=== PATIENT | female | born 1950 | race Caucasian/White ===

== ENCOUNTER 2022-05-30 16:41 | Emergency (ER) | payer MEDICARE, OTHER, SELFPAY ==
[2022-05-30 17:08] VITALS: BP 136/102; PULSE 99; RESP 20; TEMP 36.6; O2SAT 96
--- NOTE | 2022-05-30 17:43 | ED.EYEPROB ---
HPI - Eye Problem General Chief complaint: Eye Problems Stated complaint: infected L eye Time Seen by Provider: 05/30/22 16:46 Source: patient and family Mode of arrival: ambulatory Limitations: no limitations History of Present Illness MD chief complaint: eye pain and eye redness Onset (ago): hour(s) Onset description: sudden Duration: constant Location: left eye Eye Symptoms: burning and redness Place: street/outdoors Severity: mild Review of Systems Review of Systems: All systems reviewed & are unremarkable except as noted in HPI and below [facility] Past Medical History Medical History HTN (hypertension) Exam Const: General: healthy appearing and no acute distress Limitations: no limitations HENMT: Head: normal to inspection Ears: external ears normal Face/Nose/Sinus: Normal external nose present Face and sinus: normal facial exam Eyes: Conjunctivae: conjunctival abnormality EOM: EOMs intact bilaterally Direct Ophthalmoscopy: no photophobia Other: conjunctival injection with no foreign object visualized Neck: Neck: normal visual inspection Chest: Chest palpation & inspection: normal inspection of the chest Resp: Effort & Inspection: normal respiratory effort Auscultation: clear to auscultation bilaterally Cardio: Rate: regular rate Rhythm: regular rhythm GI: Auscultation: normal bowel sounds Urinary Catheter: Urinary Catheter: patent and draining Back/Spine/Pelvis: Back: no CVA tenderness Skin: General skin exam: normal color Rashes: no rashes Neuro: General: patient oriented x3, moves all extremities, no meningeal signs and no focal motor deficits Extrem: General: normal to inspection and no clubbing, cyanosis or edema Psych: Mental Status: mental status grossly normal Affect: normal affect Course Course Emergency Course: left I irrigated and examined there was no foreign object of the conjunctiva is irritated with clear discharge fluorescein stain was used and there was no corneal abrasion. Vital Signs Vital signs: Vital Signs Temperature 36.6 C 05/30/22 17:08 Pulse Rate 99 05/30/22 17:08 Respiratory Rate 20 05/30/22 17:08 Blood Pressure 136/102 H 05/30/22 17:08 Pulse Oximetry 96 05/30/22 17:08 Oxygen Delivery Room Air 05/30/22 17:08 Temperature 36.6 C 05/30/22 17:08 Pulse Rate 99 05/30/22 17:08 Respiratory Rate 20 05/30/22 17:08 Blood Pressure 136/102 H 05/30/22 17:08 Pulse Oximetry 96 05/30/22 17:08 Oxygen Delivery Room Air 05/30/22 17:08 Procedures FB Removal Eye Foreign Body #1: Foreign Body Removal Date: 05/30/22 Time Out performed: Yes Location: eye (L) Topical anesthetic used: tetracaine Evidence of corneal penetration: No Technique: irrigation and eye wash bottle Procedure performed under: direct visualization with magnification Post-procedure medication: ophthalmic antibiotic Patient tolerated procedure: well Complications: other ( No foreign body visualized no corneal abrasions) Critical Care Time Critical Care Time Critical Care Time: No Discharge Plan Discharge Clinical Impression: Bacterial conjunctivitis Patient Disposition: Home, Self-Care Condition: Stable Instructions: Antibiotic Form, Conjunctivitis (ED) Additional Instructions: take medicine as prescribed and follow-up with primary care physician if symptoms persist or worsen. Prescriptions: New ciprofloxacin HCl 0.3 % drops See Rx Instructions .ROUTE .COMPLEX 7 Days Qty: 5 0RF Rx Instructions: put 1-2 drps in affected eye(s) every 2hr up to 8 times/day x2days; then 4 times/day x5days Follow-up/Referrals: Cowyatt,Regis Jennings MD [Primary Care Provider] - Time of Disposition: 17:48
[2022-05-30 18:14] VITALS: BP 143/100; PULSE 96; RESP 20; TEMP 36.6; O2SAT 97
== END 2022-05-30 18:16 | disposition home or self-care (01) ==
LOC: CHSED 17:58
PROVIDERS: Emergency Provider Emergency Medicine; PCP Family Medicine
DX: H10.89 Other conjunctivitis (principal)
CPT/HCPCS: 99283; A9270

== ENCOUNTER 2024-10-26 10:35 | Outpatient (CLI) | payer MEDICARE, OTHER, SELFPAY ==
--- NOTE | ~2024-10-26 | XR_ITS ---
XR chest 2V Ordering provider: Angel Escamilla MD History: 74 years Female with . Subacute Cough and SOB X 2 months, HTN and COPD . Comparison: None. FINDINGS: MEDIASTINUM: The cardiac silhouette is not enlarged. LUNGS: No infiltrates, effusions or pneumothorax. OTHER: No free air under the diaphragm. Degenerative changes of the spine. IMPRESSION: No acute cardiopulmonary pathology. Reviewed, dictated and finalized at location A. ERENCE PRODUCER
[2024-10-26 11:42] LABS: Albumin Level 3.8 g/dL (3.4-5.0); Anion Gap 14 mmol/L (4-12); Blood Urea Nitrogen 21 mg/dL (7-18); Calcium 10.8 mg/dL (8.5-10.1); Carbon Dioxide 23 mmol/L (21-32); Chloride 100 mmol/L (98-108); Estimated Glomerular Filt Rate 34; Glucose 122 mg/dL (70-99); Osmolality Calculated 288 mOsm/kg (285-295); Phosphorus 3.3 mg/dL (2.6-4.7); Potassium 4.1 mmol/L (3.5-5.1); Sodium 137 mmol/L (136-145)
--- OUTSIDE RECORDS SUMMARY | 2024-10-26 12:06 | XMS_ITS | Data Portability ---
Author Organization [facility], [address] ([place]) Address [address] [place] [address] Care Team Providers Care Mining Helper Name Role Phone TOMEKA SAMUELS Primary Care Provider BRE OG Canvas Shrinker NELLY ANNE Canvas Shrinker [phone] Assessment Encounter Date Assessment Date Assessment LastModified by Organization Details LastModified Time 02/12/2024 02/12/2024 Ms. 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 Patient will discontinue all ibuprofen. Continue to monitor renal function panel at regular intervals. -Hypertension Blood pressure in the office today is under good control Continue patient on current medications -CKD/MBD Calcium and phosphorus levels are within normal range A nemia of chronic disease Hemoglobin is stable with no indication for TAMI. - KDIGO recommendations to prevent CKD progression -Advised to undertake moderate-intensity physical activity for a cumulative duration of at least 150 minutes per week, or to a level compatible with their cardiovascular and physical tolerance -Patients should consume a balanced, healthy diet that is high in vegetables, , plant-based proteins, unsaturated fats, and lower in processed meats, refined carbohydrates, and sweetened beverages. -Sodium (<2 g/day) and protein intake (0.8 g/kg/day) in accordance with recommendations for the general population. - Suggest NOT to prescribe bisphosphonate treatment in people with GFR <30 ml/min/1.73 m2 (GFR categories G4-G5) without a strong clinical rationale. -Individualize Hba1c target goal of 6.5 to 8 % based on underlying comorbidities -Cessation of tobacco -Avoid Nephrotoxic agents -such as NSAIDS -renal dosage of all medications to the appropriate GFR The patient had the opportunity to ask and have questions answered. The patient voiced an understanding of the diagnosis and of the care plan and intent to comply with it. Not available 02/12/2024 15:34:39 06/10/2024 06/10/2024 Ms. 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, bronchial asthma, HTN, HLD is here for follow-up appointment -ELIZA with Chronic kidney disease stage III with a baseline serum creatinine ranging between 0.9-1.3 Fluid and electrolyte balance are adequate at this time s.cr at 1.7 ,she has been checking BP at home and ranging between 110-120's Will lower the dosage of her losartan/hydrochlo rothiazide to 50/12.5 mg daily Recheck a BMP in 2 weeks and follow-up in the office -Hypertension Blood pressure in the office today is under good control Continue patient on current medications -CKD/MBD Calcium and phosphorus levels are within normal range A nemia of chronic disease Hemoglobin is stable with no indication for TAMI. - KDIGO recommendations to prevent CKD progression -Advised to undertake moderate-intensity physical activity for a cumulative duration of at least 150 minutes per week, or to a level compatible with their cardiovascular and physical tolerance -Patients should consume a balanced, healthy diet that is high in vegetables, , plant-based proteins, unsaturated fats, and lower in processed meats, refined carbohydrates, and sweetened beverages. -Sodium (<2 g/day) and protein intake (0.8 g/kg/day) in accordance with recommendations for the general population. - Suggest NOT to prescribe bisphosphonate treatment in people with GFR <30 ml/min/1.73 m2 (GFR categories G4-G5) without a strong clinical rationale. -Individualize Hba1c target goal of 6.5 to 8 % based on underlying comorbidities -Cessation of tobacco -Avoid Nephrotoxic agents -such as NSAIDS -renal dosage of all medications to the appropriate GFR The patient had the opportunity to ask and have questions answered. The patient voiced an understanding of the diagnosis and of the care plan and intent to comply with it. elie Not available 06/10/2024 14:26:38 07/08/2024 07/08/2024 Ms. 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 This is in the presence of a urinary tract infection at the time of labs. Patient will continue to hydrate well and to avoid NSAIDs. Patient is now off all antibiotic therapy. Patient's most recent microalbumin/creat inine ratio was noted to be minimal at 95.8. Continue to monitor renal function panel at regular intervals. -Hypertension Blood pressure in the office today is under good control Continue patient on current medications -CKD/MBD Calcium and phosphorus levels are within normal range A nemia of chronic disease Hemoglobin is stable with no indication for TAMI. - KDIGO recommendations to prevent CKD progression -Advised to undertake moderate-intensity physical activity for a cumulative duration of at least 150 minutes per week, or to a level compatible with their cardiovascular and physical tolerance -Patients should consume a balanced, healthy diet that is high in vegetables, , plant-based proteins, unsaturated fats, and lower in processed meats, refined carbohydrates, and sweetened beverages. -Sodium (<2 g/day) and protein intake (0.8 g/kg/day) in accordance with recommendations for the general population. - Suggest NOT to prescribe bisphosphonate treatment in people with GFR <30 ml/min/1.73 m2 (GFR categories G4-G5) without a strong clinical rationale. -Individualize Hba1c target goal of 6.5 to 8 % based on underlying comorbidities -Cessation of tobacco -Avoid Nephrotoxic agents -such as NSAIDS -renal dosage of all medications to the appropriate GFR The patient had the opportunity to ask and have questions answered. The patient voiced an understanding of the diagnosis and of the care plan and intent to comply with it. Not available 07/08/2024 17:15:59 Plan of Treatment Reminders Order Date Submit Date Provider Last Modified By Organization Details Last Modified Time Details Appointments Jose ramsey Patient 15.EST 2024 01:00P M Dr. Nelly Anne Not available Not available Not available Lab None recorde d. Referral None recorde d. Procedures None recorde d. Surgeries None recorde d. Imaging None recorde d. Medication Orders None recorde d. Patient TargetsNo targets recorded. Patient InstructionsNo instructions recorded. Reason for Referral None Reported. Results Created Date Observation Date Name Description Value Unit Range Abnormal Flag Note LastModifiedBy Organization Detail LastModifiedTime Result Notes None recorded. Problems Name Problem SNOMED Code Status Onset Date Resolution Date Notes Provider Name and Address Organization Details Recorded Time Chronic kidney disease stage 3 204011417 Active 2023 [facility] 4 10:01:01 Type 2 diabetes mellitus 84292409 [facility] 2023 [facility] 4 10:01:10 Benign essential hypertension 6711800 [facility] 2023 [facility] 4 10:01:19 Proteinuria 73860560 Active 2023 [facility] 4 10:01:31 Edema 905202461 Active 2023 [facility] 4 10:01:41 Hypokalemia 99420177 [facility] 2023 [facility] 4 10:01:57 Problem Notes None recorded. Medical Equipment None Reported. Allergies No known drug allergies Medications Name Sig Start Date Stop Date Status Note LastModified by Organization Details LastModified Time atorvastati n 10 mg tablet TAKE 1 TABLET BY MOUTH DAILY active Not Available Not Available No t Available glipizide 10 mg tablet TAKE 1 TABLET BY MOUTH TWICE DAILY active Not Available Not Available No t Available verapamil ER (SR) 180 mg tablet,exte nded release TAKE 1 TABLET BY MOUTH DAILY active Not Available Not Available No t Available potassium chloride ER 10 mEq tablet,exte nded release TAKE 1 TABLET BY MOUTH DAILY active Not Available Not Available No t Available pantoprazol e 20 mg tablet,lefty yed release TAKE 1 TABLET BY MOUTH TWICE DAILY active Not Available Not Available No t Available losartan 100 mg-hydrochl orothiazide 25 mg tablet TAKE 1 TABLET BY MOUTH DAILY active Not Available Not Available No t Available pantoprazol e 40 mg tablet,lefty yed release TAKE 1 TABLET BY MOUTH TWICE DAILY active Not Available Not Available No t Available levothyroxi ne 125 mcg tablet TAKE 1 TABLET BY MOUTH DAILY active Not Available Not Available No t Available bisacodyl 5 mg tablet,lefty yed release TAKE 2 TABLETS BY MOUTH INSTRUCTE D 07/08 completed Not Available Not Available Not Available fluticasone propionate 220 mcg/actuati on HFA aerosol inhaler INHALE 2 PUFFS BY MOUTH TWICE DAILY active Not Available Not Available No t Available furosemide 20 mg tablet active Not Available Not Available Not Available metoprolol succinate ER 25 mg tablet,exte nded release 24 hr TAKE 1 TABLET BY MOUTH DAILY active Not Available Not Available No t Available polyethylen e glycol 3350 17 gram/dose oral powder MIX 238 GRAMS IN 64 OUNCES OF GATORADE AND DRINK DIRECTED 07/08 completed Not Available Not Available Not Available fluticasone propionate 50 mcg/actuati on nasal spray,suspe nsion SHAKE WELL AND USE 2 SPRAYS IN EACH NOSTRIL TWICE DAILY active Not Available Not Available No t Available glipizide 5 mg tablet TAKE 1 TABLET BY MOUTH TWICE DAILY active Not Available Not Available No t Available nitrofurant oin monohydrate /macrocryst als 100 mg capsule TAKE 1 CAPSULE BY MOUTH TWICE DAILY FOR 5 DAYS 07/08 completed Not Available Not Available Not Available FreeStyle Ida 14 Day Sensor kit CHANGE EVERY 14 DAYS 06/10 completed Not Available Not Available Not Available Kerendia 10 mg tablet TAKE 1 TABLET BY MOUTH DAILY 2024 active Not Available Not Available Not Avai lable FreeStyle Ida 3 Sensor device CHANGE SENSOR EVERY 14 DAYS 06/10 completed Not Available Not Available Not Available FreeStyle Ida 3 Mozelle USE DIRECTED 06/10 completed Not Available Not Available Not Available Vitals Date Recorded Body height Heart rate Systolic blood pressure Diastolic blood pressure Provider Name and Address Organization Details Last Updated DateTime 02/12/2024 165.1 cm 80 /min 112 mm[Hg] 70 mm[Hg] [facility] 02/12/2024 14:22:53 Date Recorded Body height Body mass index (BMI) Body weight Heart rate Oxygen saturation Oxygen saturation in Arterial blood by Pulse oximetry Systolic blood pressure Diastolic blood pressure Provider Name and Address Organization Details Last Updated DateTime 165.1 cm 50.9 kg/m2 254148. 27 g 98 /min 94 % 94 % 140 mm[Hg] 86 mm[Hg] [facility] 13:55:51 Date Recorded Body height Heart rate Systolic blood pressure Diastolic blood pressure Provider Name and Address Organization Details Last Updated DateTime 07/08/2024 165.1 cm 102 /min 114 mm[Hg] 62 mm[Hg] [facility] 07/08/2024 15:27:50 Social History None recorded. Functional Status None recorded. Mental Status None recorded. Family History Nothing Reported. Medical History No medical history recorded. Gynecological HistoryNo gynecological history recorded. Obstetrics History GPAL:G 0 P 0 0 0 0 Past Encounters Encounter ID Performer Location Encounter Start Date Encounter Closed Date Diagnosis/Indication Diagnosis SNOMED-CT Code Diagnosis ICD10 Code Diagnosis Note [id number] Bre Og PA-C [facility] ([place]) [address] [place] [address] 02/12/2024 13:46:49 02/12/2024 14:45:04 Chronic kidney disease stage 3 895932585 N18.30 Benign ess ential hypertension 1071668 I10 Edema 436478410 R60.9 Hypokalemia 48116614 E87 .6 Proteinuria 18184914 R80 .9 Type 2 elise betes mellitus 88943596 E11.21 [id number] Nelly Anne MD [facility] ([place]) [address] [place] [address] 06/10/2024 13:49:15 06/10/2024 14:36:26 Chronic kidney disease stage 3 727287289 N18.30 Benign ess ential hypertension 7183455 I10 Edema 478277444 R60.9 Hypokalemia 97443262 E87 .6 Proteinuria 88317274 R80 .9 Type 2 elise betes mellitus 61934355 E11.21 [id number] Bre Og PA-C [facility] ([place]) [address] [place] [address] 07/08/2024 15:04:10 07/08/2024 16:05:49 Chronic kidney disease stage 3 888697670 N18.30 CBC, renal function panel, urine microalbum in/creatin ine ratio prior to next appointmen tfollow up in 2-4 wks Benign ess ential hypertension 9076006 I10 Edema 995924760 R60.9 Hypokalemia 99628416 E87 .6 Proteinuria 10900165 R80 .9 Type 2 elise betes mellitus 50614164 E11.21 Health Concerns Section Related Observation LastModified by Organization Detai ls LastModified Time None Recorded Concern Status LastModified by Organization Details LastModified Time None Recorded Advance Directives Directive None Recorded Payers Encounter Date Sequence Insurance Name Policy Number Policy Gómez Covered Member ID Gómez Member ID Guarantor Name 02/12/2024 1 [place] Kiah L Treptow [id number] Kiah Treptow 06/10/2024 1 [place] Kiah L Treptow [id number] Kiah Treptow 07/08/2024 1 [place] Kiah L Treptow [id number] Kiah Treptow Notes Date Note Type Note Provider Name and Address Organization Details Recorded Time 02/12/2024 text/html Ms. 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 Patient denies any fever, chills, or sweats. She denies any chest pain or shortness of breath. She continues to hydrate well and to avoid NSAIDs. Patient has been taking 1 ibuprofen daily due to worsening knee pain. Bre Og PA-C [address] [place] [address], [phone], [facility] 02/12/2024 15:35:07 06/10/2024 text/html Ms. 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 Nelly Anne MD [address] [place] [address], [phone], [facility] 06/10/2024 14:27:27 07/08/2024 text/html Ms. 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 Patient does state that she is going to be moving all of her healthcare down closer to her son who lives down in [place]. Bre Og PA-C [address] [place] [address], [phone], [facility] 07/08/2024 17:16:27 OBGyn Episode No OBEpisode recorded.
--- OUTSIDE RECORDS SUMMARY | 2024-10-26 12:06 | XMS_ITS | Clinical Summary ---
Author Organization [facility] Address [address] [place] [address] Care Team Providers Care Clinic Administrator Name Role Phone Andreia Nilda YOUNG Primary Care Provider [phone] Allergies Active Allergy Reactions Criticality Noted Date Comments Albuterol Shakiness 02/02/2016 Dapagliflozin Rash,Swelling Low 05/15/2023 Medications verapamil SR 180 MG tablet Take 1 tablet (180 mg total) by mouth daily. 04/29/2020 Active potassium chloride CR 10 MEQ tablet Take 1 tablet (10 mEq total) by mouth every other day. 05/24/2020 Active metoprolol succinate ER 25 MG 24 hr tablet Take 1 tablet (25 mg total) by mouth daily. 05/21/2020 Active losartan-hydroC HLOROthiazide 100-25 MG tablet Take 1 tablet by mouth daily. 05/18/2020 Active levothyroxine 125 MCG tablet Take 1 tablet (125 mcg total) by mouth daily. 04/26/2020 Active glipiZIDE 5 MG tablet Take 3 tablets (15 mg total) by mouth 2 (two) times daily. 04/20/2020 Active atorvastatin (LIPITOR) 10 MG tablet Take 1 tablet (10 mg total) by mouth daily. 04/07/2023 Active KERENDIA 10 MG Tab daily. 07/08/2022 Active FLOVENT HFA 220 MCG/ACT inhaler Inhale 2 puffs into the lungs 2 (two) times daily. 03/17/2014 Active Fluticasone Furoate 50 MCG/ACT AEROSOL POWDER, BREATH ACTIVATED 09/27/2019 Active Continuous Blood Gluc Sensor (FREESTYLE JUJU 14 DAY SENSOR) Misc CHANGE EVERY 14 DAYS 09/04/2023 Active fluticasone propionate (FLONASE) 50 MCG/ACT nasal spray 1 spray by Each Nostril route 2 (two) times daily. 08/27/2023 Active Family History Medical History Relation Comments Breast Cancer Paternal Aunt Breast Cancer Paternal Grandmother Relation Status Comments Paternal Aunt Paternal Grandmother Social History Tobacco Use Types Packs/Day Years Used Date Smoking Tobacco: Former Smokeless Tobacco: Never Comments:QUIT 35 YRS AGO Alcohol Use Standard Drinks/Week Comments Never 0 (1 standard drink = 0.6 oz pur e alcohol) AUDIT-C Answer Date Recorded Q1: How often do you have a drink containing alc ohol? Never 06/06/2020 Average Number of Drinks Not on file 020 Frequency of Binge Drinking Not on file 05/25 Comments No Sex and Gender Information Value Date Recorded Sex Assigned at Not on file Legal Sex Female 7:17 PM CDT Gender Identity Not on file Sexual Orientation Not on file Last Filed Vital Signs Vital Sign Reading Time Taken Comments Blood Pressure 123/77 10/10/2023 8:16 AM VARITYPIST Pulse 79 10/10/2023 8:16 AM VARITYPIST Temperature 35.7 C (96.2 F) 10/10/2023 8:16 AM VARITYPIST Respiratory Rate 16 10/10/2023 8:16 AM VARITYPIST Oxygen Saturation 94% 10/10/2023 8:16 AM VARITYPIST Inhaled Oxygen Concentration - - Weight 136.1 kg (300 lb) 10/03/2023 10:21 AM VARITYPIST Height 157.5 cm (5' 2 ) 10/03/2023 10:21 AM VARITYPIST Body Mass Index 54.87 10/03/2023 10:21 AM VARITYPIST Plan of Treatment Health Maintenance Due Date Last Done Comments Hepatitis C 1969 DTaP, Tdap and Td Vaccines (1 - Tdap) 1970 RSV Immunization or 60+ Years (1 - Risk 60-74 years 1-dose series) 2011 Annual Medicare Wellness Visit 2016 Dexa Scan (General) 2016 Pneumococcal Vaccine: 65+ Years (1 of 1 - PCV) 2016 Zoster Vaccines (2 of 3) 07/04/2016 05/09/2016 COVID-19 Vaccine (1 - season) 2024 Influenza Adult (#1) 2024 05/10/2017 Mammogram Screening 01/14/2026 01/15/2024, 11/19/2022, 06/07/2020, Additional history exists Colorectal Cancer Screening Colonoscopy (10 Years) 05/20/2033 05/20/2023, 05/20/2023, 06/13/2020, Additional history exists EGD-Jackson's Surveillance Discontinued 10/10/2023, Meningococcal B Vaccine Aged Out No l onger eligible based on patient's age to complete this topic Meningococcal Vaccine Aged Out No saskia ja eligible based on patient's age to complete this topic RSV Immunizations Under 20 Months Aged Out No longer eligible based on patient's age to complete this topic Procedures Procedure Name Priority Date/Time Associated Diagnosis Comments MG SCREENING W JASPREET ADEEL DIGI Routine 01/15/2024 1:17 PM CDT Visit for screening mammogram ENDOSCOPY (SCAN ORDER) 10/10/2023 6:38 AM VARITYPIST COLONOSCOPY 05/20/2023 6:46 AM CDT from Last 3 Months or Most Recently Relevant to Health Maintenance Results * MG SCREENING W JASPREET ADEEL DIGI (01/15/2024 1:17 PM CDT) Anatomical Region Laterality Modality Breast Bilateral Mammography 01/15/2024 2:54 PM CDT Impressions 01/15/2024 2:55 PM CDT IMPRESSION: No suspicious change since the previous exams. Recommendation: 1: Routine Screening Bilateral in 1 Year Assessment: ACR BI-RADS 2 - BENIGN FINDING(S) Ordered By: NILDA BOSWELL Interpreted By: Percy Loza MD, 01/15/2024 2:54 PM Narrative 01/15/2024 2:55 PM CDT Examination: Digital screening mammogram with CAD. Clinical history: Asymptomatic patient presents for routine screening. Comparison: 11/19/2022, 05/30/2020, 05/17/2019, 03/25/2017. Technique: Bilateral digital mammograms. The exam was interpreted with the use of a computer-aided detection (CAD) system. Additional 3-D tomosynthesis images were acquired. Tissue density: The breast tissue contains scattered fibroglandular densities. Findings: The breast tissue contains scattered fibroglandular densities. Benign-appearing calcification noted. No suspicious mass, microcalcification or area of architectural distortion can be identified. From a mammographic standpoint, routine followup in one year would seem adequate. Nilda YOUNG MAMMO Final Resu lt * ENDOSCOPY (SCAN ORDER) (10/10/2023 6:38 AM VARITYPIST) Simone Solomon MD SCANNING Final Result * Colonoscopy (05/20/2023 6:46 AM CDT) Simone Solomon MD GI PROCEDURE ORDERABLES Final Result from Last 3 Months or Most Recently Relevant to Health Maintenance Insurance MEDICARE [facility] Care Teams Clinic Administrator Relationship Specialty Start Date End Date Nilda Boswell APNP [address] [place] [address] [place] [address] PCP - General Nurse Practitioner Family 05/14/23
--- OUTSIDE RECORDS SUMMARY | 2024-10-26 12:06 | XMS_ITS | Clinical Summary ---
Author Organization [facility] Address [address] [place] [address] Phone Care Team Providers Care Steamer Blocker Name Role Phone Yousuf Calixto MD Primary Care Provider [phone] Allergies No known active allergies Medications verapamil (CALAN SR; ISOPTIN SR) 180 MG Tablet Controlled Release Take 180 mg by mouth daily. 0 8 Active atorvastatin (LIPITOR) 10 MG Tablet Take 10 mg by mouth nightly. 0 9 Active fluticasone (FLONASE) 50 MCG/ACT Suspension 2 Sprays by Nasal route 2 times daily. 0 9 Active FLOVENT HFA 220 MCG/ACT Aerosol take 1 Puff by inhalation daily. 9 Active hydroCHLOROthia zide 25 MG Tablet Take 25 mg by mouth daily. 9 Active levothyroxine (SYNTHROID) 125 MCG Tablet Take 125 mcg by mouth daily. 9 Active losartan (COZAAR) 100 MG Tablet Take 100 mg by mouth daily. 9 Active zolpidem (AMBIEN CR) 6.25 MG Tablet Controlled Release Take 6.25 mg by mouth nightly. 9 Active celecoxib (CELEBREX) 200 MG CapsuleIndicati ons:Arthritis Take 200 mg by mouth 2 times daily. Indications: Arthritis Active Pseudoephedrine -guaiFENesin (GUAIFENESIN-PS EUDOEPHEDRINE PO) Take 1 Tab by mouth daily. Active glipiZIDE (GLUCOTROL) 5 MG Tablet Take 1 Tab by mouth 2 times daily. 90 Tab 9 Active furosemide (LASIX) 20 MG Tablet As needed only for lower ext swelling 90 Tab 9 Active predniSONE (DELTASONE) 10 MG Tablet 4 TABS A DAY x3 DAYS, THEN 3 TABS A DAY x3 DAYS, THEN 2 TABS A DAY x3 DAYS, THEN 1 TAB A DAY x3 DAYS, THEN HALF TAB A DAY x3 DAYS 33 Tab 9 Active levalbuterol (XOPENEX HFA) 45 MCG/ACT Aerosol take 2 Puffs by inhalation every 4 hours as needed for Wheezing or Cough. 1 Inhaler 9 Active Active Problems Problem Noted Date Diagnosed Date Influenza B 11/16/2018 COPD with acute exacerbation 11/16/2018 Hypertension 11/16/2018 Diabetes mellitus due to underlying condition Family History Medical History Relation Name Comments Cancer Brother 1 Hypertension Brother 1 Cancer Brother 2 Hypertension Brother 2 Hypertension Brother 3 Hypertension Father Hypertension Mother Breast Cancer Paternal Aunt Breast Cancer Paternal Grandmother Relation Name Status Comments Brother 1 Alive Brother 2 Brother 3 Brother 4 Daughter Alive Father Mother Paternal Aunt Paternal Grandmother Sister Alive Son 1 Alive Son 2 Alive Social History Tobacco Use Types Packs/Day Years Used Date Smoking Tobacco: Former Smokeless Tobacco: Never Tobacco Cessation:Counseling Given: No Alcohol Use Standard Drinks/Week Comments Never 0 (1 standard drink = 0.6 oz pur e alcohol) AUDIT-C Answer Date Recorded Frequency of Alcohol Consumption Never 11/16/2018 Average Number of Drinks Not on file 019 Frequency of Binge Drinking Not on file 10/24 PHQ-2 Answer Date Recorded PHQ-2 Score 0 04/29/2019 Comments Unknown Sex and Gender Information Value Date Recorded Sex Assigned at Not on file Legal Sex Female 3:27 AM FOOD PREP WORKER Gender Identity Not on file Sexual Orientation Not on file Last Filed Vital Signs Vital Sign Reading Time Taken Comments Blood Pressure 169/111 11/17/2018 4:11 PM CDT Pulse 102 11/17/2018 4:11 PM CDT Temperature 36.7 C (98.1 F) 11/17/2018 12:58 PM CDT Respiratory Rate 20 11/17/2018 12:5 8 PM CDT Oxygen Saturation 93% 11/17/2018 6:1 4 PM CDT with excertion walk to nurse station Inhaled Oxygen Concentration - - Weight 146.2 kg (322 lb 4 oz) 11/16/2018 3:43 PM CDT Height 157.5 cm (5' 2 ) 11/16/2018 3:43 PM CDT Body Mass Index 58.94 11/16/2018 3:43 PM CDT Plan of Treatment Health Maintenance Due Date Last Done Comments DEXA Bone Density 1950 Diabetes: Eye Exam 1950 Diabetes: Foot Exam 1950 Hepatitis C Virus (HCV) Screening 1950 Colonoscopy 1996 Colorectal Cancer Screening 1996 Cologuard 2001 Immunochemical Fecal Occult Blood 2001 Diabetes: Hemoglobin A1c 01/29/2010 009, 05/08/2009, 01/27/2009, Additional history exists Respiratory Syncytial Virus (RSV) Immunization (Adult) (1 - Risk 60-74 years 1-dose series) 2011 Pneumococcal Immunization (50+ years) (2 of 2 - PCV) 12/30/2015 12/29/2014 Zoster Immunization (2 of 3) 07/04/2016 05/09/2016 Diabetes: Nephropathy Screening 11/17/2019 11/16/2018, 07/31/2009, 01/27/2009 Influenza Immunization (#1) 04/25/202404/25, 05/02/2016, 05/29/2015, Additional history exists SARS-COV-2 Immunization () 04/25/2024 05/29/2021, 11/03/2020, 10/13/2020 DTaP/Tdap/Td Immunization Discontinued 10/26/2014, 06/2005 TdaP Immunization Completed 10/26/2014 Pneumococcal Immunization Combined Discontinued 12/29/2014 Mammogram Discontinued 03/25/2017 Hepatitis B Immunization Aged Out No longer eligible based on patient's age to complete this topic Meningococcal Immunization (ACWY) Aged Out No longer eligible based on patient's age to complete this topic Rotavirus Immunization Aged Out No lo nger eligible based on patient's age to complete this topic Procedures Procedure Name Priority Date/Time Associated Diagnosis Comments CMP (COMPREHENSIVE METABOLIC PANEL) Routine 11/16/2018 4:42 PM CDT JAME SCREENING BILATERAL DIGITAL W CAD Routine 03/25/2017 9:51 AM CDT Visit for screening mammogram HEMOGLOBIN A1C W/ ESTIMATED GLUCOSE Routine 07/31/2009 9:00 AM FOOD PREP WORKER from Last 3 Months or Most Recently Relevant to Health Maintenance Results * (ABNORMAL) Comprehensive Metabolic Panel (CMP) (11/16/2018 4:42 PM CDT) SODIUM 136 133 - 145 mmol/L 11/16/2018 5:56 PM T [facility] POTASSIUM 3.4(L) 3.5 - 5.1 mmol/L 11/16/2018 5:56 PM [facility] CHLORIDE 99 96 - 108 mmol/L 11/16/2018 5:56 PM [facility] CO2, VENOUS 24 21 - 32 mmol/L 11/16/2018 5:56 PM [facility] ANION GAP 16.4 10.0 - 20.0 mmol/L 11/16/2018 5:56 PM [facility] GLUCOSE 288(H) 80 - 115 mg/dL 11/16/2018 5:56 PM [facility] BUN 29(H) 6 - 19 mg/dL 11/16/2018 5:56 PM [facility] CREATININE, BLOOD 1.10 0.40 - 1.10 mg/dL 11/16/2018 5:56 PM [facility] BUN/CREATININE RATIO 26(H) 12 - 20 ratio 11/16/2018 5:56 PM [facility] TOTAL PROTEIN 7.6 6.0 - 8.2 g/dL 11/16/2018 5:56 PM [facility] ALBUMIN 3.7 3.4 - 4.8 g/dL 11/16/2018 5:56 PM [facility] CALCIUM 10.0 8.8 - 10.0 mg/dL 11/16/2018 5:56 PM [facility] T BILI 0.6 0.0 - 1.0 mg/dL 11/16/2018 5:56 PM T [facility] SGOT (AST) 17 0 - 37 U/L 11/16/2018 5:56 PM [facility] SGPT (ALT) 27 12 - 45 U/L 11/16/2018 5:56 PM [facility] ALKALINE PHOSPHATASE 89 39 - 117 U/L 11/16/2018 5:56 PM [facility] GFR, EST. NONAFRICAN 48 11/16/2018 5:56 PM [facility] Comment: Reference interval for MDRD GFR: GFR >=60: Satisfactory kidney function GFR <60: Chronic kidney disease GFR <15: Kidney failure Estimated GFR may be less reliable in patients >70yr, women, patients with serious comorbid conditions, or patients with extremes of body size, muscle mass, or nutritional status. Revised 11/18/07 (National Kidney Disease Education Program) GFR, EST. 57(L) >=60 019 5:56 PM [facility] Comment: Reference interval for MDRD GFR: GFR >=60: Satisfactory kidney function GFR <60: Chronic kidney disease GFR <15: Kidney failure Estimated GFR may be less reliable in patients >70yr, women, patients with serious comorbid conditions, or patients with extremes of body size, muscle mass, or nutritional status. Revised 11/18/07 (National Kidney Disease Education Program) Blood specimen (specimen) Venipuncture / Unknown 11/16/2018 4:42 PM CDT 11/16/2018 4:51 PM CDT [facility] - 11/16/2018 5:56 PM CDT Venipuncture should occur prior to sulfasalazine and/or sulfapyridine administration due to the potential for falsely depressed results for ALT and AST. Glucose can be falsely depressed after administration of sulfasalazine, and falsely elevated with administration of sulfapyridine. us Yue Campos MD CHEMISTRY ORDERABLES Final Result [facility] [address] [place] [address] * JAME SCREENING BILATERAL DIGITAL W CAD (03/25/2017 9:51 AM CDT) Anatomical Region Laterality Modality breast Bilateral Mammography 03/25/2017 9:54 AM CDT Impressions 03/25/2017 9:54 AM CDT ASSESSMENT: BI-RADS 2; BENIGN RECOMMENDATIONS: Yearly screening mammogram in 1 year. CAD used DICTATION LOCATION: [facility] Signed By: Danielito Emanuel M.D. Narrative 03/25/2017 9:54 AM CDT PATIENT HISTORY: Patient is postmenopausal. Family history of breast cancer at age 50 in paternal aunt, breast cancer at age 90 in paternal grandmother. Patient's BMI is 54.9. Last mammogram was performed 4 years and 3 months ago. REASON FOR EXAM: screening, asymptomatic. FINDINGS: JAME SCREENING BILATERAL DIGITAL W CAD Bilateral CC and MLO view(s) were taken. Technologist: Alanis Brambila, RT(R) Prior study comparison: January 06, 2013, bilateral NMA SCR MAMMO DDI performed at [facility]. The breast tissue is average. No significant changes when compared with prior studies. Finding: Calcifications Laterality: bilateral Description: There are typically benign punctate, rim, round calcifications. Distribution is diffuse/scattered. us Yousuf Calixto MD IMG MAMMO ORDERABLES Final Resul t * (ABNORMAL) HBA1C, EST GLUCOSE (07/31/2009 9:00 AM FOOD PREP WORKER) HGB-A1C 6.5(H) 4.0 - 6.0 % [facility] Est Average Glucose 139.9 MG/DL [facility] 07/31/2009 9:00 AM FOOD PREP WORKER 07/31/2009 7:45 PM FOOD PREP WORKER us Alpesh Tay DO CHEMISTRY ORDERABLES Final Res ult [facility] [address] [place] [address] from Last 3 Months or Most Recently Relevant to Health Maintenance Insurance [employer] [facility] BENEFITS MEDICARE Advance Directives * Full Code (Latest Code Status on File) Date Activated Date Inactivated Comments 11/16/2018 4:35 PM 11/17/2018 8:40 PM CPR-Full Josef atment: FULL ARREST: Attempt Resuscitation/CPR wit intubation and mechanical ventilation. PRE-ARREST: Use entire range of life support measures to stabilize the patient. Care Teams Steamer Blocker Relationship Specialty Start Date End Date Yousuf Calixto MD [address] [place] [address] PCP - General Family Medicine 05/18/15
[2024-10-27 13:24] LABS: Parathyroid Intact 51 pg/mL (16-77)
[2024-10-28 01:19] LABS: Vitamin D 25 Hydroxy 47 ng/mL (30-100)
== END 2024-10-26 10:36 | disposition home or self-care (01) ==
PROVIDERS: PCP Family Medicine; Visit Provider Internal Medicine Nephrology
DX: N18.32 Chronic kidney disease, stage 3b (principal); E11.22 Type 2 diabetes mellitus with diabetic chronic kidney disease; I12.9 Hypertensive chronic kidney disease with stage 1 through stage 4 chronic kidney disease, or unspecified chronic kidney disease; N25.81 Secondary hyperparathyroidism of renal origin; E55.9 Vitamin D deficiency, unspecified; R19.7 Diarrhea, unspecified; R05.2 Subacute cough
CPT/HCPCS: 36415; 71046; 80069; 82306; 83970

== ENCOUNTER 2024-10-30 14:20 | Outpatient (CLI) | payer MEDICARE, OTHER, SELFPAY ==
--- OUTSIDE RECORDS SUMMARY | 2024-10-30 14:25 | XMS_ITS | Clinical Summary ---
Author Organization [facility] Address [address] [place] [address] Phone Care Team Providers Care Estate Tax Examiner Name Role Phone Yousuf Calixto MD Primary Care Provider [phone] Allergies No known active allergies Medications verapamil [...] on file Legal Sex Female 3:27 AM SCRAP CUTTER Gender Identity Not on file Sexual Orientation [...] W/ ESTIMATED GLUCOSE Routine 07/31/2009 9:00 AM SCRAP CUTTER from Last 3 Months or Most Recently Relevant to Health Maintenance Results * (ABNORMAL) Comprehensive Metabolic Panel (CMP) (11/16/2018 4:42 PM CDT) SODIUM 136 133 - 145 mmol/L 11/16/2018 5:56 PM T [facility] POTASSIUM 3.4(L) 3.5 - 5.1 mmol/L 11/16/2018 5:56 PM [facility] CHLORIDE 99 96 - 108 mmol/L 11/16/2018 5:56 PM [facility] CO2, VENOUS 24 21 - 32 mmol/L 11/16/2018 5:56 PM [facility] ANION GAP 16.4 10.0 - 20.0 mmol/L 11/16/2018 5:56 PM [facility] GLUCOSE 288(H) 80 - 115 mg/dL 11/16/2018 5:56 PM [facility] BUN 29(H) 6 - 19 mg/dL 11/16/2018 5:56 PM [facility] CREATININE, BLOOD 1.10 0.40 - 1.10 mg/dL 11/16/2018 5:56 PM [facility] BUN/CREATININE RATIO 26(H) 12 - 20 ratio 11/16/2018 5:56 PM [facility] TOTAL PROTEIN 7.6 6.0 - 8.2 g/dL 11/16/2018 5:56 PM [facility] ALBUMIN 3.7 3.4 - 4.8 g/dL 11/16/2018 5:56 PM [facility] CALCIUM 10.0 8.8 - 10.0 mg/dL 11/16/2018 5:56 PM [facility] T BILI 0.6 0.0 - 1.0 mg/dL 11/16/2018 5:56 PM T [facility] SGOT (AST) 17 0 - 37 U/L 11/16/2018 5:56 PM [facility] SGPT (ALT) 27 12 - 45 U/L 11/16/2018 5:56 PM [facility] ALKALINE PHOSPHATASE 89 39 - 117 U/L 11/16/2018 5:56 PM [facility] GFR, EST. NONAFRICAN 48 11/16/2018 5:56 PM [facility] Comment: Reference interval for MDRD GFR: GFR >=60: Satisfactory kidney function GFR <60: Chronic kidney disease GFR <15: Kidney failure Estimated GFR may be less reliable in patients >70yr, women, patients with serious comorbid conditions, or patients with extremes of body size, muscle mass, or nutritional status. Revised 11/18/07 (National Kidney Disease Education Program) GFR, EST. 57(L) >=60 019 5:56 PM [facility] Comment: Reference interval for MDRD GFR: GFR [...] 4:42 PM CDT 11/16/2018 4:[address] [facility] - 11/16/2018 5:56 PM CDT Venipuncture should occur prior to sulfasalazine and/or sulfapyridine administration due to the potential for falsely depressed results for ALT and AST. Glucose can be falsely depressed after administration of sulfasalazine, and falsely elevated with administration of sulfapyridine. us Yue Campos MD CHEMISTRY ORDERABLES Final Result [facility] [address] [place] [address] * JAME SCREENING BILATERAL DIGITAL W CAD (03/25/2017 9:51 AM CDT) Anatomical Region Laterality Modality breast Bilateral Mammography 03/25/2017 9:54 AM CDT Impressions 03/25/2017 9:54 AM CDT ASSESSMENT: BI-RADS 2; BENIGN RECOMMENDATIONS: Yearly screening mammogram in 1 year. CAD used DICTATION LOCATION: [facility] Signed By: Danielito Emanuel M.D. Narrative 03/25/2017 [...] (ABNORMAL) HBA1C, EST GLUCOSE (07/31/2009 9:00 AM SCRAP CUTTER) HGB-A1C 6.5(H) 4.0 - 6.0 % [facility] Est Average Glucose 139.9 MG/DL [facility] 07/31/2009 9:00 AM SCRAP CUTTER 07/31/2009 7:45 PM SCRAP CUTTER us Alpesh Tay DO CHEMISTRY ORDERABLES Final Res ult [facility] [address] [place] [address] from Last 3 Months or Most Recently Relevant to Health Maintenance Insurance [employer] [facility] BENEFITS MEDICARE Advance Directives * Full Code (Latest Code Status on File) Date Activated Date Inactivated Comments 11/16/2018 4:35 PM 11/17/2018 8:40 PM CPR-Full Josef atment: FULL ARREST: Attempt Resuscitation/CPR wit intubation and mechanical ventilation. PRE-ARREST: Use entire range of life support measures to stabilize the patient. Care Teams Estate Tax Examiner Relationship Specialty Start Date End Date Yousuf Calixto MD [address] [place] [address] PCP - General Family Medicine 05/18/15
--- OUTSIDE RECORDS SUMMARY | 2024-10-30 14:25 | XMS_ITS | Data Portability ---
Author Organization [facility], [address] ([place]) Address [address]th [place] [address] Care Team Providers Care [place] Leverman Name Role Phone TOMEKA SAMUELS Primary Care Provider [phone] BRE OG Hole Filler NELLY ANNE Hole Filler Assessment Encounter Date Assessment Date Assessment LastModified [...] Recorded Time Chronic kidney disease stage 3 683552308 Active 2023 [facility] 4 10:01:01 Type 2 diabetes mellitus 08584203 [facility] 2023 [facility] 4 10:01:10 Benign essential hypertension 7320063 [facility] 2023 [facility] 4 10:01:19 Proteinuria 27887934 Active 2023 [facility] 4 10:01:31 Edema 192797233 Active 2023 [facility] 4 10:01:41 Hypokalemia 24271505 [facility] 2023 [facility] 4 10:01:57 Problem Notes None recorded. Medical [...] Not Available Not Available FreeStyle Ida 3 [place] USE DIRECTED 06/10 completed Not Available Not Available Not Available Vitals Date Recorded Body height Heart rate Systolic blood pressure Diastolic blood pressure Provider Name and Address Organization Details Last Updated DateTime 02/12/2024 165.1 cm 80 /min 112 mm[Hg] 70 mm[Hg] [facility] 02/12/2024 14:22:53 Date Recorded Body height Body mass index (BMI) Body weight Heart rate Oxygen saturation Oxygen saturation in Arterial blood by Pulse oximetry Systolic blood pressure Diastolic blood pressure Provider Name and Address Organization Details Last Updated DateTime 165.1 cm 50.9 kg/m2 941849. 27 g 98 /min 94 % 94 % 140 mm[Hg] 86 mm[Hg] [facility] 13:55:51 Date Recorded Body height Heart rate Systolic blood pressure Diastolic blood pressure Provider Name and Address Organization Details Last Updated DateTime 07/08/2024 165.1 cm 102 /min 114 mm[Hg] 62 mm[Hg] [facility] 07/08/2024 15:27:50 Social History None recorded. Functional Status None recorded. Mental Status None recorded. Family History Nothing Reported. Medical History No medical history recorded. Gynecological HistoryNo gynecological history recorded. Obstetrics History GPAL:G 0 P 0 0 0 0 Past Encounters Encounter ID Performer Location Encounter Start Date Encounter Closed Date Diagnosis/Indication Diagnosis SNOMED-CT Code Diagnosis ICD10 Code Diagnosis Note [id number] Bre Og PA-C [facility] ([place]) [address] [place] [address] 02/12/2024 13:46:49 02/12/2024 14:45:04 Chronic kidney disease stage 3 544596211 N18.30 Benign ess ential hypertension 7086571 I10 Edema 083230614 R60.9 Hypokalemia 41291897 E87 .6 Proteinuria 99068491 R80 .9 Type 2 elise betes mellitus 19934929 E11.21 [id number] Nelly Anne MD [facility] ([place]) [address] [place] [address] 06/10/2024 13:49:15 06/10/2024 14:36:26 Chronic kidney disease stage 3 221166683 N18.30 Benign ess ential hypertension 2399526 I10 Edema 866434792 R60.9 Hypokalemia 25183228 E87 .6 Proteinuria 25747520 R80 .9 Type 2 elise betes mellitus 30790712 E11.21 [id number] Bre Og PA-C [facility] ([place]) [address] [place] [address] 07/08/2024 15:04:10 07/08/2024 16:05:49 Chronic kidney disease stage 3 705475464 N18.30 CBC, renal function panel, urine microalbum in/creatin ine ratio prior to next appointmen tfollow up in 2-4 wks Benign ess ential hypertension 1905078 I10 Edema 251946900 R60.9 Hypokalemia 40788699 E87 .6 Proteinuria 71585025 R80 .9 Type 2 elise betes mellitus 46723838 E11.21 Health Concerns Section Related Observation LastModified by Organization Detai ls LastModified Time None Recorded Concern Status LastModified by Organization Details LastModified Time None Recorded Advance Directives Directive None Recorded Payers Encounter Date Sequence Insurance Name Policy Number Policy Gómez Covered Member ID Gómez Member ID Guarantor Name 02/12/2024 1 [place] Kiah L Treptow [id number] 9 Kiah Treptow 06/10/2024 1 [place] Kiah L Treptow [id number] 9 Kiah Treptow 07/08/2024 1 [place] Kiah L Treptow [id number] 9 Kiah Treptow Notes Date Note Type [...] knee pain. Bre Og PA-C [address] [place] [address], [phone], [facility] 02/12/2024 15:35:07 06/10/2024 text/html Ms. Del Cid [...] 10 systolic. Nelly Anne MD [address] [place] [address], [phone], [facility] 06/10/2024 14:27:27 07/08/2024 text/html Ms. Del Cid [...] to her son who lives down in [place]. Bre Og PA-C [address] [place] [address], [phone], [facility] 07/08/2024 17:16:27 OBGyn Episode No OBEpisode recorded.
--- OUTSIDE RECORDS SUMMARY | 2024-10-30 14:25 | XMS_ITS | Clinical Summary ---
Author Organization [facility] Address [address] [place] [address] Care Team Providers Care Petrophysicist Name Role Phone Andreia Nilda YOUNG Primary Care Provider [phone] Allergies Active Allergy Reactions Criticality Noted Date [...] Comments Blood Pressure 123/77 10/10/2023 8:16 AM SALES ACCOUNT COORDINATOR Pulse 79 10/10/2023 8:16 AM SALES ACCOUNT COORDINATOR Temperature 35.7 C (96.2 F) 10/10/2023 8:16 AM SALES ACCOUNT COORDINATOR Respiratory Rate 16 10/10/2023 8:16 AM SALES ACCOUNT COORDINATOR Oxygen Saturation 94% 10/10/2023 8:16 AM SALES ACCOUNT COORDINATOR Inhaled Oxygen Concentration - - Weight 136.1 kg (300 lb) 10/03/2023 10:21 AM SALES ACCOUNT COORDINATOR Height 157.5 cm (5' 2 ) 10/03/2023 10:21 AM SALES ACCOUNT COORDINATOR Body Mass Index 54.87 10/03/2023 10:21 AM SALES ACCOUNT COORDINATOR Plan of Treatment Health Maintenance Due Date [...] mammogram ENDOSCOPY (SCAN ORDER) 10/10/2023 6:38 AM SALES ACCOUNT COORDINATOR COLONOSCOPY 05/20/2023 6:46 AM CDT from Last [...] * ENDOSCOPY (SCAN ORDER) (10/10/2023 6:38 AM SALES ACCOUNT COORDINATOR) Simone Solomon MD SCANNING Final Result * Colonoscopy (05/20/2023 6:46 AM CDT) Simone Solomon MD GI PROCEDURE ORDERABLES Final Result from Last 3 Months or Most Recently Relevant to Health Maintenance Insurance MEDICARE [facility] Care Teams Petrophysicist Relationship Specialty Start Date End Date Nilda Boswell APNP [address] [place] [address] [place] [address] PCP - General Nurse Practitioner Family 05/14/23
[2024-10-31 13:02] LABS: Toxigenic C. Diff NEGATIVE (NEGATIVE)
[2024-10-31 13:02] LABS: Toxigenic C. Diff NEGATIVE (NEGATIVE)
== END 2024-10-30 14:21 | disposition home or self-care (01) ==
LOC: CHSLAB 14:23
PROVIDERS: PCP Family Medicine; Visit Provider Family Medicine
DX: R19.7 Diarrhea, unspecified (principal)
CPT/HCPCS: 84376; 87045; 87177; 87209; 87427; 87449; 87493

== ENCOUNTER 2024-11-11 08:52 | Outpatient (CLI) | payer MEDICARE, SELFPAY ==
--- NOTE | ~2024-11-11 | XR_ITS ---
Clinical Indication: Bronchitis PA and lateral views of the chest: Comparison: 10/26/2024 Findings: The lungs are clear, without evidence of focal consolidation or pleural effusion. Cardiome diastinal silhouette is within normal limits. Bones and soft tissues are unremarkable. Impression: Normal chest. Reviewed, dictated and finalized at location . Impression: Normal chest.
--- OUTSIDE RECORDS SUMMARY | 2024-11-11 09:09 | XMS_ITS | Clinical Summary ---
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0 - 20.0 mmol/L 11/16/2018 5:56 PM [facility] GLUCOSE 288(H) 80 - 115 mg/dL 11/16/2018 5:56 PM [facility] BUN 29(H) 6 - 19 mg/dL 11/16/2018 5:56 PM [facility] CREATININE, BLOOD 1.10 0.40 - 1.10 mg/dL 11/16/2018 5:56 PM [facility] BUN/CREATININE RATIO 26(H) 12 - 20 ratio 11/16/2018 5:56 PM [facility] TOTAL PROTEIN 7.6 6.0 - 8.2 g/dL 11/16/2018 5:56 PM [facility] ALBUMIN 3.7 3.4 - 4.8 g/dL 11/16/2018 5:56 PM [facility] CALCIUM 10.0 8.8 - 10.0 mg/dL 11/16/2018 5:56 PM [facility] T BILI 0.6 0.0 - 1.0 mg/dL 11/16/2018 5:56 PM T [facility] SGOT (AST) 17 0 - 37 U/L 11/16/2018 5:56 PM [facility] SGPT (ALT) 27 12 - 45 U/L 11/16/2018 5:56 PM [facility] ALKALINE PHOSPHATASE 89 39 - 117 U/L 11/16/2018 5:56 PM [facility] GFR, EST. NONAFRICAN 48 11/16/2018 5:56 PM [facility] Comment: Reference interval for MDRD GFR: GFR >=60: Satisfactory kidney function GFR <60: Chronic kidney disease GFR <15: Kidney failure Estimated GFR may be less reliable in patients >70yr, women, patients with serious comorbid conditions, or patients with extremes of body size, muscle mass, or nutritional status. Revised 11/18/07 (National Kidney Disease Education Program) GFR, EST. 57(L) >=60 019 5:56 PM [facility] Comment: Reference interval for MDRD GFR: GFR [...] 4:42 PM CDT 11/16/2018 4:51 PM CDT [facility] - 11/16/2018 5:56 PM CDT Venipuncture should occur prior to sulfasalazine and/or sulfapyridine administration due to the potential for falsely depressed results for ALT and AST. Glucose can be falsely depressed after administration of sulfasalazine, and falsely elevated with administration of sulfapyridine. us Yue Campos MD CHEMISTRY ORDERABLES Final Result [facility] [address] [place] [address] * JAME SCREENING BILATERAL DIGITAL W CAD (03/25/2017 9:51 AM CDT) Anatomical Region Laterality Modality breast Bilateral Mammography 03/25/2017 9:54 AM CDT Impressions 03/25/2017 9:54 AM CDT ASSESSMENT: BI-RADS 2; BENIGN RECOMMENDATIONS: Yearly screening mammogram in 1 year. CAD used DICTATION LOCATION: [facility] Signed By: Danielito Emanuel M.D. Narrative 03/25/2017 [...] bilateral NMA SCR MAMMO DDI performed at [facility]. The breast tissue is average. No significant changes when compared with prior studies. Finding: Calcifications Laterality: bilateral Description: There are typically benign punctate, rim, round calcifications. Distribution is diffuse/scattered. us Yousuf Calixto MD IMG MAMMO ORDERABLES Final Resul t * (ABNORMAL) HBA1C, EST GLUCOSE (07/31/2009 9:00 AM EXCAVATING MACHINE OPERATOR) HGB-A1C 6.5(H) 4.0 - 6.0 % [facility] Est Average Glucose 139.9 MG/DL [facility] 07/31/2009 9:00 AM EXCAVATING MACHINE OPERATOR 07/31/2009 7:45 PM EXCAVATING MACHINE OPERATOR us Alpesh Tay DO CHEMISTRY ORDERABLES Final Res ult [facility] [address] [place] [address] from Last 3 Months or Most Recently Relevant to Health Maintenance Insurance [employer] [facility] BENEFITS MEDICARE Advance Directives * Full Code (Latest Code Status on File) Date Activated Date Inactivated Comments 11/16/2018 4:35 PM 11/17/2018 8:40 PM CPR-Full Josef atment: FULL ARREST: Attempt Resuscitation/CPR wit intubation and mechanical ventilation. PRE-ARREST: Use entire range of life support measures to stabilize the patient. Care Teams Esl Professor Relationship Specialty Start Date End Date Yousuf Calixto MD [address] [place] [address] PCP - General Family Medicine 05/18/15
--- OUTSIDE RECORDS SUMMARY | 2024-11-11 09:09 | XMS_ITS | Data Portability ---
Author Organization [facility], [address] ([place]) Address [address] [place] [address] Care Team Providers Care Gas Derrick Operator Name Role Phone TOMEKA SAMUELS Primary Care Provider BRE OG Front Desk Host NELLY ANNE Front Desk Host Assessment Encounter Date Assessment Date Assessment LastModified [...] and phosphorus levels are within normal range Anemia of chronic disease Hemoglobin is stable with [...] and phosphorus levels are within normal range Anemia of chronic disease Hemoglobin is stable with [...] and phosphorus levels are within normal range Anemia of chronic disease Hemoglobin is stable with [...] Organization Details Last Modified Time Details Appointments None record ed. Lab None record ed. Referral None record ed. Procedures None record ed. Surgeries None record ed. Imaging None record ed. Medication Orders None record ed. Patient TargetsNo targets recorded. Patient InstructionsNo instructions recorded. Reason for Referral None Reported. Results Created Date Observation Date Name Description Value Unit Range Abnormal Flag Note LastModifiedBy Organization Detail LastModifiedTime Result Notes None recorded. Problems Name Problem SNOMED Code Status Onset Date Resolution Date Notes Provider Name and Address Organization Details Recorded Time Chronic kidney disease stage 3 601174324 Active 2023 [facility] 4 10:01:01 Type 2 diabetes mellitus 66579072 Active 2023 [facility] 4 10:01:10 Benign essential hypertension 0610819 Active 2023 [facility] 4 10:01:19 Proteinuria 40988844 Active 2023 [facility] 4 10:01:31 Edema 855450565 Active 2023 [facility] 4 10:01:41 Hypokalemia 45196757 Active 2023 [facility] 4 10:01:57 Problem Notes None recorded. Medical Equipment None Reported. Allergies Allergen ID Allergen Name Allergen Category Reaction Reaction Severity Criticality Documentation Date Start Date Code Code System Note Provider Name and Address Organization Details Recorded Time 3421702 albuterol medicatio n Not available Not available Not available 11/01/20242015 435 RxNorm unrec ogniz ed react ion (text : Jaren green, code: 20408 3000) (from exter nal sourc e) Not Available Not Available Not Available 4948992 dapaglifl ozin propanedi ol medicatio n rash swelling Not available Not available low 11/01/20242022 50941 66 RxNorm Not Available Not Available Not Available Medications Name Sig Start Date Stop Date [...] No t Available furosemide 20 mg tablet TAKE 1 TABLET BY MOUTH DAILY NEEDED active Not Available Not Available No t Available metoprolol succinate ER 25 mg tablet,exte [...] Not Available Not Available No t Available Mounjaro 5 mg/0.5 mL subcutaneou s pen injector ADMINISTE R 5 MG UNDER THE SKIN 1 TIME WEEKLY active Not Available Not Available No t Available Mounjaro 2.5 mg/0.5 mL subcutaneou s pen injector ADMINISTE R 2.5 MG UNDER THE SKIN 1 TIME WEEKLY FOR 4 WEEKS active Not Available Not Available No t Available FreeStyle Ida 3 Sensor device CHANGE SENSOR EVERY 14 DAYS active Not Available Not Available No t Available FreeStyle Ida 3 [place] USE DIRECTED 06/10 completed Not Available Not Available Not Available Vitals Date Recorded Body height Heart rate Systolic blood pressure Diastolic blood pressure Provider Name and Address Organization Details Last Updated DateTime 02/12/2024 165.1 cm 80 /min 112 mm[Hg] 70 mm[Hg] [facility] 02/12/2024 14:22:53 Date Recorded Body height Body mass index (BMI) Body weight Heart rate Oxygen saturation Oxygen saturation in Arterial blood by Pulse oximetry Systolic blood pressure Diastolic blood pressure Provider Name and Address Organization Details Last Updated DateTime 165.1 cm 50.9 kg/m2 686652. 27 g 98 /min 94 % 94 % 140 mm[Hg] 86 mm[Hg] [facility] 13:55:51 Date Recorded Body height Heart rate Systolic blood pressure Diastolic blood pressure Provider Name and Address Organization Details Last Updated DateTime 07/08/2024 165.1 cm 102 /min 114 mm[Hg] 62 mm[Hg] [facility] 07/08/2024 15:27:50 Social History None recorded. Functional Status None recorded. Mental Status None recorded. Family History Nothing Reported. Medical History No medical history recorded. Gynecological HistoryNo gynecological history recorded. Obstetrics History GPAL:G 0 P 0 0 0 0 Past Encounters Encounter ID Performer Location Encounter Start Date Encounter Closed Date Diagnosis/Indication Diagnosis SNOMED-CT Code Diagnosis ICD10 Code Diagnosis Note [id number] Bre Og PA-C [facility] ([place]) [address] [place] [address] [place] [address] 02/12/2024 13:46:49 02/12/2024 14:45:04 Chronic kidney disease stage 3 030330757 N18.30 Benign ess ential hypertension 1491200 I10 Edema 432695407 R60.9 Hypokalemia 69190605 E87 .6 Proteinuria 66896750 R80 .9 Type 2 elise betes mellitus 72627723 E11.21 [id number] Nelly Anne MD [facility] ([place]) [address] [place] [address] [place] [address] 06/10/2024 13:49:15 06/10/2024 14:36:26 Chronic kidney disease stage 3 072649963 N18.30 Benign ess ential hypertension 8332734 I10 Edema 374862158 R60.9 Hypokalemia 27558665 E87 .6 Proteinuria 40570467 R80 .9 Type 2 elise betes mellitus 05564187 E11.21 [id number] Bre Og PA-C [facility] ([place]) [address] [place] [address] [place] [address] 07/08/2024 15:04:10 07/08/2024 16:05:49 Chronic kidney disease stage 3 820578772 N18.30 CBC, renal function panel, urine microalbum in/creatin ine ratio prior to next appointmen tfollow up in 2-4 wks Benign ess ential hypertension 9324959 I10 Edema 632462825 R60.9 Hypokalemia 49134798 E87 .6 Proteinuria 57279833 R80 .9 Type 2 elise betes mellitus 56719622 E11.21 Health Concerns Section Related Observation LastModified by Organization Detai ls LastModified Time None Recorded Concern Status LastModified by Organization Details LastModified Time None Recorded Advance Directives Directive None Recorded Payers Encounter Date Sequence Insurance Name Policy Number Policy Gómez Covered Member ID Gómez Member ID Guarantor Name 02/12/2024 1 [place] Kiah Del Cid [id number] 9 Kiah Bahenaptirina 06/10/2024 1 [place] Kiah Del Cid [id number] Kiah Del Cid 07/08/2024 1 [place] Kiah Del Cid [id number] Kiah Del Cid Notes Date Note Type Note Provider Name [...] worsening knee pain. Bre Og PA-C [address], [address], [facility] 02/12/2024 15:35:07 06/10/2024 text/html Ms. Del Cid [...] 10 systolic. Nelly Anne MD [address] [place] [address], [phone], [facility] 06/10/2024 14:27:27 07/08/2024 text/html Ms. Del Cid [...] to her son who lives down in [place]. Bre Og PA-C [address] [place] [address], [phone], [facility] 07/08/2024 17:16:27 OBGyn Episode No OBEpisode recorded.
--- OUTSIDE RECORDS SUMMARY | 2024-11-11 09:09 | XMS_ITS | Clinical Summary ---
Author Organization [facility] Address [address] [place] [address] Care Team Providers Care Benzene Washer Name Role Phone Angel Escamilla MD Primary Care Provider [phone] Allergies Active Allergy Reactions Criticality Noted Date Comments Albuterol Shakiness 02/02/2016 Dapagliflozin Rash,Swelling Low 05/15/2023 Medications verapamil SR 180 MG tablet Take 1 tablet (180 mg total) by mouth daily. 0 Active potassium chloride CR 10 MEQ tablet Take 1 tablet (10 mEq total) by mouth every other day. 0 Active metoprolol succinate ER 25 MG 24 hr tablet Take 1 tablet (25 mg total) by mouth daily. 0 Active losartan-hydroC HLOROthiazide 100-25 MG tablet Take 1 tablet by mouth daily. 0 Active levothyroxine 125 MCG tablet Take 1 tablet (125 mcg total) by mouth daily. 0 Active glipiZIDE 5 MG tablet Take 3 tablets (15 mg total) by mouth 2 (two) times daily. 0 Active atorvastatin (LIPITOR) 10 MG tablet Take 1 tablet (10 mg total) by mouth daily. 3 Active KERENDIA 10 MG Tab daily. 2 Active FLOVENT HFA 220 MCG/ACT inhaler Inhale 2 puffs into the lungs 2 (two) times daily. 4 Active Fluticasone Furoate 50 MCG/ACT AEROSOL POWDER, BREATH ACTIVATED 0 Active Continuous Blood Gluc Sensor (FREESTYLE JUJU 14 DAY SENSOR) Misc CHANGE EVERY 14 DAYS 4 Active fluticasone propionate (FLONASE) 50 MCG/ACT nasal spray 1 spray by Each Nostril route 2 (two) times daily. 4 Active furosemide (LASIX) 20 MG tablet Take 1 tablet (20 mg total) by mouth daily as needed. Active MOUNJARO 2.5 MG/0.5ML injection ADMINISTER 2.5 MG UNDER THE SKIN 1 TIME WEEKLY FOR 4 WEEKS Active predniSONE (DELTASONE) 20 MG tablet Take 2 tablets (40 mg total) by mouth daily for 4 days. 8 tablet 11/10/19 25 Encounters Date Type Department Care Team Description 11/05/2024 5:24 PM CDT - 11/05/2024 8:01 PM CDT Emergency [facility] [address] [place] [address] Nazia Damon MD Cough Discharge Disposition: Home or Self Care (Routine Discharge) 11/05/2024 Travel from Last 3 Months Family History Medical History Relation Comments Breast [...] Information Value Date Recorded Sex Assigned at Female 11/05/2024 5:42 PM CDT Legal Sex Female 7:17 PM CDT Gender Identity Not on file Sexual Orientation Not on file Last Filed Vital Signs Vital Sign Reading Time Taken Comments Blood Pressure 125/73 11/05/2024 7:50 PM CDT Pulse 109 11/05/2024 5:36 PM CDT Temperature 35.9 C (96.6 F) 11/05/2024 5:36 PM CDT Respiratory Rate 18 11/05/2024 5:36 PM CDT Oxygen Saturation 98% 11/05/2024 7:50 PM CDT Inhaled Oxygen Concentration - - Weight 131.1 kg (289 lb) 11/05/2024 5:36 PM CDT Height 157.5 cm (5' 2 ) 11/05/2024 5:36 PM CDT Body Mass Index 52.86 11/05/2024 5:36 PM CDT Plan of Treatment Health Maintenance [...] Procedure Name Priority Date/Time Associated Diagnosis Comments CTA CHEST PE PROTOCOL STAT 11/05/2024 7:21 PM CDT ECG 12-LEAD Routine 11/05/2024 6:32 PM CDT PRO-BRAIN NATRIURETIC PEPTIDE STAT 11/05/2024 6:15 PM CDT LACTIC ACID W REFLEX (SEPSIS) STAT 11/05/2024 6:15 PM CDT TROPONIN, QUANT STAT 11/05/2024 6:15 PM CDT COMPREHENSIVE METABOLIC PANEL STAT 11/05/2024 6:15 PM CDT CBC W/DIFF AUTOMATED STAT 11/05/2024 6:15 PM CDT CULTURE, BACTERIA, BLOOD Routine 11/05/2024 6:14 PM CDT CULTURE, BACTERIA, BLOOD Routine 11/05/2024 6:03 PM CDT CORONAVIRUS (COVID-19) ANTIGEN STAT 11/05/2024 6:00 PM CDT INFLUENZA A & B STAT 11/05/2024 6:00 PM CDT MG SCREENING W JASPREET ADEEL DIGI Routine 01/15/2024 1:17 PM CDT Visit for screening mammogram ENDOSCOPY (SCAN ORDER) 6:38 AM SPORTS BOOKMAKER COLONOSCOPY 05/20/2023 6:46 AM CDT from Last 3 Months or Most Recently Relevant to Health Maintenance Results * CTA CHEST PE PROTOCOL (11/05/2024 7:21 PM CDT) Anatomical Region Laterality Modality Chest Computed Tomogra phy 11/05/2024 7:33 PM CDT Impressions 11/05/2024 7:46 PM CDT IMPRESSION: 1. No evidence of pulmonary thromboembolic disease. 2. No acute findings. Referred By: Interpreted By: Felix Villa DO, 11/05/2024 7:33 PM Narrative 11/05/2024 7:46 PM CDT [place] [id number] [place] [address] EXAMINATION: CTA chest pulmonary embolism HISTORY: Hemoptysis. Tachycardia. Shortness of breath. Concern for pulmonary embolus. COMPARISON: Chest x-ray 04/04/2022. TECHNIQUE: Axial CT images of the chest after the uneventful intravenous administration of 94 mL of Isovue-370 given through the left antecubital fossa. Sagittal and coronal reformatted image sets with thick section reformatted post processed 3-D/MIP images according to the pulmonary embolus protocol. A dose lowering technique was used for this procedure, which may include, but is not limited to, dose reduction technique, automated exposure control, the use of degenerative reconstruction, and ALARA/image gently techniques. FINDINGS: Vascular: The pulmonary arteries are well opacified. The main pulmonary artery is normal caliber. No evidence of pulmonary thromboembolic disease. No evidence of right heart strain. There is atherosclerotic calcification of the aorta. There are coronary artery calcifications. Chest: The heart is normally sized. No pericardial effusion. No evidence of mediastinal or hilar lymphadenopathy. There are benign calcified lymph nodes. No evidence of pneumomediastinum. There is no axillary lymphadenopathy. No acute appearing extrathoracic soft tissue abnormalities. There is dependent atelectasis within the lungs bilaterally. No evidence of pneumonia, pleural effusion, or pneumothorax. No bronchial dilatation or mucous plugging. No visible acute findings. Upper abdomen: The partially included portions of the upper abdomen are negative for acute appearing abnormality. There are benign calcified splenic granulomas. Osseous: There are multilevel degenerative changes throughout the spine. No acute osseous abnormalities are identified. Procedure Note Felix Villa, - 11/05/2024 [place] [id number] [place] [address] EXAMINATION: CTA chest pulmonary embolism HISTORY: Hemoptysis. Tachycardia. Shortness of breath. Concern for pulmonaryembolus. COMPARISON: Chest x-ray 04/04/2022. TECHNIQUE: Axial CT images of the chest after the uneventful intravenousadministration of 94 mL of Isovue-370 given through the left antecubitalfossa. Sagittal and coronal reformatted image sets with thick sectionreformatted post processed 3-D/MIP images according to the pulmonaryembolus protocol. A dose lowering technique was used for this procedure, which may include,but is not limited to, dose reduction technique, automated exposurecontrol, the use of degenerative reconstruction, and ALARA/image gentlytechniques. FINDINGS: Vascular: The pulmonary arteries are well opacified. The main pulmonaryartery is normal caliber. No evidence of pulmonary thromboembolicdisease. No evidence of right heart strain. There is atheroscleroticcalcification of the aorta. There are coronary artery calcifications. Chest: The heart is normally sized. No pericardial effusion. No evidenceof mediastinal or hilar lymphadenopathy. There are benign calcified lymphnodes. No evidence of pneumomediastinum. There is no axillarylymphadenopathy. No acute appearing extrathoracic soft tissueabnormalities. There is dependent atelectasis within the lungs bilaterally. No evidenceof pneumonia, pleural effusion, or pneumothorax. No bronchial dilatationor mucous plugging. No visible acute findings. Upper abdomen: The partially included portions of the upper abdomen arenegative for acute appearing abnormality. There are benign calcifiedsplenic granulomas. Osseous: There are multilevel degenerative changes throughout the spine.No acute osseous abnormalities are identified. IMPRESSION: 1. No evidence of pulmonary thromboembolic disease. 2. No acute findings. Referred By: Interpreted By: Felix Villa DO, 11/05/2024 7:33 PM us Nazia Damon MD CT Final Resul t * ECG 12 lead (11/05/2024 6:32 PM CDT) 11/05/2024 6:32 PM CDT Narrative [facility] - 11/05/2024 7:48 PM CDT [address] [place] [address] Test Date: 2024-11-05 Pat Name: KIAH DEL CID Department: 3 Room: EXAM 505 Gender: Female Hospice Clinical Marketer: : 1950 Requested By: NAZIA DAMON Order Number: [id number] Reading MD: Chalino Walker Measurements Intervals Jansen Rate: 98 P: -18 RI: 134 QRS: 37 QRSD: 74 T: 58 QT: 323 QTc: 413 Interpretive Statements SINUS RHYTHM LOW QRS VOLTAGE IN PRECORDIAL LEADS delayed r-wave progression Procedure Note Chalino Walker MD - 11/05/[address] [place] [id number] Test Date: 2024-11-05 Pat Name: KIAH DEL CID Department: 3 Room: EXAM 505 Gender: Female Hospice Clinical Marketer: : 1950 Requested By: NAZIA DAMON Order Number: [id number] Reading MD: Chalino Walker Measurements Intervals Jansen Rate: 98 P: -18 RI: 134 QRS: 37 QRSD: 74 T: 58 QT: 323 QTc: 413 Interpretive Statements SINUS RHYTHM LOW QRS VOLTAGE IN PRECORDIAL LEADS delayed r-wave progression Nazia Damon MD ECG ORDERABLES Final Resul t Performing Organization Address [facility] de Phone Number [facility] * LACTIC ACID W REFLEX (SEPSIS) (11/05/2024 6:15 PM CDT) LACTIC ACID VENOUS 1.4 0.4 - 2.0 MMOL/L 11/05/2024 6:47 PM CDT [facility] 11/05/2024 6:15 PM CDT Nazia Damon MD LABORATORY Final Resul t Performing Organization Address [facility] de Phone Number [facility] [address] [place] [id number], * PRO-BRAIN NATRIURETIC PEPTIDE (11/05/2024 6:15 PM CDT) PRO-B TYPE NATRIURETIC PEPTIDE 105 <125 PG/ML 11/05/2024 6:48 PM CDT [facility] Comment: CUT POINTS ESTABLISHED BY INTERNATIONAL COLLABORATIVE ON NT PROBNP (ICON) STUDY (2006). AGE INDEPENDENT: <300 PG/ML HAS A 99% NEGATIVE PREDICTIVE VALUE FOR EXCLUDING ACUTE CHF <50 YEARS: >450 PG/ML IS CONSISTENT WITH ACUTE CHF 50-75 YEARS: >900 PG/ML IS CONSISTENT WITH ACUTE CHF >75 YEARS: >1800 PG/ML IS CONSISTENT WITH ACUTE CHF IN PATIENTS WITH RENAL INSUFFICIENCY (GFR <60), >1200 PG/ML YIELDS A DIAGNOSTIC SENSITIVITY AND SPECIFICITY OF 89% AND 72% FOR ACUTE CHF. 11/05/2024 6:15 PM CDT us Nazia Damon MD LABORATORY Final Resul t [facility] [address] [place] [address], * (ABNORMAL) COMPREHENSIVE METABOLIC PANEL (11/05/2024 6:15 PM CDT) SODIUM S/P/B 135(L) 136 - 145 MMOL/L 11/05/2024 6:48 PM CDT [facility] POTASSIUM S/P/B 3.6 3.5 - 5.1 MMOL/L 11/05/2024 6:48 PM CDT [facility] CHLORIDE S/P/B 100 98 - 107 MMOL/L 11/05/2024 6:48 PM CDT [facility] CO2 24.6 21.0 - 32.0 MMOL/L 11/05/2024 6:48 PM CDT [facility] GLUCOSE 120(H) 70 - 99 MG/DL 11/05/2024 6:48 PM CDT [facility] Comment: FASTING GLUCOSE 100 TO 125 MG/DL IS CONSISTENT WITH IMPAIRED FASTING GLUCOSE. FASTING GLUCOSE >125 MG/DL IS CONSISTENT WITH DIABETES. RANDOM GLUCOSE >200 MG/DL WITH HYPERGLYCEMIC SYMPTOMS IS CONSISTENT WITH DIABETES. PER ADA GUIDELINES BUN 24 6 - 24 MG/DL 11/05/2024 6:48 PM CDT [facility] CREATININE S/P/B 1.60(H) 0.55 - 1.02 MG/DL 11/05/2024 6:48 PM CDT [facility] CALCIUM S/P/B 10.4 8.4 - 10.5 MG/DL 11/05/2024 6:48 PM CDT [facility] BILIRUBIN TOTAL S/P/B 0.8 0.2 - 1.0 MG/DL 11/05/2024 6:48 PM CDT [facility] Comment: THIS ASSAY IS NOT RECOMMENDED FOR PATIENTS UNDERGOING TREATMENT WITH ELTROMBOPAG DUE TO THE POTENTIAL FOR FALSELY ELEVATED RESULTS. ALKALINE PHOSPHATASE S/P/B 93 55 - 142 U/L 11/05/2024 6:48 PM CDT [facility] AST 17 15 - 37 U/L 11/05/2024 6:48 PM CDT [facility] ALT 22 14 - 59 U/L 11/05/2024 6:48 PM CDT [facility] TOTAL PROTEIN S/P/B 7.4 6.4 - 8.2 G/DL 11/05/2024 6:48 PM CDT [facility] ALBUMIN S/P/B 3.5 3.4 - 5.0 G/DL 11/05/2024 6:48 PM CDT [facility] ANION GAP 10.4 5.0 - 15.0 MMOL/L 11/05/2024 6:48 PM CDT [facility] OSMOLALITY (CALC) 285 MOSM/KG 025 6:48 PM CDT [facility] Comment:REFERENCE RANGE NOT ESTABLISHED GFR ESTIMATE 34(L) >89 ML/MIN/1. 73 M2 11/05/2024 6:48 PM CDT [facility] GFR NOTES GFR REFERENCE S: 11/05/2024 6:48 PM CDT [facility] Comment: THE ESTIMATED GFR IS CALCULATED USING THE 2020 CKD-EPI EQUATION. THE FOLLOWING CATEGORIES FOR GRADING RENAL FUNCTION ARE RECOMMENDED BY THE INTERNATIONAL SOCIETY OF NEPHROLOGY (KDIGO 2012 CLINICAL PRACTICE GUIDELINE). G1,NORMAL OR HIGH: >89 ml/min/1.73 m2 G2,MILDLY DECREASED: 60-89 ml/min/1.73 m2 G3A,MILDLY TO MODERATELY DECREASED: 45-59 ml/min/1.73 m2 G3B,MODERATELY TO SEVERELY DECREASED: 30-44 ml/min/1.73 m2 G4,SEVERELY DECREASED: 15-29 ml/min/1.73 m2 G5,KIDNEY FAILURE: <15 ml/min/1.73 m2 11/05/2024 6:15 PM CDT us Nazia Damon MD LABORATORY Final Resul t [facility] [address] [place] [address], * CBC W/DIFF AUTOMATED (11/05/2024 6:15 PM CDT) WBC 6.30 4.00 - 10.80 x10'3/uL 11/05/2024 6:25 PM CDT [facility] RBC 4.59 4.10 - 5.40 x10'6/uL 11/05/2024 6:25 PM CDT [facility] HGB 13.5 12.0 - 16.0 G/DL 11/05/2024 6:25 PM CDT [facility] HCT 38.5 36.0 - 47.0 % 11/05/2024 6:25 PM CDT [facility] MCV 83.9 78.0 - 100.0 FL 11/05/2024 6:25 PM CDT [facility] MCH 29.4 27.0 - 31.0 PG 11/05/2024 6:25 PM CDT [facility] MCHC 35.1 33.0 - 36.0 G/DL 11/05/2024 6:25 PM CDT [facility] RDW 13.9 11.5 - 14.5 % 11/05/2024 6:25 PM CDT [facility] PLT 192 150 - 350 x10'3/uL 11/05/2024 6:25 PM CDT [facility] MPV 10.0 7.4 - 10.4 FL 11/05/2024 6:25 PM CDT [facility] CBC COMMENT NORMAL REFERENCE RANGE NOT ESTABLISHED FOR THE PROPORTIONAL LEUKOCYTE DIFFERENTIAL. 11/05/2024 6:25 PM CDT [facility] NEUTROPHILS % 53.3 % 11/05/2024 6:25 PM CDT [facility] LYMPHOCYTES % 26.3 % 11/05/2024 6:25 PM CDT [facility] MONOCYTES % 17.5 % 11/05/2024 6:25 PM CDT [facility] EOSINOPHILS % 1.7 % 11/05/2024 6:25 PM CDT [facility] BASOPHILS % 1.0 % 11/05/2024 6:25 PM CDT [facility] IMMATURE GRANS % 0.2 % 11/06/19 6:25 PM CDT [facility] NRBC % 0.0 % 11/05/2024 6:25 PM CDT [facility] ABS. NEUTROPHILS 3.36 1.60 - 8.30 x10'3/uL 11/05/2024 6:25 PM CDT [facility] ABS. LYMPHOCYTES 1.66 0.80 - 4.70 x10'3/uL 11/05/2024 6:25 PM CDT [facility] ABS. MONOCYTES 1.10 0.00 - 1.50 x10'3/uL 11/05/2024 6:25 PM CDT [facility] ABS. EOSINOPHILS 0.11 0.00 - 0.40 x10'3/uL 11/05/2024 6:25 PM CDT [facility] ABS. BASOPHILS 0.06 0.00 - 0.20 x10'3/uL 11/05/2024 6:25 PM CDT [facility] ABS. IMMATURE GRANULOCYTES 0.01 0.00 - 0.03 x10'3/uL 11/05/2024 6:25 PM CDT [facility] ABS. NUCLEATED RBC'S 0.00 0.00 - 0.01 x10'3/uL 11/05/2024 6:25 PM CDT [facility] 11/05/2024 6:15 PM CDT us Nazia Damon MD LABORATORY Final Resul t [facility] [address] [place] [address], * TROPONIN, QUANT (11/05/2024 6:15 PM CDT) Pathologist [facility] TROPONIN I HIGH SENSITIVITY 12 0 - 51 ng/L 11/05/2024 6:48 PM CDT [facility] 11/05/2024 6:15 PM CDT Nazia Damon MD LABORATORY Final Resul t Performing Organization Address City/[facility]/ZIP Co de Phone Number [facility] [address] [place] [address], * CORONAVIRUS (COVID-19) ANTIGEN (11/05/2024 6:00 PM CDT) [facility] CORONAVIRUS ANTIGEN IA NEGATIVE NEGATIVE 11/05/2024 6:36 PM CDT [facility] Comment: NEGATIVE RESULTS DO NOT RULE OUT SARS-COV-2 INFECTION AND SHOULD NOT BE USED THE SOLE BASIS FOR TREATMENT OR PATIENT MANAGEMENT DECISIONS, INCLUDING INFECTION CONTROL DECISIONS. NEGATIVE RESULTS SHOULD BE CONSIDERED IN THE CONTEXT OF A PATIENT'S RECENT EXPOSURES, HISTORY AND THE PRESENCE OF CLINICAL SIGNS AND SYMPTOMS CONSISTENT WITH COVID 19. THIS TEST HAS BEEN AUTHORIZED BY THE FDA UNDER AN EMERGENCY USE AUTHORIZATION (EUA) FOR USE BY AUTHORIZED LABORATORIES. SPECIMEN TYPE NASAL 11/05/2024 6:05 PM CDT [facility] NASAL NASAL STRUCTURE / Unknown 11/05/2024 6:00 PM CDT Nazia Damon MD MICROBIOLOGY - GENERAL ORDE [facility] Final Result [facility] [address] [place] [address], * INFLUENZA A & B (11/05/2024 6:00 PM CDT) [facility] SPECIMEN TYPE (INFLUENZA) NASOPHARYNGEAL SWAB 11/05/2024 6:05 PM CDT [facility] INFLUENZA A NEGATIVE NEGATIVE 11/05/2024 6:36 PM CDT [facility] INFLUENZA B NEGATIVE NEGATIVE 11/05/2024 6:36 PM CDT [facility] Comment: A NEGATIVE RESULT DOES NOT EXCLUDE INFLUENZA VIRUS INFECTION. IF INFLUENZA IS CIRCULATING IN YOUR COMMUNITY, A DIAGNOSIS OF INFLUENZA SHOULD BE CONSIDERED BASED ON A PATIENT'S CLINICAL PRESENTATION AND EMPIRIC ANTIVIRAL TREATMENT SHOULD BE CONSIDERED IF INDICATED. NASOPHARYNGEAL SWAB / Unknown 11/05/2024 6:00 PM CDT Nazia Damon MD MICROBIOLOGY - GENERAL [place] Final Result [facility] [address] [place] [address], * MG SCREENING W JASPREET ADEEL DIGI [...] followup in one year would seem adequate. us Nilda Boswell APNP MAMMO Final Resu lt * ENDOSCOPY (SCAN ORDER) (10/10/2023 6:38 AM SPORTS BOOKMAKER) Simone Solomon MD SCANNING Final Result * Colonoscopy (05/20/2023 6:46 AM CDT) Simone Solomon MD GI PROCEDURE ORDERABLES Final Result from Last 3 Months or Most Recently Relevant to Health Maintenance Insurance MEDICARE [facility] Care Teams Benzene Washer Relationship Specialty Start Date End Date Angel Escamilla MD [address] [place] [address] PCP - General FAMILY PRACTICE 11/05/24
== END 2024-11-11 08:53 | disposition home or self-care (01) ==
LOC: CHSIMG 08:53
PROVIDERS: PCP Family Medicine; Visit Provider Family Medicine
DX: J40 Bronchitis, not specified as acute or chronic (principal)
CPT/HCPCS: 71046

== ENCOUNTER 2024-11-26 11:20 | Outpatient (CLI) | payer MEDICARE, SELFPAY ==
[2024-11-26 11:41] LABS: Basophils Absolute Auto 0.08 K/mm3 (0.00-0.10); Basophils Percent Auto 1.2 % (0.0-1.0); Eosinophils Absolute Auto 0.18 K/mm3 (0.02-0.50); Eosinophils Percent Auto 2.7 % (1.0-6.0); Hematocrit 42.1 % (35.0-42.0); Hemoglobin 14.1 g/dL (11.7-13.8); Immature Granulocyte Absolute 0.04 K/mm3 (0.00-0.00); Immature Granulocyte Percent A 0.6 % (0.0-0.0); Lymphocytes Absolute Auto 2.18 K/mm3 (1.10-4.50); Lymphocytes Percent Auto 32.2 % (18.0-42.0); Mean Corpuscular HGB Conc 33.5 g/dL (32-36); Mean Corpuscular Hemoglobin 29.3 pg (27.0-31.0); Mean Corpuscular Volume 87.5 fL (78.0-102.0); Mean Platelet Volume 9.7 fl (9.2-11.8); Monocytes Absolute Auto 0.73 K/mm3 (0.10-0.90); Monocytes Percent Auto 10.8 % (2.0-11.0); Neutrophils Absolute Auto 3.55 K/mm3 (1.70-7.20); Neutrophils Percent Auto 52.5 % (50.0-70.0); Platelet Count Result 219 K/mm3 (150-420); Red Blood Count 4.81 M/mm3 (4.20-5.40); Red Cell Distribution Width 14.8 % (11.6-14.4); White Blood Count 6.8 K/mm3 (4.8-10.8)
[2024-11-26 11:46] LABS: Creatinine Urine 82.65 mg/dL (40-278); Total Protein Urine Random 12.2 mg/dL (0.0-11.9); Ur Ttl Prot Creatinine Ratio 0.15 mg/mg (0-0.20)
--- OUTSIDE RECORDS SUMMARY | 2024-11-26 11:47 | XMS_ITS | Clinical Summary ---
Author Organization [facility] Address [address] [place] [address] Care Team Providers Care Legal Executive Assistant Name Role Phone Angel Escamilla MD Primary Care Provider [phone] Allergies Active Allergy Reactions Criticality Noted Date [...] CDT - 11/05/2024 8:01 PM CDT Emergency [facility] [address] [place] [address] Nazia Newsome MD Cough Discharge Disposition: Home or Self [...] 05/09/2016 COVID-19 Vaccine (1 - season) 2024 Mammogram Screening 01/14/2026 01/15/2024, 11/19/2022, 06/07/2020, Additional [...] screening mammogram ENDOSCOPY (SCAN ORDER) 6:38 AM AFTERSCHOOL BABYSITTER COLONOSCOPY 05/20/2023 6:46 AM CDT from Last [...] 7:33 PM Narrative 11/05/2024 7:46 PM CDT [address] [place] [address] EXAMINATION: CTA chest pulmonary embolism HISTORY: Hemoptysis. [...] osseous abnormalities are identified. Procedure Note Felix Villa DO - 11/05/2024 [place] [id number] [place] [address] EXAMINATION: CTA chest pulmonary embolism HISTORY: Hemoptysis. [...] Villa DO, 11/05/2024 7:33 PM us Nazia Newsome MD CT Final Resul t * ECG 12 lead (11/05/2024 6:32 PM CDT) 11/05/2024 6:32 PM CDT Narrative [facility] - 11/05/2024 7:48 PM CDT [address] [place] [address] Test Date: 2024-11-05 Pat Name: KIAH DEL CID Department: 3 Room: EXAM 505 Gender: Female Mixer Driver: : 1950 Requested By: NAZIA NEWSOME Order Number: [id number] Reading MD: Chalino Walker Measurements Intervals Pegram Rate: 98 P: -18 SC: 134 QRS: 37 QRSD: 74 T: 58 QT: 323 QTc: 413 Interpretive Statements SINUS RHYTHM LOW QRS VOLTAGE IN PRECORDIAL LEADS delayed r-wave progression Procedure Note Chalino Walker MD - 11/05/[address] [place] [id number] Test Date: 2024-11-05 Pat Name: KIAH DEL CID Department: 3 Room: EXAM 505 Gender: Female Mixer Driver: : 1950 Requested By: NAZIA NEWSOME Order Number: [id number] Reading MD: Chalino Walker Measurements Intervals Pegram Rate: 98 P: -18 SC: 134 QRS: 37 QRSD: 74 T: 58 QT: 323 QTc: 413 Interpretive Statements SINUS RHYTHM LOW QRS VOLTAGE IN PRECORDIAL LEADS delayed r-wave progression us Nazia Newsome MD ECG ORDERABLES Final Resul t Performing Organization Address [facility] de Phone Number [facility] * LACTIC ACID W REFLEX (SEPSIS) (11/05/2024 6:15 PM CDT) LACTIC ACID VENOUS 1.4 0.4 - 2.0 MMOL/L 11/05/2024 6:47 PM CDT [facility] 11/05/2024 6:15 PM CDT us Nazia Newsome MD LABORATORY Final Resul t Performing Organization Address [facility] de Phone Number [facility] [address] [place] [address], * PRO-BRAIN NATRIURETIC PEPTIDE (11/05/2024 6:15 PM CDT) PRO-B TYPE NATRIURETIC PEPTIDE 105 <125 PG/ML 11/05/2024 6:48 PM CDT [facility] Comment: CUT POINTS ESTABLISHED BY INTERNATIONAL [...] CHF. 11/05/2024 6:15 PM CDT us Nazia Newsome MD LABORATORY Final Resul t [facility] [address] [place] [address], * (ABNORMAL) COMPREHENSIVE METABOLIC PANEL (11/05/2024 6:15 PM CDT) SODIUM S/P/B 135(L) 136 - 145 MMOL/L 11/05/2024 6:48 PM CDT [facility] POTASSIUM S/P/B 3.6 3.5 - 5.1 MMOL/L 11/05/2024 6:48 PM CDT [facility] CHLORIDE S/P/B 100 98 - 107 MMOL/L 11/05/2024 6:48 PM CDT [facility] CO2 24.6 21.0 - 32.0 MMOL/L 11/05/2024 6:48 PM CDT [facility] GLUCOSE 120(H) 70 - 99 MG/DL 11/05/2024 6:48 PM CDT [facility] Comment: FASTING GLUCOSE 100 TO 125 MG/DL IS CONSISTENT WITH IMPAIRED FASTING GLUCOSE. FASTING GLUCOSE >125 MG/DL IS CONSISTENT WITH DIABETES. RANDOM GLUCOSE >200 MG/DL WITH HYPERGLYCEMIC SYMPTOMS IS CONSISTENT WITH DIABETES. PER ADA GUIDELINES BUN 24 6 - 24 MG/DL 11/05/2024 6:48 PM CDT [facility] CREATININE S/P/B 1.60(H) 0.55 - 1.02 MG/DL 11/05/2024 6:48 PM CDT [facility] CALCIUM S/P/B 10.4 8.4 - 10.5 MG/DL 11/05/2024 6:48 PM CDT [facility] BILIRUBIN TOTAL S/P/B 0.8 0.2 - 1.0 MG/DL 11/05/2024 6:48 PM CDT [facility] Comment: THIS ASSAY IS NOT RECOMMENDED FOR PATIENTS UNDERGOING TREATMENT WITH ELTROMBOPAG DUE TO THE POTENTIAL FOR FALSELY ELEVATED RESULTS. ALKALINE PHOSPHATASE S/P/B 93 55 - 142 U/L 11/05/2024 6:48 PM CDT [facility] AST 17 15 - 37 U/L 11/05/2024 6:48 PM CDT [facility] ALT 22 14 - 59 U/L 11/05/2024 6:48 PM T [facility] TOTAL PROTEIN S/P/B 7.4 6.4 - 8.2 G/DL 11/05/2024 6:48 PM T [facility] ALBUMIN S/P/B 3.5 3.4 - 5.0 G/DL 11/05/2024 6:48 PM T [facility] ANION GAP 10.4 5.0 - 15.0 MMOL/L 11/05/2024 6:48 PM T [facility] OSMOLALITY (CALC) 285 MOSM/KG 025 6:48 PM T [facility] Comment:REFERENCE RANGE NOT ESTABLISHED GFR ESTIMATE 34(L) >89 ML/MIN/1. 73 M2 11/05/2024 6:48 PM T [facility] GFR NOTES GFR REFERENCE S: 11/05/2024 6:48 PM T [facility] Comment: THE ESTIMATED GFR IS CALCULATED [...] m2 11/05/2024 6:15 PM CDT us Nazia Newsome MD LABORATORY Final Resul t [facility] [address] [place] [address], * CBC W/DIFF AUTOMATED (11/05/2024 6:15 PM CDT) WBC 6.30 4.00 - 10.80 x10'3/uL 11/05/2024 6:25 PM CDT [facility] RBC 4.59 4.10 - 5.40 x10'6/uL 11/05/2024 6:25 PM CDT [facility] HGB 13.5 12.0 - 16.0 G/DL 11/05/2024 6:25 PM CDT [facility] HCT 38.5 36.0 - 47.0 % 11/05/2024 6:25 PM CDT [facility] MCV 83.9 78.0 - 100.0 FL 11/05/2024 6:25 PM CDT [facility] MCH 29.4 27.0 - 31.0 PG 11/05/2024 6:25 PM CDT [facility] MCHC 35.1 33.0 - 36.0 G/DL 11/05/2024 6:25 PM CDT [facility] RDW 13.9 11.5 - 14.5 % 11/05/2024 6:25 PM CDT [facility] PLT 192 150 - 350 x10'3/uL 11/05/2024 6:25 PM CDT [facility] MPV 10.0 7.4 - 10.4 FL 11/05/2024 6:25 PM CDT [facility] CBC COMMENT NORMAL REFERENCE RANGE NOT ESTABLISHED FOR THE PROPORTIONAL LEUKOCYTE DIFFERENTIAL. 11/05/2024 6:25 PM CDT [facility] NEUTROPHILS % 53.3 % 11/05/2024 6:25 PM CDT [facility] LYMPHOCYTES % 26.3 % 11/05/2024 6:25 PM CDT [facility] MONOCYTES % 17.5 % 11/05/2024 6:25 PM CDT [facility] EOSINOPHILS % 1.7 % 11/05/2024 6:25 PM CDT [facility] BASOPHILS % 1.0 % 11/05/2024 6:25 PM CDT [facility] IMMATURE GRANS % 0.2 % 11/06/19 6:25 PM CDT [facility] NRBC % 0.0 % 11/05/2024 6:25 PM CDT [facility] ABS. NEUTROPHILS 3.36 1.60 - 8.30 x10'3/uL 11/05/2024 6:25 PM CDT [facility] ABS. LYMPHOCYTES 1.66 0.80 - 4.70 x10'3/uL 11/05/2024 6:25 PM CDT [facility] ABS. MONOCYTES 1.10 0.00 - 1.50 x10'3/uL 11/05/2024 6:25 PM CDT [facility] ABS. EOSINOPHILS 0.11 0.00 - 0.40 x10'3/uL 11/05/2024 6:25 PM CDT [facility] ABS. BASOPHILS 0.06 0.00 - 0.20 x10'3/uL 11/05/2024 6:25 PM CDT [facility] ABS. IMMATURE GRANULOCYTES 0.01 0.00 - 0.03 x10'3/uL 11/05/2024 6:25 PM CDT [facility] ABS. NUCLEATED RBC'S 0.00 0.00 - 0.01 x10'3/uL 11/05/2024 6:25 PM CDT [facility] 11/05/2024 6:15 PM CDT us Nazia Newsome MD LABORATORY Final Resul t [facility] [address] [place] [address], * TROPONIN, QUANT (11/05/2024 6:15 PM CDT) [facility] TROPONIN I HIGH SENSITIVITY 12 0 - 51 ng/L 11/05/2024 6:48 PM CDT [facility] 11/05/2024 6:15 PM CDT us Nazia Newsome MD LABORATORY Final Resul t Performing Organization Address [facility] Co de Phone Number [facility] [address] [place] [address], * CULTURE, BACTERIA, BLOOD (11/05/2024 6:14 PM CDT) Only the most recent of2 resultswithin the time period is included. [facility] SPEC DESCRIPTION BLOOD 11/05/2024 5:40 PM CDT [facility] SPECIAL REQUESTS NO SPECIAL REQUEST 11/05/2024 5:40 PM CDT [facility] CULTURE RESULT NO GROWTH 5 DAYS 11/11/2024 11:13 AM CDT [facility] BLOOD SPECIMEN OBTAINED FOR BLOOD CULTURE / Unknown 11/05/2024 6:14 PM CDT 11/06/2024 11:05 AM CDT us Nazia Newsome MD MICROBIOLOGY - GENERAL ORDDelfina [facility] Final Result Performing Organization Address [facility] Co de Phone Number [facility] [address] [place] [address], [place] [phone] [facility] [address] [place] [address], * CORONAVIRUS (COVID-19) ANTIGEN (11/05/2024 6:00 PM CDT) [facility] CORONAVIRUS ANTIGEN [place] NEGATIVE NEGATIVE 11/05/2024 6:36 PM CDT [facility] Comment: NEGATIVE RESULTS DO NOT RULE [...] SPECIMEN TYPE NASAL 11/05/2024 6:05 PM CDT [facility] NASAL NASAL STRUCTURE / Unknown 11/05/2024 6:00 PM CDT Nazia Newsome MD MICROBIOLOGY - GENERAL ORDE BETRRAM Final Result Performing Organization Address [facility] Co de Phone Number [facility] [address] [place] [address], * INFLUENZA A & B (11/05/2024 6:00 PM CDT) SPECIMEN TYPE (INFLUENZA) NASOPHARYNGEAL SWAB 11/05/2024 6:05 PM CDT [facility] INFLUENZA A NEGATIVE NEGATIVE 11/05/2024 6:36 PM CDT [facility] INFLUENZA B NEGATIVE NEGATIVE 11/05/2024 6:36 PM CDT [facility] Comment: A NEGATIVE RESULT DOES NOT EXCLUDE INFLUENZA VIRUS INFECTION. IF INFLUENZA IS CIRCULATING IN YOUR COMMUNITY, A DIAGNOSIS OF INFLUENZA SHOULD BE CONSIDERED BASED ON A PATIENT'S CLINICAL PRESENTATION AND EMPIRIC ANTIVIRAL TREATMENT SHOULD BE CONSIDERED IF INDICATED. NASOPHARYNGEAL SWAB / Unknown 11/05/2024 6:00 PM CDT Nazia Newsome MD MICROBIOLOGY - GENERAL ORDDelfina [facility] Final Result Performing Organization Address [facility]/ZIP Co de Phone Number [facility] [address] [place] [address], * MG SCREENING W JASPREET ADEEL DIGI [...] in one year would seem adequate. Nilda Boswell APNP MAMMO Final Resu lt * ENDOSCOPY (SCAN ORDER) (10/10/2023 6:38 AM AFTERSCHOOL BABYSITTER) Simone Solomon MD SCANNING Final Result * Colonoscopy (05/20/2023 6:46 AM CDT) Simone Solomon MD GI PROCEDURE ORDERABLES Final Result from Last 3 Months or Most Recently Relevant to Health Maintenance Insurance MEDICARE [employer] Care Teams Legal Executive Assistant Relationship Specialty Start Date End Date Angel Escamilla MD [address] [place], [place] [phone] PCP - General FAMILY PRACTICE 11/05/24
--- OUTSIDE RECORDS SUMMARY | 2024-11-26 11:47 | XMS_ITS | Clinical Summary ---
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 CHLORIDE 99 96 - 108 mmol/L 11/16/2018 5:[address] [facility] CO2, VENOUS 24 21 - 32 mmol/L 11/16/2018 5:[address] [facility] ANION GAP 16.4 10.0 - 20.0 mmol/L 11/16/2018 5:[address] [facility] GLUCOSE 288(H) 80 - 115 mg/dL 11/16/2018 5:[address] [facility] BUN 29(H) 6 - 19 mg/dL 11/16/2018 5:[address] [facility] CREATININE, BLOOD 1.10 0.40 - 1.10 mg/dL 11/16/2018 5:[address] [facility] BUN/CREATININE RATIO 26(H) 12 - 20 ratio 11/16/2018 5:[address] [facility] TOTAL PROTEIN 7.6 6.0 - 8.2 g/dL 11/16/2018 5:[address] [facility] ALBUMIN 3.7 3.4 - 4.8 g/dL 11/16/2018 5:[address] [facility] CALCIUM 10.0 8.8 - 10.0 mg/dL 11/16/2018 5:[address] [facility] T BILI 0.6 0.0 - 1.0 mg/dL 11/16/2018 5:56 PM T [facility] SGOT (AST) 17 0 - 37 U/L 11/16/2018 5:[address] [facility] SGPT (ALT) 27 12 - 45 U/L 11/16/2018 5:[address] [facility] ALKALINE PHOSPHATASE 89 39 - 117 U/L 11/16/2018 5:[address] [facility] GFR, EST. NONAFRICAN 48 11/16/2018 5:[address] [facility] Comment: Reference interval for MDRD GFR: GFR >=60: Satisfactory kidney function GFR <60: Chronic kidney disease GFR <15: Kidney failure Estimated GFR may be less reliable in patients >70yr, women, patients with serious comorbid conditions, or patients with extremes of body size, muscle mass, or nutritional status. Revised 11/18/07 (National Kidney Disease Education Program) GFR, EST. 57(L) >=60 019 5:[address] [facility] Comment: Reference interval for MDRD GFR: [...] 4:42 PM CDT 11/16/2018 4:51 PM CDT [facility] - 11/16/2018 5:56 PM CDT Venipuncture should occur prior to sulfasalazine and/or sulfapyridine administration due to the potential for falsely depressed results for ALT and AST. Glucose can be falsely depressed after administration of sulfasalazine, and falsely elevated with administration of sulfapyridine. us Yue Campos MD CHEMISTRY ORDERABLES Final Result [facility] [address] [place] [address] * JAME SCREENING BILATERAL DIGITAL W CAD (03/25/2017 9:51 AM CDT) Anatomical Region Laterality Modality breast Bilateral Mammography 03/25/2017 9:54 AM CDT Impressions 03/25/2017 9:54 AM CDT ASSESSMENT: BI-RADS 2; BENIGN RECOMMENDATIONS: Yearly screening mammogram in 1 year. CAD used DICTATION LOCATION: [facility] Signed By: Danielito Emanuel M.D. Narrative [...] bilateral NMA SCR MAMMO DDI performed at [facility]. The breast tissue is average. No significant changes when compared with prior studies. Finding: Calcifications Laterality: bilateral Description: There are typically benign punctate, rim, round calcifications. Distribution is diffuse/scattered. us Yousuf Calixto MD IMG MAMMO ORDERABLES Final Resul t * (ABNORMAL) HBA1C, EST GLUCOSE (07/31/2009 9:00 AM POLE LIFT OPERATOR) HGB-A1C 6.5(H) 4.0 - 6.0 % [facility] Est Average Glucose 139.9 MG/DL [facility] 07/31/2009 9:00 AM POLE LIFT OPERATOR 07/31/2009 7:45 PM POLE LIFT OPERATOR us Alpesh Tay DO CHEMISTRY ORDERABLES Final Res ult [facility] [address] [place] [address] from Last 3 Months or Most Recently Relevant to Health Maintenance Insurance [employer] [facility] [employer] BENEF[employer] MEDICARE Advance Directives * Full Code (Latest Code Status on File) Date Activated Date Inactivated Comments 11/16/2018 4:35 PM 11/17/2018 8:40 PM CPR-Full Josef atment: FULL ARREST: Attempt Resuscitation/CPR wit intubation and mechanical ventilation. PRE-ARREST: Use entire range of life support measures to stabilize the patient. Care Teams Bead Flipper Relationship Specialty Start Date End Date Yousuf Calixto MD [address] [place] [address] PCP - General Family Medicine 05/18/15
[2024-11-26 11:54] LABS: Hemoglobin A1C 6.3 % (<5.7)
[2024-11-26 12:07] LABS: Alanine Aminotransferase 25 U/L (14-59); Albumin Level 3.6 g/dL (3.4-5.0); Alkaline Phosphatase 102 U/L (46-116); Anion Gap 10 mmol/L (4-12); Aspartate Amino Transferase 20 U/L (15-37); Bilirubin,Total 0.8 mg/dL (0.00-1.00); Blood Urea Nitrogen 23 mg/dL (7-18); Carbon Dioxide 28 mmol/L (21-32); Chloride 103 mmol/L (98-108); Estimated Glomerular Filt Rate 41; Glucose 129 mg/dL (70-99); Osmolality Calculated 297 mOsm/kg (285-295); Potassium 4.1 mmol/L (3.5-5.1); Sodium 141 mmol/L (136-145); Total Protein 7.4 g/dL (6.4-8.2)
== END 2024-11-26 11:21 | disposition home or self-care (01) ==
LOC: CHSLAB 11:22
PROVIDERS: PCP Family Medicine; Visit Provider Internal Medicine Nephrology
DX: N18.32 Chronic kidney disease, stage 3b (principal); E11.22 Type 2 diabetes mellitus with diabetic chronic kidney disease; I12.9 Hypertensive chronic kidney disease with stage 1 through stage 4 chronic kidney disease, or unspecified chronic kidney disease; N25.81 Secondary hyperparathyroidism of renal origin; E55.9 Vitamin D deficiency, unspecified
CPT/HCPCS: 36415; 80053; 82570; 83036; 84156; 85025

== ENCOUNTER 2025-03-14 12:15 | Outpatient (CLI) | payer MEDICARE, OTHER, SELFPAY ==
--- OUTSIDE RECORDS SUMMARY | 2025-03-14 12:21 | XMS_ITS | Clinical Summary ---
Author Organization [facility] Address [address] [place] [address] Care Team Providers Care Lumber Puller Name Role Phone Angel Escamilla MD Primary Care Provider [phone] Allergies Active Allergy Reactions Criticality Noted Date [...] 1 TIME WEEKLY FOR 4 WEEKS Active Encounters Date Type Department Care Team Description 02/10/2025 2:42 PM CDT - 02/10/2025 3:45 PM CDT Emergency [facility] [address] [address] Slava Amos DO Elbow Injury Discharge Disposition: Home or Self Care (Routine Discharge) 02/10/2025 Travel from Last 3 Months Family History [...] Sign Reading Time Taken Comments Blood Pressure 121/75 02/10/2025 3:13 PM CDT Pulse 83 02/10/2025 3:13 PM CDT Temperature 35.7 C (96.3 F) 02/10/2025 2:53 PM CDT Respiratory Rate 16 02/10/2025 3:13 PM CDT Oxygen Saturation 98% 02/10/2025 3:13 PM CDT Inhaled Oxygen Concentration - - Weight 121.6 kg (268 lb) 02/10/2025 2:53 PM CDT Height 157.5 cm (5' 2) 02/10/2025 2:53 PM CDT Body Mass Index 49.02 02/10/2025 2:53 PM CDT Plan of Treatment Health Maintenance Due Date Last Done Comments Hepatitis C 1969 DTaP, Tdap and Td Vaccines (1 - Tdap) 1970 Pneumococcal Vaccine: 50+ Years (1 of 1 - PCV) 2001 RSV Immunization or 60+ Years (1 - Risk 60-74 years 1-dose series) 2011 Annual Medicare Wellness Visit 2016 Dexa Scan (General) 2016 Zoster Vaccines (2 of 3) 07/04/2016 [...] Procedure Name Priority Date/Time Associated Diagnosis Comments XR KNEE ADEEL 3V STAT 02/10/2025 3:10 PM CDT XR ELBOW LT M3V STAT 02/10/2025 3:[address] FACIAL BONES WO CON STAT 02/10/2025 2:[address] HEAD WO CON STAT 02/10/2025 2:59 PM CDT MG SCREENING W JASPREET ADEEL DIGI Routine 01/15/2024 1:17 PM CDT Visit for screening mammogram ENDOSCOPY (SCAN ORDER) 10/10/2023 6:38 AM TANK CAR REPAIRER COLONOSCOPY 05/20/2023 6:46 AM CDT from Last 3 Months or Most Recently Relevant to Health Maintenance Results * XR KNEE ADEEL 3V (02/10/2025 3:10 PM CDT) Anatomical Region Laterality Modality Knee Radiographic Steffany ging 02/10/2025 3:23 PM CDT Impressions 02/10/2025 3:26 PM CDT IMPRESSION: No acute findings. Degenerative changes as described. Ordered By: SLAVA AMOS Interpreted By: Percy Loza MD, 02/10/2025 3:23 PM Narrative 02/10/2025 3:26 PM CDT [address] [place] [address] Examination: Right and left knee. Exam time: 1440 hours. Clinical history: Pain after a fall. Comparison: None. Technique: AP, crosstable lateral and sunrise views each. Findings: No fracture, dislocation or other acute bony abnormality is identified. There are relatively symmetric moderate to marked degenerative changes manifested by patellofemoral and medial femorotibial joint space narrowing and periarticular osteophyte formation. These are greatest in the medial femorotibial compartment on the left. No other significant bone or joint abnormality is noted. The soft tissues are unremarkable. Procedure Note Percy Loza MD - 02/10/[address] [place] [address] Examination: Right and left knee. Exam time: 1440 hours. Clinical history: Pain after a fall. Comparison: None. Technique: AP, crosstable lateral and sunrise views each. Findings: No fracture, dislocation or other acute bony abnormality isidentified. There are relatively symmetric moderate to marked degenerativechanges manifested by patellofemoral and medial femorotibial joint spacenarrowing and periarticular osteophyte formation. These are greatest inthe medial femorotibial compartment on the left. No other significant boneor joint abnormality is noted. The soft tissues are unremarkable. IMPRESSION: No acute findings. Degenerative changes as described. Ordered By: SLAVA AMOS Interpreted By: Percy Loza MD, 02/10/2025 3:23 PM Slava Amos DO GENERAL IMAGING Final Result * XR ELBOW LT M3V (02/10/2025 3:10 PM CDT) Anatomical Region Laterality Modality Elbow Radiographic Steffany ging 02/10/2025 3:19 PM CDT Impressions 02/10/2025 3:20 PM CDT IMPRESSION: No acute findings. Ordered By: SLAVA AMOS Interpreted By: Percy Loza MD, 02/10/2025 3:19 PM Narrative 02/10/2025 3:20 PM CDT [address] [place] [address] Examination: Left elbow. Exam time: 1443 hours. Clinical history: Pain after a fall. Comparison: None. Technique: Three views. Findings: No fracture, dislocation or other acute bony abnormality is identified. No other significant bone or joint abnormality is noted. The soft tissues are unremarkable. Procedure Note Percy Loza MD - 02/10/[address] [place] [address] Examination: Left elbow. Exam time: 1443 hours. Clinical history: Pain after a fall. Comparison: None. Technique: Three views. Findings: No fracture, dislocation or other acute bony abnormality isidentified. No other significant bone or joint abnormality is noted. Thesoft tissues are unremarkable. IMPRESSION: No acute findings. Ordered By: SLAVA AMOS Interpreted By: Percy Loza MD, 02/10/2025 3:19 PM Slava Amos DO GENERAL IMAGING Final Result * CT HEAD WO CON (02/10/2025 2:59 PM CDT) Anatomical Region Laterality Modality Head Computed Tomogra phy 02/10/2025 3:16 PM CDT Impressions 02/10/2025 3:19 PM CDT IMPRESSION: 1. No acute intracranial process identified. 2. Small vessel disease. 3. Sphenoid sinusitis. Ordered By: SLAVA AMOS Interpreted By: Percy Loza MD, 02/10/2025 3:16 PM Narrative 02/10/2025 3:19 PM [address] [place] [address] Examination: CT of the head without contrast. Exam time: 1458 hours. Clinical history: Trauma. Ground-level fall striking the head. History of hypertension and diabetes. Comparison: None. Technique: Noncontrast axial scans from skull base to vertex. Sagittal and coronal reconstructions were performed from the data set. A dose lowering technique was used for this procedure, which may include, but is not limited to, dose reduction techniques, automated exposure control, the use of iterative reconstruction and ALARA/Image Gently techniques. Findings: The ventricles are normal in size and configuration. No shift of midline or mass effect is noted. There is prominence of the fissures and sulci, compatible with age. There is mild periventricular decreased attenuation, compatible with small vessel disease. Intracranially, no other areas of abnormal x-ray attenuation are identified. In particular, there is no mass, hemorrhage or sign of acute stroke. No extracerebral fluid collections. The skull appears intact. Incidental hyperostosis frontalis interna is noted. There is mucosal thickening in the sphenoid sinus. The paranasal sinuses and mastoid air cells are otherwise clear. Procedure Note Percy Loza MD - 02/10/[address] [place] [address] Examination: CT of the head without contrast. Exam time: 1458 hours. Clinical history: Trauma. Ground-level fall striking the head. History ofhypertension and diabetes. Comparison: None. Technique: Noncontrast axial scans from skull base to vertex. Sagittal andcoronal reconstructions were performed from the data set. A dose loweringtechnique was used for this procedure, which may include, but is notlimited to, dose reduction techniques, automated exposure control, the useof iterative reconstruction and ALARA/Image Gently techniques. Findings: The ventricles are normal in size and configuration. No shift ofmidline or mass effect is noted. There is prominence of the fissures andsulci, compatible with age. There is mild periventricular decreasedattenuation, compatible with small vessel disease. Intracranially, noother areas of abnormal x-ray attenuation are identified. In particular,there is no mass, hemorrhage or sign of acute stroke. No extracerebralfluid collections. The skull appears intact. Incidental hyperostosisfrontalis interna is noted. There is mucosal thickening in the sphenoidsinus. The paranasal sinuses and mastoid air cells are otherwise clear. IMPRESSION: 1. No acute intracranial process identified. 2. Small vessel disease. 3. Sphenoid sinusitis. Ordered By: SLAVA AMOS Interpreted By: Percy Loza MD, 02/10/2025 3:16 PM us Slava Amos DO CT Final Result * CT FACIAL BONES WO CON (02/10/2025 2:59 PM CDT) Anatomical Region Laterality Modality Facial Computed Tomogra phy 02/10/2025 3:33 PM CDT Impressions 02/10/2025 3:37 PM CDT IMPRESSION: 1. No acute traumatic injury identified. 2. Left TMJ arthritis. 3. Sphenoid sinusitis. Ordered By: SLAVA AMOS Interpreted By: Percy Loza MD, 02/10/2025 3:33 PM Narrative 02/10/2025 3:[address] PM [address] [place] [address] Examination: CT of the facial bones. Exam time: 1458 hours. Clinical history: Trauma. Ground-level fall. Comparison: None. Technique: Thin section spiral axial scans were acquired through the facial bones without contrast. Sagittal and coronal reconstructions were performed from the data set. A dose lowering technique was used for this procedure, which may include, but is not limited to, dose reduction techniques, automated exposure control, the use of iterative reconstruction and ALARA/Image Gently techniques. Findings: There is no fracture. The temporomandibular joints appear intact. There is left TMJ arthritis. 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 The mastoid air cells and middle ear cavities are aerated. There is mucosal thickening in the sphenoid sinus. The paranasal sinuses are otherwise clear. The orbits and orbital contents appear unremarkable. Procedure Note Percy Loza MD - 02/10/2025 [place] [id number] [place] [address] Examination: CT of the facial bones. Exam time: 1458 hours. Clinical history: Trauma. Ground-level fall. Comparison: None. Technique: Thin section spiral axial scans were acquired through thefacial bones without contrast. Sagittal and coronal reconstructions wereperformed from the data set. A dose lowering technique was used for thisprocedure, which may include, but is not limited to, dose reductiontechniques, automated exposure control, the use of iterativereconstruction and ALARA/Image Gently techniques. Findings: There is no fracture. The temporomandibular joints appearintact. There is left TMJ arthritis. 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 The mastoid air cells and middle ear cavities are aerated. There ismucosal thickening in the sphenoid sinus. The paranasal sinuses areotherwise clear. The orbits and orbital contents appear unremarkable. IMPRESSION: 1. No acute traumatic injury identified. 2. Left TMJ arthritis. 3. Sphenoid sinusitis. Ordered By: SLAVA AMOS Interpreted By: Percy Loza MD, 02/10/2025 3:33 PM us Slava Amos DO CT Final Result * MG SCREENING W JASPREET ADEEL DIGI [...] * ENDOSCOPY (SCAN ORDER) (10/10/2023 6:38 AM TANK CAR REPAIRER) Simone Solomon MD SCANNING Final Result * Colonoscopy (05/20/2023 6:46 AM CDT) Simone Solomon MD GI PROCEDURE ORDERABLES Final Result from Last 3 Months or Most Recently Relevant to Health Maintenance Insurance MEDICARE [employer] - [employer] [place] [address] Care Teams Lumber Puller Relationship Specialty Start Date End Date Angel Escamilla MD [address] [place] [address] PCP - General FAMILY PRACTICE 11/05/24
--- OUTSIDE RECORDS SUMMARY | 2025-03-14 12:21 | XMS_ITS | Clinical Summary ---
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 Gender Identity Not on file Sexual Orientation [...] 3:43 PM CDT Height 157.5 cm (5' 2) 11/16/2018 3:43 PM CDT Body Mass Index 58.94 11/16/2018 3:43 PM CDT Plan of Treatment Health Maintenance Due Date Last Done Comments Diabetes: Eye Exam 1950 Diabetes: Foot Exam 1950 Hepatitis C Virus (HCV) Screening 1950 Cologuard 1996 Colonoscopy 1996 Colorectal Cancer Screening 1996 Immunochemical Fecal Occult Blood 1996 Diabetes: Hemoglobin A1c 01/29/2010 009, 05/08/2009, 01/27/2009, Additional history exists Respiratory Syncytial Virus (RSV) Immunization (Adult) (1 - Risk 60-74 years 1-dose series) 2011 Pneumococcal Immunization (50+ years) (2 of 2 - PCV) 12/30/2015 12/29/2014 Zoster Immunization (2 of 3) 07/04/2016 05/09/2016 Diabetes: Nephropathy Screening 11/17/2019 11/16/2018, 07/31/2009, 01/27/2009 SARS-COV-2 Immunization ( - season) 2024 05/29/2021, 11/03/2020, 10/13/2020 Influenza Immunization (#1) 04/25/202504/25, 05/02/2016, 05/29/2015, Additional history exists DTaP/Tdap/Td Immunization Discontinued 10/26/2014, 06/2005 TdaP Immunization Completed 10/26/2014 Pneumococcal Immunization Combined Discontinued 12/29/2014 Mammogram Discontinued 03/25/2017 Hepatitis B Immunization Aged Out No longer eligible based on patient's age to complete this topic Human Papillomavirus (HPV) Immunization Aged Out No longer eligible based [...] W/ ESTIMATED GLUCOSE Routine 07/31/2009 9:00 AM INDUSTRIAL CAFETERIA MANAGER from Last 3 Months or Most Recently Relevant to Health Maintenance Results * (ABNORMAL) Comprehensive Metabolic Panel (CMP) (11/16/2018 4:42 PM CDT) SODIUM 136 133 - 145 mmol/L 11/16/2018 5:56 PM [facility] POTASSIUM 3.4(L) 3.5 - 5.1 mmol/L 11/16/2018 5:56 PM [facility] CHLORIDE 99 96 - 108 mmol/L 11/16/2018 5:56 PM [facility] CO2, VENOUS 24 21 - 32 mmol/L 11/16/2018 5:56 PM [facility] ANION GAP 16.4 10.0 - 20.0 mmol/L 11/16/2018 5:56 PM [facility] GLUCOSE 288(H) 80 - 115 mg/dL 11/16/2018 5:56 PM [facility] BUN 29(H) 6 - 19 mg/dL 11/16/2018 5:56 PM [facility] CREATININE, BLOOD 1.10 0.40 - 1.10 mg/dL 11/16/2018 5:56 PM [facility] BUN/CREATININE RATIO 26(H) 12 - 20 ratio 11/16/2018 5:56 PM [facility] TOTAL PROTEIN 7.6 6.0 - 8.2 g/dL 11/16/2018 5:56 PM [facility] ALBUMIN 3.7 3.4 - 4.8 g/dL 11/16/2018 5:56 PM [facility] CALCIUM 10.0 8.8 - 10.0 mg/dL 11/16/2018 5:56 PM [facility] T BILI 0.6 0.0 - 1.0 mg/dL 11/16/2018 5:56 PM [facility] SGOT (AST) 17 0 - 37 U/L 11/16/2018 5:56 PM [facility] SGPT (ALT) 27 12 - 45 U/L 11/16/2018 5:56 PM [facility] ALKALINE PHOSPHATASE 89 39 - 117 U/L 11/16/2018 5:56 PM [facility] GFR, EST. NONAFRICAN 48 11/16/2018 5:56 PM [facility] Comment: Reference interval for MDRD GFR: GFR >=60: Satisfactory kidney function GFR <60: Chronic kidney disease GFR <15: Kidney failure Estimated GFR may be less reliable in patients >70yr, women, patients with serious comorbid conditions, or patients with extremes of body size, muscle mass, or nutritional status. Revised 11/18/07 (National Kidney Disease Education Program) GFR, EST. 57(L) >=60 019 5:56 PM [facility] Comment: Reference interval for MDRD GFR: GFR [...] 4:42 PM CDT 11/16/2018 4:51 PM CDT [facility] - 11/16/2018 5:56 PM T Venipuncture should occur prior to sulfasalazine and/or sulfapyridine administration due to the potential for falsely depressed results for ALT and AST. Glucose can be falsely depressed after administration of sulfasalazine, and falsely elevated with administration of sulfapyridine. us Yue Campos MD CHEMISTRY ORDERABLES Final Result [facility] [address] [place] [address] * JAME SCREENING BILATERAL DIGITAL W CAD (03/25/2017 9:51 AM CDT) Anatomical Region Laterality Modality breast Bilateral Mammography 03/25/2017 9:54 AM CDT Impressions 03/25/2017 9:54 AM CDT ASSESSMENT: BI-RADS 2; BENIGN RECOMMENDATIONS: Yearly screening mammogram in 1 year. CAD used DICTATION LOCATION: [facility] Signed By: Danielito Emanuel M.D. Narrative 03/25/2017 9:54 AM CDT PATIENT HISTORY: Patient is postmenopausal. Family history of breast cancer at age 50 in paternal aunt, breast cancer at age 90 in paternal grandmother. Patient's BMI is 54.9. Last mammogram was performed 4 years and 3 months ago. REASON FOR EXAM: screening, asymptomatic. FINDINGS: [facility] SCREENING BILATERAL DIGITAL W CAD Bilateral CC and MLO view(s) were taken. Technologist: Alanis Brambila, RT(R) Prior study comparison: January 06, 2013, bilateral NMA SCR MAMMO DDI performed at [facility]. The breast tissue is average. No significant changes when compared with prior studies. Finding: Calcifications Laterality: bilateral Description: There are typically benign punctate, rim, round calcifications. Distribution is diffuse/scattered. us Yousuf Calixto MD IMG MAMMO ORDERABLES Final Resul t * (ABNORMAL) HBA1C, EST GLUCOSE (07/31/2009 9:00 AM INDUSTRIAL CAFETERIA MANAGER) HGB-A1C 6.5(H) 4.0 - 6.0 % [facility] Est Average Glucose 139.9 MG/DL [facility] 07/31/2009 9:00 AM INDUSTRIAL CAFETERIA MANAGER 07/31/2009 7:45 PM INDUSTRIAL CAFETERIA MANAGER us Alpesh Tay DO CHEMISTRY ORDERABLES Final Res ult [facility] [address] [place] [address] from Last 3 Months or Most Recently Relevant to Health Maintenance Insurance [employer] [facility] BENEFITS MEDICARE Advance Directives * Full Code (Latest Code Status on File) Date Activated Date Inactivated Comments 11/16/2018 4:35 PM 11/17/2018 8:40 PM CPR-Full Josef atment: FULL ARREST: Attempt Resuscitation/CPR wit intubation and mechanical ventilation. PRE-ARREST: Use entire range of life support measures to stabilize the patient. Care Teams [employer] Thread Winder Relationship Specialty Start Date End Date Yousuf Calixto MD [address] [place] [address] PCP - General Family Medicine 05/18/15
--- OUTSIDE RECORDS SUMMARY | 2025-03-14 12:21 | XMS_ITS | Data Portability ---
Author Organization [facility], [address] [facility] ([place]) Address [address] 4th [place] [address] Care Team Providers Care Swiss Machinist Name Role Phone TOMEKA SAMUELS Primary Care Provider BRE OG [employer] NELLY ANNE [employer] Assessment Encounter Date Assessment Date Assessment LastModified [...] Abnormal Flag Note LastModifiedBy Organization Detail LastModifiedTime 02/26/20 25 05/17/2019 imagi ng/di agnos tic resul t No observ ation record ed. [email or web address] Not Available 0 02/25/2025 17:30:48 02/26/20 25 07/09/2019 imagi ng/di agnos tic resul t No observ ation record ed. [email or web address] Not Available 0 02/25/2025 17:30:50 02/26/20 25 07/09/2019 imagi ng/di agnos tic resul t No observ ation record ed. [email or web address] Not Available 0 02/25/2025 17:30:50 02/26/20 25 07/15/2019 imagi ng/di agnos tic resul t No observ ation record ed. [email or web address] Not Available 0 02/25/2025 17:30:53 Result Notes None recorded. Problems Name Problem SNOMED Code Status Onset Date Resolution Date Notes Provider Name and Address Organization Details Recorded Time Chronic kidney disease stage 3 957523618 Active [address] [facility] 4 10:01:01 Type 2 diabetes mellitus 04598328 Active [address] [facility] 4 10:01:10 Benign essential hypertension 1830423 Active [address] [facility] 4 10:01:19 Proteinuria 83922393 [facility] 2023 [facility] 4 10:01:31 Edema 752530252 Active 2023 [facility] 4 10:01:41 Hypokalemia 33873673 [facility] 2023 [facility] 4 10:01:57 Problem Notes None recorded. Medical Equipment None Reported. Allergies Allergen ID Allergen Name Allergen Category Reaction Reaction Severity Criticality Documentation Date Start Date Code Code System Note Provider Name and Address Organization Details Recorded Time 4495101 albuterol medicatio n Not available Not available Not available 11/01/20242015 435 RxNorm unrec ogniz ed react ion (text : Jaren green, code: [id number]) [facility] Maia Anderson [facility] 5 18:07:47 6269257 dapaglifl ozin propanedi ol medicatio n rash swelling Not available Not available [facility] 11/01/20242022 [address] [facility] 5 18:07:50 Medications Name Sig Start Date Stop Date [...] Available No t Available FreeStyle Ida 3 [place] USE DIRECTED 06/10 completed Not Available Not Available Not Available Vitals Date Recorded Body height Heart rate Systolic And Diastolic Provider Name and Address Organization Details Last Updated DateTime 02/12/2024 165.1 cm 80 /min 112/70 mm[Hg] [facility] 02/12/2024 14:22:53 Date Recorded Body height Body mass index (BMI) Body weight Heart rate Oxygen saturation Oxygen saturation in Arterial blood by Pulse oximetry Systolic And Diastolic Provider Name and Address Organization Details Last Updated DateTime 165.1 cm 50.9 kg/m2 387513. 27 g 98 /min 94 % 94 % 140/86 mm[Hg] [facility] 13:55:51 Date Recorded Body height Heart rate Systolic And Diastolic Provider Name and Address Organization Details Last Updated DateTime 07/08/2024 165.1 cm 102 /min 114/62 mm[Hg] [facility] 07/08/2024 15:27:50 Social History None recorded. Functional Status None recorded. Mental Status None recorded. Family History Nothing Reported. Medical History No medical history recorded. Gynecological HistoryNo gynecological history recorded. Obstetrics History GPAL:G 0 P 0 0 0 0 Past Encounters Encounter ID Performer Location Encounter Start Date Encounter Closed Date Diagnosis/Indication Diagnosis SNOMED-CT Code Diagnosis ICD10 Code Diagnosis Note [id number] Bre Og PA-C [facility] ([place] [address] [employer] [facility] [place] [address] 02/12/2024 13:46:49 02/12/2024 14:45:04 Chronic kidney disease stage 3 147664315 N18.30 Benign ess ential hypertension 7518362 I10 Edema 031668677 R60.9 Hypokalemia 79100315 E87 .6 Proteinuria 25238232 R80 .9 Type 2 elise betes mellitus 37253846 E11.21 [id number] Nelly Anne MD [facility] ([place] [address] [facility] [place] [address] 06/10/2024 13:49:15 06/10/2024 14:36:26 Chronic kidney disease stage 3 416148018 N18.30 Benign ess ential hypertension 8090384 I10 Edema 862892251 R60.9 Hypokalemia 94411015 E87 .6 Proteinuria 28201483 R80 .9 Type 2 elise betes mellitus 80574218 E11.21 [id number] Bre Og PA-C [facility] ([place]) [address] [place] [address] 07/08/2024 15:04:10 07/08/2024 16:05:49 Chronic kidney disease stage 3 808350374 N18.30 CBC, renal function panel, urine microalbum in/creatin ine ratio prior to next appointmen tfollow up in 2-4 wks Benign ess ential hypertension 2273743 I10 Edema 987535208 R60.9 Hypokalemia 74255951 E87 .6 Proteinuria 69990027 R80 .9 Type 2 elise betes mellitus 88437578 E11.21 Health Concerns Section Related Observation LastModified by Organization Detai ls LastModified Time None Recorded Concern Status LastModified by Organization Details LastModified Time None Recorded Advance Directives Directive None Recorded Payers Insurance Date Sequence Insurance Name Policy Number Policy Gómez Covered Member ID Gómez Member ID Guarantor Name 10/30/2024 1 [place] Kiah Del Cid [id number] Kiah Del Cid 08/15/2024 2 UMR (INDEMNITY) [id number] Kiah Del Cid 10/30/2024 2 UMR [id number] Kiah Del Cid [id number] Kiah Del Cid Notes Date Note Type [...] knee pain. Bre Og PA-C [address] [place] [address], [phone], [facility] 02/12/2024 15:35:07 06/10/2024 text/html Ms. Del Cid [...] 10 systolic. Nelly Anne MD [address] [place] [address], [phone], [facility] 06/10/2024 14:27:27 07/08/2024 text/html Ms. Del Cid [...] to her son who lives down in [place]. Bre Og PA-C [address] [place] [address], [phone], [facility] 07/08/2024 17:16:27 OBGyn Episode No OBEpisode recorded.
[2025-03-14 12:36] LABS: Hematocrit 43.3 % (35.0-42.0); Hemoglobin 14.6 g/dL (11.7-13.8); Immature Granulocyte Percent A 0.6 % (0.0-0.0); Lymphocytes Absolute Auto 2.04 K/mm3 (1.10-4.50); Mean Corpuscular HGB Conc 33.7 g/dL (32-36); Mean Corpuscular Hemoglobin 29.5 pg (27.0-31.0); Mean Corpuscular Volume 87.5 fL (78.0-102.0); Nucleated Red Blood Cells Absolute Auto 0.00 K/mm3 (0.00-0.00); Nucleated Red Blood Cells Perc 0.0 % (0-0.0); Platelet Count Result 212 K/mm3 (150-420); Red Blood Count 4.95 M/mm3 (4.20-5.40); White Blood Count 8.4 K/mm3 (4.8-10.8)
[2025-03-14 12:45] LABS: Hemoglobin A1C 5.5 % (<5.7)
[2025-03-14 12:45] LABS: Total Protein Urine Random 38 mg/dL; Ur Ttl Prot Creatinine Ratio 0.26 mg/mg (0-0.20)
[2025-03-14 13:00] LABS: Alanine Aminotransferase 23 U/L (6-35); Albumin Level 4.3 g/dL (3.5-5.1); Alkaline Phosphatase 84 U/L (38-126); Anion Gap 6 mmol/L (4-12); Aspartate Amino Transferase 35 U/L (14-36); Bilirubin,Total 0.7 mg/dL (0.2-1.3); Blood Urea Nitrogen 24 mg/dL (7-17); Calcium 10.8 mg/dL (8.4-10.2); Carbon Dioxide 23 mmol/L (22-30); Chloride 109 mmol/L (98-107); Cholesterol 175 mg/dL (0-200); Estimated Glomerular Filt Rate 51; Glucose 114 mg/dL (65-110); HDL Direct 47 mg/dL; Osmolality Calculated 291 mOsm/kg (285-295); Potassium 4.4 mmol/L (3.4-5.0); Sodium 138 mmol/L (137-145); Total Protein 7.1 g/dL (6.3-8.2); Triglycerides 228 mg/dL (<150)
[2025-03-14 13:30] LABS: Thyroid Stimulating Hormone 0.691 uIU/mL (0.465-4.680)
[2025-03-15 15:09] LABS: Calcium, Ionized 5.9 mg/dL (4.5-5.6)
== END 2025-03-14 12:16 | disposition home or self-care (01) ==
LOC: CHSLAB 12:18
PROVIDERS: PCP Family Medicine; Visit Provider Internal Medicine Nephrology
DX: I12.9 Hypertensive chronic kidney disease with stage 1 through stage 4 chronic kidney disease, or unspecified chronic kidney disease (principal); E11.22 Type 2 diabetes mellitus with diabetic chronic kidney disease; N18.32 Chronic kidney disease, stage 3b
CPT/HCPCS: 36415; 80053; 80061; 82330; 82570; 83036; 84100; 84156; 84443; 85025

== ENCOUNTER 2025-04-07 14:46 | Emergency (ER) | payer MEDICARE, OTHER, SELFPAY ==
--- NOTE | ~2025-04-07 | CT_ITS ---
EXAMINATION: CT abdomen pelvis w con DATE: 04/07/2025 16:30 INDICATION: Abdominal pain TECHNIQUE: Computed tomography (CT) of the abdomen and pelvis was performed with 100 mL Omnipaque-350 intravenous contrast. Automated exposure control and iterative reconstruction technique were employe d. The dose-length product was 1542.29 mGy-cm. COMPARISON: None FINDINGS: Elevation the left hemidiaphragm. Heart size normal. Atherosclerotic coronary artery calcifications, aortic valve calcification and dense mitral annular calcification. No pericardial or pleural effusion . Calcified right hilar lymph nodes and multiple splenic calcifications consistent with old granuloma tous disease. Numerous calcified gallstones layering in the dependent aspect of the normal gallbladde r. Liver, pancreas, bilateral adrenal glands are normal. There are bilateral renal cysts measuring up to 4.2 cm the left kidney. 6 x 2 mm nonobstructing stone versus more likely atherosclerotic ulcerati on at the lower pole the right kidney. Normal appendix. Multiple loops of nonobstructed small bowel e xtending to a large umbilical hernia. Contrast enhanced mesenteric arteries and veins are seen extend ing into the hernia sac with there is a similar degree of mucosal enhancement of the bowel is the bow el the remainder of the abdomen. Small amount of ascites in the hernia sac and in the cul-de-sac. Robinson dder, anteverted uterus and bilateral adnexa are unremarkable. No pathologically enlarged abdominal o r pelvic lymphadenopathy. Moderate lumbar spondylosis. IMPRESSION: 1. Multiple loops of otherwise normal appearing small bowel extending to a large umbilical hernia. 2. Small amount of ascites in the hernia sac and in the cul-de-sac. No other acute intra-abdominal/pe lvic process. 3. Cholelithiasis. Reviewed, dictated and finalized at location A. IMPRESSION: 1. Multiple loops of otherwise normal appearing small bowel extending to a larg e umbilical hernia. 2. Small amount of ascites in the hernia sac and in the cul-de-sac. No other ac [place] intra-abdominal/pelvic process. 3. Cholelithiasis.
[2025-04-07 14:47] VITALS: BP 162/107; PULSE 98; RESP 16; TEMP 36.1; O2SAT 97
--- OUTSIDE RECORDS SUMMARY | 2025-04-07 14:48 | XMS_ITS | Clinical Summary ---
Author Organization [facility] Address [address] [place] [address] Care Team Providers Care Driver Service Technician Name Role Phone Angel Escamilla MD Primary Care Provider [phone] Allergies Active Allergy Reactions Criticality Noted Date [...] ACTIVATED 0 Active Continuous Blood Gluc Sensor (DEM SolutionsSTYLE JUJU 14 DAY SENSOR) Misc CHANGE EVERY [...] CDT - 02/10/2025 3:45 PM CDT [facility] [address] [place] [address] Slava Amos DO Elbow Injury Discharge Disposition: [...] mammogram ENDOSCOPY (SCAN ORDER) 10/10/2023 6:38 AM COMMUNITY HEALTH NURSING DIRECTOR COLONOSCOPY 05/20/2023 6:46 AM CDT from Last [...] PM Narrative 02/10/2025 3:[address] [place] [address] Examination: Right and left knee. Exam time: [...] Note Percy Loza MD - 02/10/[address] [place] [address] Examination: Right and left knee. Exam time: [...] PM Narrative 02/10/2025 3:20 PM CDT [address] [place] [address] Examination: Left elbow. Exam time: 1443 hours. Clinical history: Pain after a fall. Comparison: None. Technique: Three views. Findings: No fracture, dislocation or other acute bony abnormality is identified. No other significant bone or joint abnormality is noted. The soft tissues are unremarkable. Procedure Note Percy Loza MD - 02/10/[address] [place] [address] Examination: Left elbow. Exam time: 1443 hours. [...] PM Narrative 02/10/2025 3:19 PM [address] [place] [address] Examination: CT of the head without contrast. [...] Note Percy Loza MD - 02/10/[address] [place] [address] Examination: CT of the head without contrast. [...] PM Narrative 02/10/2025 3:37 PM [address] [place] [address] Examination: CT of the facial bones. Exam [...] Procedure Note Percy Loza MD - 02/10/2025 [place] [address] [facility] [place] [address] Examination: CT of the facial bones. Exam [...] * ENDOSCOPY (SCAN ORDER) (10/10/2023 6:38 AM COMMUNITY HEALTH NURSING DIRECTOR) Simone Solomon MD SCANNING Final Result * Colonoscopy (05/20/2023 6:46 AM CDT) Simone Solomon MD GI PROCEDURE ORDERABLES Final Result from Last 3 Months or Most Recently Relevant to Health Maintenance Insurance MEDICARE [employer] GENERIC - [employer] [place] [address] Care Teams Driver Service Technician Relationship Specialty Start Date End Date Angel Escamilla MD [address] [place] [address] PCP - General FAMILY PRACTICE 11/05/24
--- OUTSIDE RECORDS SUMMARY | 2025-04-07 14:48 | XMS_ITS | Clinical Summary ---
Author Organization [facility] Address [address] [place] [address] Phone Care Team Providers Care Animal Husbandry Professor Name Role Phone Yousuf Calixto MD Primary Care Provider [phone] Allergies No known active allergies Medications verapamil [...] on file Legal Sex Female 3:27 AM MANAGER NURSING Gender Identity Not on file Sexual Orientation [...] W/ ESTIMATED GLUCOSE Routine 07/31/2009 9:00 AM MANAGER NURSING from Last 3 Months or Most Recently Relevant to Health Maintenance Results * (ABNORMAL) CMP (COMPREHENSIVE METABOLIC PANEL) (11/16/2018 4:42 PM CDT) SODIUM 136 133 - 145 mmol/L 11/16/2018 5:[address] [facility] POTASSIUM 3.4(L) 3.5 - 5.1 mmol/L 11/16/2018 5:[address] [facility] CHLORIDE 99 96 - 108 mmol/L 11/16/2018 5:[address] [facility] CO2, VENOUS 24 21 - 32 mmol/L 11/16/2018 5:[address] [facility] ANION GAP 16.4 10.0 - 20.0 mmol/L 11/16/2018 5:[address] [facility] GLUCOSE 288(H) 80 - 115 mg/dL 11/16/2018 5:[address] [facility] BUN 29(H) 6 - 19 mg/dL 11/16/2018 5:[address] [facility] CREATININE, BLOOD 1.10 0.40 - 1.10 mg/dL 11/16/2018 5:[address] [facility] BUN/CREATININE RATIO 26(H) 12 - 20 ratio 11/16/2018 5:[address] [facility] TOTAL PROTEIN 7.6 6.0 - 8.2 g/dL 11/16/2018 5:[address] [facility] ALBUMIN 3.7 3.4 - 4.8 g/dL 11/16/2018 5:[address] [facility] CALCIUM 10.0 8.8 - 10.0 mg/dL 11/16/2018 5:[address] [facility] T BILI 0.6 0.0 - 1.0 mg/dL 11/16/2018 5:[address] [facility] SGOT (AST) 17 0 - 37 U/L 11/16/2018 5:[address] [facility] SGPT (ALT) 27 12 - 45 U/L 11/16/2018 5:[address] [facility] ALKALINE PHOSPHATASE 89 39 - 117 U/L 11/16/2018 5:[address] [facility] GFR, EST. NONAFRICAN 48 11/16/2018 5:[address] [facility] Comment: Reference interval for MDRD GFR: GFR >=60: Satisfactory kidney function GFR <60: Chronic kidney disease GFR <15: Kidney failure Estimated GFR may be less reliable in patients >70yr, women, patients with serious comorbid conditions, or patients with extremes of body size, muscle mass, or nutritional status. Revised 11/18/07 (National Kidney Disease Education Program) GFR, EST. 57(L) >=60 019 5:[address] [facility] Comment: Reference interval for MDRD GFR: GFR [...] CDT 11/16/2018 4:[address] [facility] - 11/16/2018 5:56 PM T Venipuncture should occur prior to sulfasalazine and/or sulfapyridine administration due to the potential for falsely depressed results for ALT and AST. Glucose can be falsely depressed after administration of sulfasalazine, and falsely elevated with administration of sulfapyridine. us Yue Campos MD CHEMISTRY ORDERABLES Final Result [facility] [address] [place] [address] * JAME SCREENING BILATERAL DIGITAL W CAD (03/25/2017 9:51 AM CDT) Anatomical Region Laterality Modality breast Bilateral Mammography 03/25/2017 9:54 AM CDT Impressions 03/25/2017 9:54 AM CDT ASSESSMENT: BI-RADS 2; BENIGN RECOMMENDATIONS: Yearly screening mammogram in 1 year. CAD used DICTATION LOCATION: [facility] Signed By: Danielito Emanuel M.D. Narrative 03/25/2017 9:54 AM CDT PATIENT HISTORY: Patient is postmenopausal. Family history of breast cancer at age 50 in paternal aunt, breast cancer at age 90 in paternal grandmother. Patient's BMI is 54.9. Last mammogram was performed 4 years and 3 months ago. REASON FOR EXAM: screening, asymptomatic. FINDINGS: [facility] SCREENING BILATERAL DIGITAL W CAD Bilateral CC and MLO view(s) were taken. Technologist: Alanis Brambila, RT(R) Prior study comparison: January 06, 2013, bilateral NMA SCR MAMMO DDI performed at [facility]. The breast tissue is average. No significant changes when compared with prior studies. Finding: Calcifications Laterality: bilateral Description: There are typically benign punctate, rim, round calcifications. Distribution is diffuse/scattered. us Yousuf Calixto MD IMG MAMMO ORDERABLES Final Resul t * (ABNORMAL) HBA1C, EST GLUCOSE (07/31/2009 9:00 AM MANAGER NURSING) HGB-A1C 6.5(H) 4.0 - 6.0 % [facility] Est Average Glucose 139.9 MG/DL [facility] 07/31/2009 9:00 AM MANAGER NURSING 07/31/2009 7:45 PM MANAGER NURSING us Alpesh Tay DO CHEMISTRY ORDERABLES Final Res ult [facility] [address] [place] [address] from Last 3 Months or Most Recently Relevant to Health Maintenance Insurance [employer] [facility] BENEFITS MEDICARE Advance Directives * Full Code (Latest Code Status on File) Date Activated Date Inactivated Comments 11/16/2018 4:35 PM 11/17/2018 8:40 PM CPR-Full Josef atment: FULL ARREST: Attempt Resuscitation/CPR wit intubation and mechanical ventilation. PRE-ARREST: Use entire range of life support measures to stabilize the patient. Care Teams Animal Husbandry Professor Relationship Specialty Start Date End Date Yousuf Calixto MD [address] [place] [address] PCP - General Family Medicine 05/18/15
--- NOTE | 2025-04-07 14:59 | ECG_ITS ---
Test Date: 2025-04-07 15:10:47 Measurements Intervals [place] Rate: 92 P: 3 UT: 174 QRS: 17 QRSD: 89 T: 30 QT: 326 QTc: 404 Interpretive Statements SINUS RHYTHM WITH OCCASIONAL SUPRAVENTRICULAR PREMATURE COMPLEXES LOW QRS VOLTAGE IN PRECORDIAL LEADS CONSIDER INFERIOR INFARCT, AGE INDETERMINATE BASELINE ARTIFACT- I, II, V4-V6 ABNORMAL ECG No previous ECG available for comparison Electronically Signed On 04-07-2025 15:16:18 CDT by Jose Zapata D.O.
[2025-04-07] MEDS: KETOROLAC 30 MG/ML VIAL (*BKC) IV PUSH (15:21)
[2025-04-07] MEDS: SODIUM CHLORIDE 0.9% IV 1,000 ML 999 ML IV CONT (15:21)
[2025-04-07] MEDS: ONDANSETRON INJ 4 MG/2 ML VIAL IV PUSH (15:21)
[2025-04-07 15:29] LABS: Hematocrit 44.0 % (35.0-42.0); Hemoglobin 14.7 g/dL (11.7-13.8); Immature Granulocyte Percent A 0.5 % (0.0-0.0); Lymphocytes Absolute Auto 2.04 K/mm3 (1.10-4.50); Mean Corpuscular HGB Conc 33.4 g/dL (32-36); Mean Corpuscular Hemoglobin 28.9 pg (27.0-31.0); Mean Corpuscular Volume 86.4 fL (78.0-102.0); Nucleated Red Blood Cells Absolute Auto 0.00 K/mm3 (0.00-0.00); Nucleated Red Blood Cells Perc 0.0 % (0-0.0); Platelet Count Result 192 K/mm3 (150-420); Red Blood Count 5.09 M/mm3 (4.20-5.40); White Blood Count 9.9 K/mm3 (4.8-10.8)
--- OUTSIDE RECORDS SUMMARY | 2025-04-07 15:33 | XMS_ITS | Clinical Summary ---
Author Organization [facility] Address [address] [place] [address] Phone Care Team Providers Care Teller Supervisor Name Role Phone Yousuf Calixto MD Primary Care Provider [phone] Allergies No known active allergies Medications verapamil [...] on file Legal Sex Female 3:27 AM SENIOR TRAINING AND DEVELOPMENT REP Gender Identity Not on file Sexual Orientation [...] W/ ESTIMATED GLUCOSE Routine 07/31/2009 9:00 AM SENIOR TRAINING AND DEVELOPMENT REP from Last 3 Months or Most Recently Relevant to Health Maintenance Results * (ABNORMAL) CMP (COMPREHENSIVE METABOLIC PANEL) (11/16/2018 4:42 PM CDT) SODIUM 136 133 - 145 mmol/L 11/16/2018 5:56 PM [facility] POTASSIUM 3.4(L) 3.5 - 5.1 mmol/L 11/16/2018 5:56 PM [facility] CHLORIDE 99 96 - 108 mmol/L 11/16/2018 5:56 PM [facility] CO2, VENOUS 24 21 - 32 mmol/L 11/16/2018 5:56 PM [facility] ANION GAP 16.4 10.0 - 20.0 mmol/L 11/16/2018 5:56 PM [facility] GLUCOSE 288(H) 80 - 115 mg/dL 11/16/2018 5:56 PM [facility] BUN 29(H) 6 - 19 mg/dL 11/16/2018 5:56 PM [facility] CREATININE, BLOOD 1.10 0.40 - 1.10 mg/dL 11/16/2018 5:56 PM [facility] BUN/CREATININE RATIO 26(H) 12 - 20 ratio 11/16/2018 5:56 PM [facility] TOTAL PROTEIN 7.6 6.0 - 8.2 g/dL 11/16/2018 5:56 PM [facility] ALBUMIN 3.7 3.4 - 4.8 g/dL 11/16/2018 5:56 PM [facility] CALCIUM 10.0 8.8 - 10.0 mg/dL 11/16/2018 5:56 PM [facility] T BILI 0.6 0.0 - 1.0 mg/dL 11/16/2018 5:56 PM [facility] SGOT (AST) 17 0 - 37 U/L 11/16/2018 5:56 PM [facility] SGPT (ALT) 27 12 - 45 U/L 11/16/2018 5:56 PM [facility] ALKALINE PHOSPHATASE 89 39 - 117 U/L 11/16/2018 5:56 PM [facility] GFR, EST. NONAFRICAN 48 11/16/2018 5:56 PM [facility] Comment: Reference interval for MDRD GFR: GFR >=60: Satisfactory kidney function GFR <60: Chronic kidney disease GFR <15: Kidney failure Estimated GFR may be less reliable in patients >70yr, women, patients with serious comorbid conditions, or patients with extremes of body size, muscle mass, or nutritional status. Revised 11/18/07 (National Kidney Disease Education Program) GFR, EST. 57(L) >=60 019 5:56 PM [facility] Comment: Reference interval for MDRD GFR: GFR [...] CDT 11/16/2018 4:[address] [facility] - 11/16/2018 5:56 PM T Venipuncture should occur prior to sulfasalazine and/or sulfapyridine administration due to the potential for falsely depressed results for ALT and AST. Glucose can be falsely depressed after administration of sulfasalazine, and falsely elevated with administration of sulfapyridine. us Yue Campos MD CHEMISTRY ORDERABLES Final Result [facility] [address] [place] [address] * JAME SCREENING BILATERAL DIGITAL W CAD (03/25/2017 9:51 AM CDT) Anatomical Region Laterality Modality breast Bilateral Mammography 03/25/2017 9:54 AM CDT Impressions 03/25/2017 9:54 AM CDT ASSESSMENT: BI-RADS 2; BENIGN RECOMMENDATIONS: Yearly screening mammogram in 1 year. CAD used DICTATION LOCATION: [facility] Signed By: Danielito Emanuel M.D. Narrative 03/25/2017 9:54 AM CDT PATIENT HISTORY: Patient is postmenopausal. Family history of breast cancer at age 50 in paternal aunt, breast cancer at age 90 in paternal grandmother. Patient's BMI is 54.9. Last mammogram was performed 4 years and 3 months ago. REASON FOR EXAM: screening, asymptomatic. FINDINGS: [facility] SCREENING BILATERAL DIGITAL W CAD Bilateral CC and MLO view(s) were taken. Technologist: Alanis Brambila, RT(R) Prior study comparison: January 06, 2013, bilateral NMA SCR MAMMO DDI performed at [facility]. The breast tissue is average. No significant changes when compared with prior studies. Finding: Calcifications Laterality: bilateral Description: There are typically benign punctate, rim, round calcifications. Distribution is diffuse/scattered. us Yousuf Calixto MD IMG MAMMO ORDERABLES Final Resul t * (ABNORMAL) HBA1C, EST GLUCOSE (07/31/2009 9:00 AM SENIOR TRAINING AND DEVELOPMENT REP) HGB-A1C 6.5(H) 4.0 - 6.0 % [facility] Est Average Glucose 139.9 MG/DL [facility] 07/31/2009 9:00 AM SENIOR TRAINING AND DEVELOPMENT REP 07/31/2009 7:45 PM SENIOR TRAINING AND DEVELOPMENT REP us Alpesh Tay DO CHEMISTRY ORDERABLES Final Res ult [facility] [address] [place] [address] from Last 3 Months or Most Recently Relevant to Health Maintenance Insurance AETNA [facility] BENEFITS MEDICARE Advance Directives * Full Code (Latest Code Status on File) Date Activated Date Inactivated Comments 11/16/2018 4:35 PM 11/17/2018 8:40 PM CPR-Full Josef atment: FULL ARREST: Attempt Resuscitation/CPR wit intubation and mechanical ventilation. PRE-ARREST: Use entire range of life support measures to stabilize the patient. Care Teams Teller Supervisor Relationship Specialty Start Date End Date Yousuf Calixto MD [address] [place] [address] PCP - General Family Medicine 05/18/15
--- OUTSIDE RECORDS SUMMARY | 2025-04-07 15:33 | XMS_ITS | Clinical Summary ---
Author Organization [facility] Address [address] [place] [address] Care Team Providers Care Public Improvement Inspector Name Role Phone Angel Escamilla MD Primary Care Provider [phone] Allergies Active Allergy Reactions Criticality Noted Date [...] ACTIVATED 0 Active Continuous Blood Gluc Sensor (FloovedSTYLE JUJU 14 DAY SENSOR) Misc CHANGE EVERY [...] CDT - 02/10/2025 3:45 PM CDT Emergency [facility] [address] [place] [address] Slava Amos DO Elbow Injury Discharge Disposition: [...] mammogram ENDOSCOPY (SCAN ORDER) 10/10/2023 6:38 AM SKEET OPERATOR COLONOSCOPY 05/20/2023 6:46 AM CDT from Last [...] 3:23 PM Narrative 02/10/2025 3:[address] [place] [address] Examination: Right and left knee. Exam time: [...] The soft tissues are unremarkable. Procedure Note Pecry Loza MD - 02/10/[address] [place] [address] Examination: Right and left knee. Exam time: [...] 3:19 PM Narrative 02/10/2025 3:20 PM CDT [address] [place] [address] Examination: Left elbow. Exam time: 1443 hours. Clinical history: Pain after a fall. Comparison: None. Technique: Three views. Findings: No fracture, dislocation or other acute bony abnormality is identified. No other significant bone or joint abnormality is noted. The soft tissues are unremarkable. Procedure Note Percy Loza MD - 02/10/[address] [place] [address] Examination: Left elbow. Exam time: 1443 hours. [...] 3:16 PM Narrative 02/10/2025 3:19 PM CDT [address] [place] [address] Examination: CT of the head without contrast. [...] Procedure Note Percy Loza MD - 02/10/[address] [place] [address] Examination: CT of the head without contrast. [...] 3:33 PM Narrative 02/10/2025 3:37 PM CDT [address] [place] [address] Examination: CT of the facial bones. Exam [...] Procedure Note Percy Loza MD - 02/10/2025 [place] [address] [facility] [place] [address] Examination: CT of the facial bones. Exam [...] * ENDOSCOPY (SCAN ORDER) (10/10/2023 6:38 AM SKEET OPERATOR) Simone Solomon MD SCANNING Final Result * Colonoscopy (05/20/2023 6:46 AM CDT) Simone Solomon MD GI PROCEDURE ORDERABLES Final Result from Last 3 Months or Most Recently Relevant to Health Maintenance Insurance MEDICARE [employer] GENERIC - [employer] [place] [address] Care Teams Public Improvement Inspector Relationship Specialty Start Date End Date Angel Escamilla MD [address] [place] [address] PCP - General FAMILY PRACTICE 11/05/24
[2025-04-07 15:36] LABS: Add Urine Microscopic? YES; Appearance Urine Clear (Clear); Glucose Urine UA Negative (Negative); Leukocyte Esterase Ur Negative LEU/UL (Negative); Nitrate Urine Negative (Negative); Specific Grav Ur 1.015 (1.010-1.020)
[2025-04-07 16:03] LABS: Alanine Aminotransferase 28 U/L (6-35); Albumin Level 4.3 g/dL (3.5-5.1); Alkaline Phosphatase 91 U/L (38-126); Anion Gap 7 mmol/L (4-12); Aspartate Amino Transferase 37 U/L (14-36); Bilirubin,Total 1.0 mg/dL (0.2-1.3); Blood Urea Nitrogen 37 mg/dL (7-17); Calcium 10.7 mg/dL (8.4-10.2); Carbon Dioxide 23 mmol/L (22-30); Chloride 109 mmol/L (98-107); Estimated CRCL calculation 45 ml/min; Estimated Glomerular Filt Rate 45; Glucose 108 mg/dL (65-110); INR 1.0; Lipase 149 U/L (23-300); Osmolality Calculated 297 mOsm/kg (285-295); Partial Thromboplastin Time 25.4 Sec (23.9-30.70); Prothrombin Time 11.3 Seconds (9.50-12.1); Sodium 139 mmol/L (137-145); Total Protein 7.3 g/dL (6.3-8.2)
[2025-04-07 16:04] LABS: Potassium 3.7 mmol/L (3.4-5.0)
[2025-04-07 16:15] LABS: Troponin I < 0.012 ng/mL (0.000-0.034)
[2025-04-07 16:29] VITALS: BP 141/77; PULSE 79; RESP 18; TEMP 35.7; O2SAT 99
--- NOTE | 2025-04-07 17:11 | ED.ABDPAIN ---
HPI - Abdominal Pain General Chief Complaint: Abdominal Pain Stated Complaint: stomach pain Time Seen by Provider: 04/07/25 14:49 Source: patient Mode of arrival: ambulatory Limitations: no limitations History of Present Illness HPI narrative: This is a 75-year-old female with history of ventral and umbilical hernia presents with abdominal pain with no diarrhea or constipation no vomiting patient does complain of some mild nausea pain rated at a 6/10 with no dysuria no hematuria no flank pain no chest pain no shortness of breath. MD elicited complaint: abdominal pain Pertinent past history: none Onset (ago): day(s) Pain Consistency: intermittent Location: periumbilical Severity: moderate Pain scale (0-10): 6 Quality: aching Related Data Home Medications ?Medication ?Instructions ?Recorded ?Confirmed ?Last Taken ?Type atorvastatin 10 mg tablet (Lipitor) 10 mg PO DAILY 09/17/24 03/21/25 Unknown History fluticasone propionate 220 1 puff inhalation Q12H 09/17/24 03/21/25 Unknown History mcg/actuation HFA aerosol inhaler (Flovent HFA) fluticasone propionate 50 2 spray intranasal DAILY 09/17/24 03/21/25 Unknown History mcg/actuation nasal spray,suspension furosemide 20 mg tablet 20 mg PO QAM 09/17/24 03/21/25 Unknown History levothyroxine 125 mcg capsule 125 mcg PO DAILY 09/17/24 03/21/25 Unknown History losartan 100 0.25 tablet PO DAILY 09/17/24 03/21/25 Unknown History mg-hydrochlorothiazide 25 mg tablet metoprolol tartrate 50 mg tablet 25 mg PO DAILY 09/17/24 03/21/25 Unknown History pantoprazole 20 mg tablet,delayed 20 mg PO QAM 09/17/24 03/21/25 Unknown History release potassium chloride 10 mEq 10 meq PO DAILY 09/17/24 03/21/25 Unknown History tablet,extended release (Klor-Con) tirzepatide 5 mg/0.5 mL 5 mg subcut WEEKLY 09/17/24 03/21/25 Unknown History subcutaneous pen injector (Daviunjabari) Allergies Allergy/AdvReac Type Severity Reaction Status Date / Time dapagliflozin (From [facility]) AdvReac Intermediate Rash Verified 04/07/25 14:57 Review of Systems Review of Systems: All systems reviewed & are unremarkable except as noted in HPI and below PMFSH Past Medical History Medical History Left knee DJD Right knee DJD COPD (chronic obstructive pulmonary disease) Proteinuria CKD (chronic kidney disease) Type 2 diabetes mellitus BMI greater than 40 Degenerative joint disease of knee Left knee pain Right knee pain HTN (hypertension) Family History Family History Mother Hypertension Father Hypertension Social History Social History Smoking status: Former smoker Alcohol intake: never Substance use: never Do You Feel Safe in your Home?: Yes Lack of Transportation: No Lack of Food: Never True Current Housing: I Have Housing Concerned About Future Housing: No Difficulty Paying Gas/Electric Bills: No Difficulty Paying for Meds: No Currently Unemployed: No Education: Master's Degree or Higher Difficulty w/ Childcare or Family Care: No Gender identity (if verbalized by the patient): Female Exam Const: General: healthy appearing and no acute distress Nutritional Appearance: well nourished and obese Orientation/consciousness: patient oriented x3 Limitations: no limitations Neck: Neck: normal visual inspection, no lymphadenopathy and no meningeal signs Chest: Chest palpation & inspection: normal inspection of the chest Resp: Effort & Inspection: normal respiratory effort Auscultation: clear to auscultation bilaterally Cardio: Rate: regular rate Rhythm: regular rhythm GI: GI Palp: Yes Soft to palpation Auscultation: normal bowel sounds : General: Yes bladder normal to palpation Urinary Catheter: Urinary Catheter: patent and draining Back/Spine/Pelvis: Back: no CVA tenderness Skin: General skin exam: normal color Rashes: no rashes Wounds: no wounds Neuro: General: patient oriented x3, moves all extremities, no meningeal signs and no focal motor deficits Extrem: General: normal to inspection, no clubbing, cyanosis or edema and no pedal edema Psych: Mental Status: mental status grossly normal Course Course Emergency Course: CT scan shows umbilical hernia and cholelithiasis with some no obstruction or incarceration evident. Labs reviewed with patient and unremarkable. EKG with no ST or T changes with normal sinus rhythm. Patient received IV fluids, Toradol IV along with Zofran and after reassessment pain level and nausea has improved. Vital Signs Vital signs: Vital Signs Temperature 36.1 C L 04/07/25 14:47 Pulse Rate 98 04/07/25 14:47 Respiratory Rate 16 04/07/25 14:47 Blood Pressure 162/107 H 04/07/25 14:47 Pulse Oximetry 97 04/07/25 14:47 Oxygen Delivery Room Air 04/07/25 14:47 Temperature 35.7 C L 04/07/25 16:29 Pulse Rate 79 04/07/25 16:29 Respiratory Rate 18 04/07/25 16:29 Blood Pressure 141/77 H 04/07/25 16:29 Pulse Oximetry 99 04/07/25 16:29 Oxygen Delivery Room Air 04/07/25 16:29 MDM - Abdominal Pain Lab Data 04/07/25 15:14 04/07/25 15:14 Labs: Lab Results 04/07/25 04/07/25 Range/Units 15:14 15:30 WBC 9.9 (4.8-10.8) K/mm3 RBC 5.09 (4.20-5.40) M/mm3 Hgb 14.7 H (11.7-13.8) g/dL Hct 44.0 H (35.0-42.0) % MCV 86.4 (78.0-102.0) fL MCH 28.9 (27.0-31.0) pg MCHC 33.4 (32-36) g/dL RDW 13.4 (11.6-14.4) % Plt Count 192 (150-420) K/mm3 MPV 10.3 (9.2-11.8) fl Immature Gran % (Auto) 0.5 H (0.0-0.0) % Neut % (Auto) 70.2 H (50.0-70.0) % Lymph % (Auto) 20.6 (18.0-42.0) % Esmeralda % (Auto) 7.8 (2.0-11.0) % Eos % (Auto) 0.6 L (1.0-6.0) % Baso % (Auto) 0.3 (0.0-1.0) % Lymph # (Auto) 2.04 (1.10-4.50) K/mm3 Esmeralda # (Auto) 0.77 (0.10-0.90) K/mm3 Eos # (Auto) 0.06 (0.02-0.50) K/mm3 Baso # (Auto) 0.03 (0.00-0.10) K/mm3 Abs Immat Gran (auto) 0.05 H (0.00-0.00) K/mm3 Absolute Neuts (auto) 6.93 (1.70-7.20) K/mm3 Absolute Nucleated RBC 0.00 (0.00-0.00) K/mm3 Nucleated RBC % 0.0 (0-0.0) % PT 11.3 (9.50-12.1) Seconds INR 1.0 APTT 25.4 (23.9-30.70) Sec Sodium 139 (137-145) mmol/L Potassium 3.7 (3.4-5.0) mmol/L Chloride 109 H (98-107) mmol/L Carbon Dioxide 23 (22-30) mmol/L Anion Gap 7 (4-12) mmol/L BUN 37 H D (7-17) mg/dL Creatinine 1.17 H (0.7-1.0) mg/dL Estim Creat Clear Calc 45 ml/min Estimated GFR 45 L (59 - ) Glucose 108 (65-110) mg/dL Calculated Osmolality 297 H (285-295) mOsm/kg Lactic Acid 1.4 (0.4-2.0) mmol/L Calcium 10.7 H (8.4-10.2) mg/dL Total Bilirubin 1.0 (0.2-1.3) mg/dL AST 37 H (14-36) U/L ALT 28 (6-35) U/L Alkaline Phosphatase 91 (38-126) U/L Troponin I < 0.012 (0.000-0.034) ng/mL Total Protein 7.3 (6.3-8.2) g/dL Albumin 4.3 (3.5-5.1) g/dL Lipase 149 (23-300) U/L Urine Color Light yellow (Yellow) Urine Appearance Clear (Clear) Urine pH 6.0 (5.0-8.0) Ur Specific [place] 1.015 (1.010-1.020) Urine Protein Trace H (Negative) Urine Glucose (UA) Negative (Negative) Urine Ketones Negative (Negative) Ur Blood (Man) Negative (Negative) Urine Nitrate Negative (Negative) Urine Bilirubin Negative (Negative) Urine Urobilinogen 0.2 (0.2-1.0) mg/dL Leukocyte Esterase Rfl Negative (Negative) RENU/UL Urine RBC 0-2 (0-2) /hpf Urine WBC 0-3 (0-3) /hpf Ur Squamous Epith Cells Rare (Few) /hpf Urine Bacteria Trace (None) /hpf Imaging Data Radiologist's impression: ITS Impressions Abdomen/Pelvis CT 04/07/25 16:34 IMPRESSION: 1. Multiple loops of otherwise normal appearing small bowel extending to a large umbilical hernia. 2. Small amount of ascites in the hernia sac and in the cul-de-sac. No other acute intra-abdominal/pelvic process. 3. Cholelithiasis. Critical Care Time Critical Care Time Critical Care Time: No Discharge Plan Discharge Clinical Impression: Abdominal pain Qualifiers: Abdominal location: generalized Qualified Code(s): R10.84 - Generalized abdominal pain Patient Disposition: Home Condition: Stable Instructions: Antibiotic Form, Abdominal Pain (ED) Additional Instructions: advised patient to take medication as prescribed and to follow with primary care physician within the next 3 to 5 days for further evaluation and treatment. Patient Language: Romansh Prescriptions: New tramadol 50 mg tablet 50 mg PO Q6H PRN (Reason: pain) Qty: 14 0RF ondansetron 4 mg tablet,disintegrating 4 mg PO Q6H PRN (Reason: nausea and vomiting) Qty: 14 0RF No Action atorvastatin [Lipitor] 10 mg tablet 10 mg PO DAILY furosemide 20 mg tablet 20 mg PO QAM potassium chloride [Klor-Con 10] 10 mEq tablet extended release 10 meq PO DAILY levothyroxine 125 mcg capsule 125 mcg PO DAILY metoprolol tartrate 50 mg tablet 25 mg PO DAILY fluticasone propionate [Flovent HFA] 220 mcg/actuation HFA aerosol inhaler 1 puff inhalation Q12H losartan-hydrochlorothiazide 100-25 mg tablet 0.25 tablet PO DAILY pantoprazole 20 mg tablet,delayed release (DR/EC) 20 mg PO QAM Mounjaro 5 mg/0.5 mL pen injector 5 mg subcut WEEKLY fluticasone propionate 50 mcg/actuation spray,suspension 2 spray intranasal DAILY Rx Instructions: administer into each nostril Kerendia 10 mg tablet 10 mg PO DAILY Qty: 30 6RF Follow-up/Referrals: Angel Escamilla MD [Primary Care Provider] - Time of Disposition: 17:16
[2025-04-07 17:17] VITALS: BP 133/81; PULSE 98; RESP 16; TEMP 35.8; O2SAT 98
--- NOTE | 2025-04-10 12:24 | PC.NURSE ---
Preliminary blood culture report; no growth in 48 hours.
--- NOTE | 2025-04-13 13:30 | PC.NURSE ---
blood culture final no growth
== END 2025-04-07 17:20 | disposition home or self-care (01) ==
PROVIDERS: Emergency Provider Emergency Medicine; PCP Family Medicine
DX: R10.84 Generalized abdominal pain (principal); J44.9 Chronic obstructive pulmonary disease, unspecified; I12.9 Hypertensive chronic kidney disease with stage 1 through stage 4 chronic kidney disease, or unspecified chronic kidney disease; E11.22 Type 2 diabetes mellitus with diabetic chronic kidney disease; N18.9 Chronic kidney disease, unspecified; Z87.891 Personal history of nicotine dependence
CPT/HCPCS: 36415; 74177; 80053; 81001; 83605; 83690; 84484; 85025; 85610; 85730; 87040; 93005; 96361; 96374; 96375; 99284; J1885; J2405; J7030; Q9967

== ENCOUNTER 2025-05-25 09:20 | Outpatient (CLI) | payer MEDICARE, OTHER, SELFPAY ==
--- NOTE | 2025-05-25 | EST_ITS ---
Patient Info Name: Kiah Del Cid Age: 75 years : 1950 Gender: Female Ht: 62 in Wt: 240 lbs BSA: 2.25 m2 HR: 76 bpm BP: 106 / 41 mmHg Exam Date: 05/25/2025 9:26 AM Patient Status: O Admit Date: 05/25/2025 Exam Type: CA stress vasiliy w NM A regadenoson stress test was performed. Staff Referring Physician: Angel Escamilla MD Attending Provider: Angel Escamilla MD Exercise Technologist: Katrin Johnson Exercise Physician: Jose Zapata DO Summary 1. 1. Negative lexiscan stress test for ischemic ST changes by ECG criteria. 2. 2. Stable hemodynamics throughout the test. 3. 3. Nuclear scan to follow and will be reported separately. Please correlate with it. 4. 4. Patient informed of the above results. Protocol: Lexiscan Stress ECG Details Stage: REST Duration (min): 0 min : 58 sec HR (bpm): 77 SBP (mmHg): 106 DBP (mmHg): 41 Stage: REST Duration (min): 5 min : 6 sec HR (bpm): 83 SBP (mmHg): 106 DBP (mmHg): 41 Stage: STAGE 1 Duration (min): 0 min : 59 sec HR (bpm): 96 SBP (mmHg): 125 DBP (mmHg): 54 Stage: RECOVERY Duration (min): 1 min : 0 sec HR (bpm): 102 SBP (mmHg): 125 DBP (mmHg): 54 Stage: RECOVERY Duration (min): 2 min : 0 sec HR (bpm): 95 SBP (mmHg): 125 DBP (mmHg): 54 Stage: RECOVERY Duration (min): 3 min : 0 sec HR (bpm): 87 SBP (mmHg): 111 DBP (mmHg): 55 Stage: RECOVERY Duration (min): 3 min : 9 sec HR (bpm): 92 SBP (mmHg): 111 DBP (mmHg): 55 Rest HR: 83 bpm Peak HR: 102 bpm Rest Sys BP: 106 mmHg Peak Sys BP: 125 mmHg Max Pred HR: 146 bpm % Max Pred HR: 70 % Target HR: 124 bpm Max RPP: 12,750 bpm*mmHg Termination Reason: Completed protocol Cardiac Symptoms: Shortness of breath Total Time: 1 min : 0 sec Rest Ivey BP: 41 mmHg Peak Ivey BP: 54 mmHg Total Dose: 0.4 mg Resting ECG Sinus rhythm. Stress ECG No ST changes. Arrhythmias None. Report Signatures
--- NOTE | ~2025-05-25 | NM_ITS ---
EXAMINATION: NM vasiliy stress w perfusion DATE: 05/25/2025 12:05 INDICATION: Abnormal echocardiogram. TECHNIQUE: Rest images were obtained following intravenous administration of 10.4 mCi Tc99m tetrofosmin (Myoview). The patient was infused intravenously with Lexiscan (regadenoson). Then, 30.6 mCi Tc99m tetrofosmin (Myoview) was administered intravenously, and stress images were obtained. Data was miguel angel nstructed into short axis and horizontal and vertical long axis SPECT images. Gated SPECT images were also obtained. COMPARISON: CT abdomen and pelvis 04/07/2025 FINDINGS: There is no definite reversible or fixed perfusion abnormality to suggest ischemia or infarction. There is no segmental wall motion abnormality. Left ventricular ejection fraction measures > 70%. IMPRESSION: 1. No definite ischemia or infarct. 2. Normal left ventricular ejection fraction measuring >70%. Reviewed, dictated and finalized at location E.
--- OUTSIDE RECORDS SUMMARY | 2025-05-25 09:54 | XMS_ITS | Clinical Summary ---
Author Organization [facility] Address [address] [place] [address] Phone Care Team Providers Care Microfilm Technician Name Role Phone Yousuf Calixto MD Primary Care Provider [phone] Allergies No known active allergies Medications verapamil [...] file Legal Sex Female 3:27 AM POLE PEELER Gender Identity Not on file Sexual Orientation [...] Zoster Immunization (2 of 3) 07/04/2016 05/09/2016 Medicare Initial AWV [id number] 02/22/2017 Diabetes: Nephropathy Screening 11/17/2019 11/16/2018, 07/31/2009, 01/27/2009 [...] ESTIMATED GLUCOSE Routine 07/31/2009 9:00 AM POLE PEELER from Last 3 Months or Most Recently Relevant to Health Maintenance Results * (ABNORMAL) Comprehensive Metabolic Panel (CMP) (11/16/2018 4:42 PM CDT) SODIUM 136 133 - 145 mmol/L 11/16/2018 5:56 PM [facility] POTASSIUM 3.4(L) 3.5 - 5.1 mmol/L 11/16/2018 5:56 PM [facility] CHLORIDE 99 96 - 108 mmol/L 11/16/2018 5:56 PM [facility] CO2, VENOUS 24 21 - 32 mmol/L 11/16/2018 5:56 PM [facility] ANION GAP 16.4 10.0 - 20.0 mmol/L 11/16/2018 5:56 PM [facility] GLUCOSE 288(H) 80 - 115 mg/dL 11/16/2018 5:56 PM [facility] BUN 29(H) 6 - 19 mg/dL 11/16/2018 5:56 PM [facility] CREATININE, BLOOD 1.10 0.40 - 1.10 mg/dL 11/16/2018 5:56 PM [facility] BUN/CREATININE RATIO 26(H) 12 - 20 ratio 11/16/2018 5:56 PM [facility] TOTAL PROTEIN 7.6 6.0 - 8.2 g/dL 11/16/2018 5:56 PM [facility] ALBUMIN 3.7 3.4 - 4.8 g/dL 11/16/2018 5:56 PM [facility] CALCIUM 10.0 8.8 - 10.0 mg/dL 11/16/2018 5:56 PM [facility] T BILI 0.6 0.0 - 1.0 mg/dL 11/16/2018 5:56 PM [facility] SGOT (AST) 17 0 - 37 U/L 11/16/2018 5:56 PM [facility] SGPT (ALT) 27 12 - 45 U/L 11/16/2018 5:56 PM [facility] ALKALINE PHOSPHATASE 89 39 - 117 U/L 11/16/2018 5:56 PM [facility] GFR, EST. NONAFRICAN 48 11/16/2018 5:56 PM [facility] Comment: Reference interval for MDRD GFR: GFR >=60: Satisfactory kidney function GFR <60: Chronic kidney disease GFR <15: Kidney failure Estimated GFR may be less reliable in patients >70yr, women, patients with serious comorbid conditions, or patients with extremes of body size, muscle mass, or nutritional status. Revised 11/18/07 (National Kidney Disease Education Program) GFR, EST. 57(L) >=60 019 5:56 PM [facility] Comment: Reference interval for MDRD GFR: GFR [...] 4:42 PM CDT 11/16/2018 4:51 PM CDT [facility] 11/16/2018 5:56 PM [facility] Venipuncture should occur prior to sulfasalazine and/or sulfapyridine administration due to the potential for falsely depressed results for ALT and AST. Glucose can be falsely depressed after administration of sulfasalazine, and falsely elevated with administration of sulfapyridine. us Yue Campos MD CHEMISTRY ORDERABLES Final Result [facility] [address] [place] [address] * [facility] SCREENING BILATERAL DIGITAL W CAD (03/25/2017 9:51 AM CDT) Anatomical Region Laterality Modality breast Bilateral Mammography 03/25/2017 9:54 AM CDT Impressions 03/25/2017 9:54 AM CDT ASSESSMENT: BI-RADS 2; BENIGN RECOMMENDATIONS: Yearly screening mammogram in 1 year. CAD used DICTATION LOCATION: [facility] Signed By: Danielito Emanuel M.D. Narrative 03/25/2017 9:54 AM CDT PATIENT HISTORY: Patient is postmenopausal. Family history of breast cancer at age 50 in paternal aunt, breast cancer at age 90 in paternal grandmother. Patient's BMI is 54.9. Last mammogram was performed 4 years and 3 months ago. REASON FOR EXAM: screening, asymptomatic. FINDINGS: [facility] SCREENING BILATERAL DIGITAL W CAD Bilateral CC and MLO view(s) were taken. Technologist: Alanis Brambila, RT(R) Prior study comparison: January 06, 2013, bilateral NMA SCR MAMMO DDI performed at [facility]. The breast tissue is average. No significant changes when compared with prior studies. Finding: Calcifications Laterality: bilateral Description: There are typically benign punctate, rim, round calcifications. Distribution is diffuse/scattered. us Yousuf Calixto MD IMG MAMMO ORDERABLES Final Resul t * (ABNORMAL) HBA1C, EST GLUCOSE (07/31/2009 9:00 AM POLE PEELER) HGB-A1C 6.5(H) 4.0 - 6.0 % [facility] Est Average Glucose 139.9 MG/DL [facility] 07/31/2009 9:00 AM POLE PEELER 07/31/2009 7:45 PM POLE PEELER us Alpesh Tay DO CHEMISTRY ORDERABLES Final Res ult [facility] [address] [place] [address] from Last 3 Months or Most Recently Relevant to Health Maintenance Insurance [employer] [facility] BENEFITS MEDICARE Advance Directives * Full Code (Latest Code Status on File) Date Activated Date Inactivated Comments 11/16/2018 4:35 PM 11/17/2018 8:40 PM CPR-Full Tr eatment: FULL ARREST: Attempt Resuscitation/CPR wit intubation and mechanical ventilation. PRE-ARREST: Use entire range of life support measures to stabilize the patient. Care Teams Microfilm Technician Relationship Specialty Start Date End Date Yousuf Calixto MD [address] [place] [address] PCP - General Family Medicine 05/18/15
--- OUTSIDE RECORDS SUMMARY | 2025-05-25 09:54 | XMS_ITS | Clinical Summary ---
Author Organization [facility] Address [address] [place] [address] Care Team Providers Care Service Unit Operator Name Role Phone Angel Escamilla MD Primary Care Provider [phone] Allergies Active Allergy Reactions Criticality Noted Date [...] mammogram ENDOSCOPY (SCAN ORDER) 10/10/2023 6:38 AM FENCE INSTALLER HELPER COLONOSCOPY 05/20/2023 6:46 AM CDT from Last [...] * ENDOSCOPY (SCAN ORDER) (10/10/2023 6:38 AM FENCE INSTALLER HELPER) Simone Solomon MD SCANNING Final Result * Colonoscopy (05/20/2023 6:46 AM CDT) Simone Solomon MD GI PROCEDURE ORDERABLES Final Result from Last 3 Months or Most Recently Relevant to Health Maintenance Insurance MEDICARE [facility] GENER[facility] - [employer] [place] [address] Care Teams Service Unit Operator Relationship Specialty Start Date End Date Angel Escamilla MD [address] [place] [address] PCP - General FAMILY PRACTICE 11/05/24
== END 2025-05-25 09:21 | disposition home or self-care (01) ==
PROVIDERS: PCP Family Medicine; Visit Provider Family Medicine
DX: R94.31 Abnormal electrocardiogram [ECG] [EKG] (principal)
CPT/HCPCS: 78452; 93017; A9502; J2785

== ENCOUNTER 2025-06-04 14:04 | Observation (INO) | payer MEDICARE, OTHER, SELFPAY ==
--- NOTE | 2025-05-09 12:27 | PC.NURSE ---
Report to the Outpatient Waiting Room, entrance under the green pavilion located off [facility], at time 11:30 AM on date _05/17/25 . Planned Procedure Time: 1:30 PM .? Time changes happen often and if your time is changed the preop area will call you the afternoon before. - You and your visitor will be asked to self-screen and do not enter if you have any COVID symptoms. Please call surgeon if you need to reschedule. - A mask is optional within the hospital at this time. Patients may have clear liquids (water, carbonated beverages, clear teas, apple juice) until 3 hours prior to surgery (10:30 AM) with a maximum of 20 ounces. - No food from midnight until time of surgery and no smoking, or chewing tobacco (or any form of nicotine). No chewing gum, candy or mints. Take only the following medications with a SIP of water on the morning of surgery: __INHALER IF NEEDED,LEVOTHYROXINE,METOPROLOL DO NOT STOP ANY OF YOUR OTHER PRESCRIPTION MEDICATIONS PRIOR TO SURGERY EXCEPT THE FOLLOWING Hold all vitamins and supplements for 3 days per anesthesiologist.LAST DOSE 05/13/25 Medications to discontinue per physician ____NONE Date to take last dose Please no make-up, nail tamazight, hairspray, perfume, deodorant, or body powder the day of surgery.? No jewelry (including any body piercings) or valuables the day of surgery, leave them at home.? Please take a shower or bath the night before, or the morning of, surgery with an antibacterial soap.? Wear comfortable, loose fitting clothing.? Children are encouraged to wear pajamas. - Jewelry must be removed prior to entering the operating room.? Rings and piercings that are not removed may be cut off. - The hospital will not accept responsibility for valuables.? - Please leave all valuables, including medications, at home the day of surgery. If you are going home after surgery, a licensed test car driver must drive you home.? - NO public transportation without another adult if you receive anesthesia. - We recommend that an adult stay with you for 24 hours following discharge. - We also recommend that you do not drive, make important decision, drink alcoholic beverages, or take any drugs that were not prescribed by your health care provider for at least 24 hours after your discharge time. For Pediatric surgeries, we recommend two adults accompany the child home. Follow any additional instructions given to you from your surgeon. Telephone instructions given to __PATIENT and asked if any additional questions and then verbalized understanding. Patient advised to call surgeon office or pre surgery nurse liaison [phone] if any additional questions.
[2025-05-09 12:59] VITALS: BMI 44.4
--- OUTSIDE RECORDS SUMMARY | 2025-05-17 02:05 | XMS_ITS | Clinical Summary ---
Author Organization [facility] Address [address] [place] [address] Phone Care Team Providers Care Correctional Agency Director Name Role Phone Yousuf Calixto MD Primary Care Provider [phone] Allergies No known active allergies Medications verapamil [...] on file Legal Sex Female 3:27 AM RADIO MAINTAINER Gender Identity Not on file Sexual Orientation [...] 11/17/2019 11/16/2018, 07/31/2009, 01/27/2009 Influenza Immunization (#1) 04/25/202504/25, 05/02/2016, 05/29/2015, Additional history exists SARS-COV-2 Immunization ( season) 2025 05/29/2021, 11/03/2020, 10/13/2020 DTaP/Tdap/Td Immunization Discontinued 10/26/2014, [...] W/ ESTIMATED GLUCOSE Routine 07/31/2009 9:00 AM RADIO MAINTAINER from Last 3 Months or Most Recently Relevant to Health Maintenance Results * (ABNORMAL) Comprehensive Metabolic Panel (CMP) (11/16/2018 4:42 PM CDT) SODIUM 136 133 - 145 mmol/L 11/16/2018 5:[address] [facility] POTASSIUM 3.4(L) 3.5 - 5.1 mmol/L 11/16/2018 5:[address] [facility] CHLORIDE 99 96 - 108 mmol/L 11/16/2018 5:[address] [facility] CO2, VENOUS 24 21 - 32 mmol/L 11/16/2018 5:[address] [facility] ANION GAP 16.4 10.0 - 20.0 mmol/L 11/16/2018 5:[address] [facility] GLUCOSE 288(H) 80 - 115 mg/dL 11/16/2018 5:[address] [facility] BUN 29(H) 6 - 19 mg/dL 11/16/2018 5:[address] [facility] CREATININE, BLOOD 1.10 0.40 - 1.10 mg/dL 11/16/2018 5:[address] [facility] BUN/CREATININE RATIO 26(H) 12 - 20 ratio 11/16/2018 5:[address] [facility] TOTAL PROTEIN 7.6 6.0 - 8.2 g/dL 11/16/2018 5:[address] [facility] ALBUMIN 3.7 3.4 - 4.8 g/dL 11/16/2018 5:[address] [facility] CALCIUM 10.0 8.8 - 10.0 mg/dL 11/16/2018 5:[address] [facility] T BILI 0.6 0.0 - 1.0 mg/dL 11/16/2018 5:[address] [facility] SGOT (AST) 17 0 - 37 U/L 11/16/2018 5:[address] [facility] SGPT (ALT) 27 12 - 45 U/L 11/16/2018 5:[address] [facility] ALKALINE PHOSPHATASE 89 39 - 117 U/L 11/16/2018 5:[address] [facility] GFR, EST. NONAFRICAN 48 11/16/2018 5:[address] [facility] Comment: Reference interval for MDRD GFR: GFR >=60: Satisfactory kidney function GFR <60: Chronic kidney disease GFR <15: Kidney failure Estimated GFR may be less reliable in patients >70yr, women, patients with serious comorbid conditions, or patients with extremes of body size, muscle mass, or nutritional status. Revised 11/18/07 (National Kidney Disease Education Program) GFR, EST. 57(L) >=60 019 5:[address] [facility] Comment: Reference interval for MDRD GFR: GFR [...] 4:42 PM CDT 11/16/2018 4:51 PM CDT [facility] - 11/16/2018 5:56 PM T Venipuncture should occur prior to sulfasalazine and/or sulfapyridine administration due to the potential for falsely depressed results for ALT and AST. Glucose can be falsely depressed after administration of sulfasalazine, and falsely elevated with administration of sulfapyridine. us Yue Campos MD CHEMISTRY ORDERABLES Final Result [facility] [address] [place] [address] * JAME SCREENING BILATERAL DIGITAL W CAD (03/25/2017 9:51 AM CDT) Anatomical Region Laterality Modality breast Bilateral Mammography 03/25/2017 9:54 AM CDT Impressions 03/25/2017 9:54 AM CDT ASSESSMENT: BI-RADS 2; BENIGN RECOMMENDATIONS: Yearly screening mammogram in 1 year. CAD used DICTATION LOCATION: [facility] Signed By: Danielito Emanuel M.D. Narrative 03/25/2017 9:54 AM CDT PATIENT HISTORY: Patient is postmenopausal. Family history of breast cancer at age 50 in paternal aunt, breast cancer at age 90 in paternal grandmother. Patient's BMI is 54.9. Last mammogram was performed 4 years and 3 months ago. REASON FOR EXAM: screening, asymptomatic. FINDINGS: [facility] SCREENING BILATERAL DIGITAL W CAD Bilateral CC and MLO view(s) were taken. Technologist: Alanis Brambila, RT(R) Prior study comparison: January 06, 2013, bilateral NMA SCR MAMMO DDI performed at [facility]. The breast tissue is average. No significant changes when compared with prior studies. Finding: Calcifications Laterality: bilateral Description: There are typically benign punctate, rim, round calcifications. Distribution is diffuse/scattered. us Yousuf Calixto MD IMG MAMMO ORDERABLES Final Resul t * (ABNORMAL) HBA1C, EST GLUCOSE (07/31/2009 9:00 AM RADIO MAINTAINER) HGB-A1C 6.5(H) 4.0 - 6.0 % [facility] Est Average Glucose 139.9 MG/DL [facility] 07/31/2009 9:00 AM RADIO MAINTAINER 07/31/2009 7:45 PM RADIO MAINTAINER us Alpesh Tay DO CHEMISTRY ORDERABLES Final Res ult [facility] [address] [place] [address] from Last 3 Months or Most Recently [...] measures to stabilize the patient. Care Teams Correctional Agency Director Relationship Specialty Start Date End Date Yousuf Calixto MD [address] [place] [address] PCP - General Family Medicine 05/18/15
--- OUTSIDE RECORDS SUMMARY | 2025-05-17 02:05 | XMS_ITS | Clinical Summary ---
Author Organization [facility] Address [address] [place] [address] Care Team Providers Care Job Order Clerk Name Role Phone Angel Escamilla MD Primary Care Provider [phone] Allergies Active Allergy Reactions Criticality Noted Date [...] 1 TIME WEEKLY FOR 4 WEEKS Active Family History Medical History Relation Comments [...] 07/04/2016 05/09/2016 COVID-19 Vaccine (1 - season) 2025 Mammogram Screening 01/14/2026 01/15/2024, 11/19/2022, 06/07/2020, Additional [...] mammogram ENDOSCOPY (SCAN ORDER) 10/10/2023 6:38 AM BRAKE OPERATOR COLONOSCOPY 05/20/2023 6:46 AM CDT from [...] 2 - BENIGN FINDING(S) Ordered By: NILDA LYN Interpreted By: Percy Loza MD, 01/15/2024 2:54 [...] * ENDOSCOPY (SCAN ORDER) (10/10/2023 6:38 AM BRAKE OPERATOR) Simone Solomon MD SCANNING Final Result * Colonoscopy (05/20/2023 6:46 AM CDT) Simone Solomon MD GI PROCEDURE ORDERABLES Final Result from Last 3 Months or Most Recently Relevant to Health Maintenance Insurance MEDICARE [facility] [place] [address] Care Teams Job Order Clerk Relationship Specialty Start Date End Date Angel Escamilla MD [address] [place] [address] PCP - General FAMILY PRACTICE 11/05/24
--- NOTE | 2025-05-30 11:50 | PC.NURSE ---
[facility] has started construction of its new state of the art ER which will open Spring 2026. With this, we anticipate parking may be a challenge for some our surgical patients and families. Parking spaces are limited but are available for all Surgical, obstetrics, and ER patients sharing this lot. If you arrive and find you are having a hard time finding a parking space, please note that we understand the challenges, please drive around the hospital and park near Hospital Entrance 1. When you enter this entrance, you can ask a volunteer to direct or take you back to the surgical waiting area to check in. We appreciate everyone?s understanding of these expected challenges while we build for your future. Report to the Outpatient Waiting Room, entrance under the green pavilion located off [address], at time _10:30 AM on date _06/03/25 . Planned Procedure Time: __12:30 PM .? Time changes happen often and if your time is changed the preop area will call you the afternoon before. - You and your visitor will be asked to self-screen and do not enter if you have any COVID symptoms. Please call surgeon if you need to reschedule. - A mask is optional within the hospital at this time. Patients may have clear liquids (water, carbonated beverages, clear teas, apple juice) until 3 hours prior to surgery( 9:30 AM) with a maximum of 20 ounces. - No food from midnight until time of surgery and no smoking, or chewing tobacco (or any form of nicotine). No chewing gum, candy or mints. - Take only the following medications with a SIP of water on the morning of surgery: __INHALER IF NEEDED, LEVOTHYROXINE,METOPROLOL DO NOT STOP ANY OF YOUR OTHER PRESCRIPTION MEDICATIONS PRIOR TO SURGERY EXCEPT THE FOLLOWING Hold all vitamins and supplements for 3 days per anesthesiologist.LAST DOSE 05/30/25 Medications to discontinue per physician NONE Please no make-up, nail nigerian, hairspray, perfume, deodorant, or body powder the day of surgery.? No jewelry (including any body piercings) or valuables the day of surgery, leave them at home.? Please take a shower or bath the night before, or the morning of, surgery with an antibacterial soap.? Wear comfortable, loose fitting clothing.? Children are encouraged to wear pajamas. - Jewelry must be removed prior to entering the operating room.? Rings and piercings that are not removed may be cut off. - The hospital will not accept responsibility for valuables.? - Please leave all valuables, including medications, at home the day of surgery. If you are going home after surgery, a licensed truck driver salesperson must drive you home.? - NO public transportation without another adult if you receive anesthesia. - We recommend that an adult stay with you for 24 hours following discharge. - We also recommend that you do not drive, make important decision, drink alcoholic beverages, or take any drugs that were not prescribed by your health care provider for at least 24 hours after your discharge time. For Pediatric surgeries, we recommend two adults accompany the child home. Follow any additional instructions given to you from your surgeon. Telephone instructions given to __PATIENT and asked if any additional questions and then verbalized understanding. Patient advised to call surgeon office or pre surgery nurse liaison [phone] if any additional questions.
--- NOTE | 2025-05-30 11:55 | PC.NURSE ---
STATES NO CHANGE IN HEALTH HX STRESS TEST DONE 05/25/25 IN EMR
[2025-06-03] VITALS (14 sets, daily range): BP systolic 111–1134; BP diastolic 61–93; PULSE 73–87; RESP 14–181; TEMP 35.7–36.6; O2SAT 93–100; BMI 43.5
--- OUTSIDE RECORDS SUMMARY | 2025-06-03 02:17 | XMS_ITS | Clinical Summary ---
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 Gender Identity Not on file Sexual [...] W/ ESTIMATED GLUCOSE Routine 07/31/2009 9:00 AM TABLE LEVER OPERATOR from Last 3 Months or Most Recently Relevant to Health Maintenance Results * (ABNORMAL) Comprehensive Metabolic Panel (CMP) (11/16/2018 4:42 PM CDT) SODIUM 136 133 - 145 mmol/L 11/16/2018 5:56 PM [facility] POTASSIUM 3.4(L) 3.5 - 5.1 mmol/L 11/16/2018 5:56 PM [facility] CHLORIDE 99 96 - 108 mmol/L 11/16/2018 5:56 PM [facility] CO2, VENOUS 24 21 - 32 mmol/L 11/16/2018 5:56 PM [facility] ANION GAP 16.4 10.0 - 20.0 mmol/L 11/16/2018 5:56 PM [facility] GLUCOSE 288(H) 80 - 115 mg/dL 11/16/2018 5:56 PM [facility] BUN 29(H) 6 - 19 mg/dL 11/16/2018 5:56 PM [facility] CREATININE, BLOOD 1.10 0.40 - 1.10 mg/dL 11/16/2018 5:56 PM [facility] BUN/CREATININE RATIO 26(H) 12 - 20 ratio 11/16/2018 5:56 PM [facility] TOTAL PROTEIN 7.6 6.0 - 8.2 g/dL 11/16/2018 5:56 PM [facility] ALBUMIN 3.7 3.4 - 4.8 g/dL 11/16/2018 5:56 PM [facility] CALCIUM 10.0 8.8 - 10.0 mg/dL 11/16/2018 5:56 PM [facility] T BILI 0.6 0.0 - 1.0 mg/dL 11/16/2018 5:56 PM [facility] SGOT (AST) 17 0 - 37 U/L 11/16/2018 5:56 PM [facility] SGPT (ALT) 27 12 - 45 U/L 11/16/2018 5:56 PM [facility] ALKALINE PHOSPHATASE 89 39 - 117 U/L 11/16/2018 5:56 PM [facility] GFR, EST. NONAFRICAN 48 11/16/2018 5:56 PM [facility] Comment: Reference interval for MDRD GFR: GFR >=60: Satisfactory kidney function GFR <60: Chronic kidney disease GFR <15: Kidney failure Estimated GFR may be less reliable in patients >70yr, women, patients with serious comorbid conditions, or patients with extremes of body size, muscle mass, or nutritional status. Revised 11/18/07 (National Kidney Disease Education Program) GFR, EST. 57(L) >=60 019 5:56 PM [facility] Comment: Reference interval for MDRD GFR: GFR [...] 4:42 PM CDT 11/16/2018 4:51 PM CDT [facility] 11/16/2018 5:56 PM [facility] Venipuncture should occur prior to sulfasalazine and/or sulfapyridine administration due to the potential for falsely depressed results for ALT and AST. Glucose can be falsely depressed after administration of sulfasalazine, and falsely elevated with administration of sulfapyridine. us Yue Campos MD CHEMISTRY ORDERABLES Final Result [facility] [address] [place] [address] * [facility] SCREENING BIL[facility]AL DIGITAL W CAD (03/25/2017 9:51 AM CDT) Anatomical Region Laterality Modality breast Bilateral Mammography 03/25/2017 9:54 AM CDT Impressions 03/25/2017 9:54 AM CDT ASSESSMENT: BI-RADS 2; BENIGN RECOMMENDATIONS: Yearly screening mammogram in 1 year. CAD used DICTATION LOCATION: [facility][1] Signed By: Danielito Emanuel M.D. Narrative 03/25/2017 9:54 AM CDT PATIENT HISTORY: Patient is postmenopausal. Family history of breast cancer at age 50 in paternal aunt, breast cancer at age 90 in paternal grandmother. Patient's BMI is 54.9. Last mammogram was performed 4 years and 3 months ago. REASON FOR EXAM: screening, asymptomatic. FINDINGS: [facility] SCREENING B[facility]ATERAL DIGITAL W CAD Bilateral CC and MLO view(s) were taken. Technologist: Alanis Brambila, RT(R) Prior study comparison: January 06, 2013, bilateral NMA SCR MAMMO DDI performed at [facility]. The breast tissue is average. No significant changes when compared with prior studies. Finding: Calcifications Laterality: bilateral Description: There are typically benign punctate, rim, round calcifications. Distribution is diffuse/scattered. us Yousuf Calixto MD IMG MAMMO ORDERABLES Final Resul t * (ABNORMAL) HBA1C, EST GLUCOSE (07/31/2009 9:00 AM TABLE LEVER OPERATOR) HGB-A1C 6.5(H) 4.0 - 6.0 % [facility] Est Average Glucose 139.9 MG/DL [facility] 07/31/2009 9:00 AM TABLE LEVER OPERATOR 07/31/2009 7:45 PM TABLE LEVER OPERATOR us Alpesh Tay DO CHEMISTRY ORDERABLES Final Res ult [facility] [address] [place] [address] from Last 3 Months or Most Recently Relevant to Health Maintenance Insurance [employer] [facility] BENEFITS MEDICARE Advance Directives * Full Code (Latest Code Status on File) Date Activated Date Inactivated Comments 11/16/2018 4:35 PM 11/17/2018 8:40 PM CPR-Full Tr eatment: FULL ARREST: Attempt Resuscitation/CPR wit intubation and mechanical ventilation. PRE-ARREST: Use entire range of life support measures to stabilize the patient. Care Teams Flight Line Service Attendant Relationship Specialty Start Date End Date Yousuf Calixto MD [address] [place] [address] PCP - General Family Medicine 05/18/15
--- OUTSIDE RECORDS SUMMARY | 2025-06-03 02:17 | XMS_ITS | Clinical Summary ---
Author Organization [facility] Address [address] [place] [address] Care Team Providers Care Management Lead Name Role Phone Angel Escamilla MD Primary Care Provider [phone] Allergies Active Allergy Reactions Criticality Noted Date [...] (2 of 3) 07/04/2016 05/09/2016 COVID-19 Vaccine ( - season) 2025 Influenza Adult (#1) 2025 05/10/2017 Mammogram Screening 01/14/2026 01/15/2024, 11/19/2022, 06/07/2020, [...] mammogram ENDOSCOPY (SCAN ORDER) 10/10/2023 6:38 AM SILK SPOOLER COLONOSCOPY 05/20/2023 6:46 AM CDT from Last [...] * ENDOSCOPY (SCAN ORDER) (10/10/2023 6:38 AM SILK SPOOLER) Simone Solomon MD SCANNING Final Result * Colonoscopy (05/20/2023 6:46 AM CDT) Simone Solomon MD GI PROCEDURE ORDERABLES Final Result from Last 3 Months or Most Recently Relevant to Health Maintenance Insurance MEDICARE [facility] GENERIC - [employer] [place] [address] Care Teams Management Lead Relationship Specialty Start Date End Date Angel Escamilla MD [address] [place] [address] PCP - General FAMILY PRACTICE 11/05/24
[2025-06-03] MEDS: LACTATED RINGERS 1,000 ML 30 ML IV CONT ×2 (11:15→17:13)
[2025-06-03] MEDS: ACETAMINOPHEN 500 MG TABLET 1000 MG PO (11:17)
[2025-06-03] MEDS: KETOROLAC 15 MG/ML VIAL (*BKC) IV PUSH (11:17)
--- NOTE | 2025-06-03 12:34 | WPDHPUPDATE1 ---
History and Physical Update Update Date/Time: 06/03/25 12:34 History and Physical has been reviewed, including an updated exam of the patient. There are NO changes in the patient's condition. Risks, benefits, and alternatives have been discussed and questions answered. Patient agrees to proceed with procedure.
--- NOTE | 2025-06-03 12:34 | PM.IMHP ---
H&P: HPI History of Present Illness Date/Time: 06/03/25 12:34 Chief Complaint: Incarcerated umbilical hernia Narrative: This is a 75-year-old woman who presents for incarcerated umbilical hernia repair. She reports no changes since last seen in the office. Review of Systems Review of Systems: All systems reviewed & are unremarkable except as noted in HPI and below Constitutional: Constitutional: Denies chills, Denies fever(s), Denies headache(s) and Denies weight loss Eyes: Eyes: Denies change in vision ENT: Denies dizziness, Denies headache(s), Denies neck mass and Denies throat swelling Cardiovascular: Cardiovascular: Denies chest pain, Denies lightheadedness and Denies dyspnea Respiratory: Respiratory: Denies cough, Denies dyspnea and Denies wheezing Gastrointestinal: Gastrointestinal: Denies abdominal pain, Denies change in bowel habits, Denies nausea and Denies vomiting Genitourinary: Genitourinary: Denies hematuria and Denies dysuria Musculoskeletal: Musculoskeletal: Reports as per HPI Integumentary/Breasts: Skin/Breast: Reports as per HPI Neurologic: Denies dizziness and Denies headache(s) Allergic/Immunologic: Allergic/Immunologic: Denies throat swelling and Denies wheezing PMFSH Past Medical History Medical History (Updated 05/26/25 @ 11:33 by Jose Zapata DO) Thyroid disorder Arthritis Left knee DJD Right knee DJD COPD (chronic obstructive pulmonary disease) Proteinuria CKD (chronic kidney disease) Type 2 diabetes mellitus BMI greater than 40 Degenerative joint disease of knee Left knee pain Right knee pain HTN (hypertension) Family History Family History (Updated 04/28/25 @ 09:10 by Shaina Mcgowan MA) Mother Hypertension Father Hypertension Other Alcoholism Diabetes mellitus History of cancer Social History Social History (Updated 04/28/25 @ 09:17 by Shaina Mcgowan MA) Smoking packs per day: 1 Smoking cigarettes per day: 20.0 Years smoked: 20 Smoking pack-years: 20.00 Smoking status: Former smoker Tobacco type: cigarettes Smoking end date: 08/25/79 Alcohol intake: never Substance use: never Substance use type: does not use Do You Feel Safe in your Home?: Yes Lack of Transportation: No Lack of Food: Never True Current Housing: I Have Housing Concerned About Future Housing: No Difficulty Paying Gas/Electric Bills: No Difficulty Paying for Meds: No Currently Unemployed: No Education: Master's Degree or Higher Difficulty w/ Childcare or Family Care: No Living arrangements: with family Gender identity (if verbalized by the patient): Female Spiritual care concerns: No Meds Home Medications and Allergies Home Medications ?Medication ?Instructions ?Recorded ?Confirmed ?Type atorvastatin 10 mg tablet (Lipitor) 10 mg PO DAILY 09/17/24 05/26/25 History fluticasone propionate 220 1 puff inhalation Q12H 09/17/24 05/26/25 History mcg/actuation HFA aerosol inhaler (Flovent HFA) fluticasone propionate 50 2 spray intranasal DAILY 09/17/24 05/26/25 History mcg/actuation nasal spray,suspension furosemide 20 mg tablet 20 mg PO QAM 09/17/24 05/26/25 History levothyroxine 125 mcg capsule 125 mcg PO DAILY 09/17/24 05/26/25 History losartan 100 0.25 tablet PO DAILY 09/17/24 05/26/25 History mg-hydrochlorothiazide 25 mg tablet metoprolol tartrate 50 mg tablet 25 mg PO DAILY 09/17/24 05/26/25 History pantoprazole 20 mg tablet,delayed 20 mg PO QAM 09/17/24 05/26/25 History release potassium chloride 10 mEq 10 meq PO DAILY 09/17/24 05/26/25 History tablet,extended release (Klor-Con) cholecalciferol (vitamin D3) 50 2,000 unit PO DAILY 05/09/25 05/26/25 History mcg (2,000 unit) capsule cranberry fruit 450 mg tablet 450 mg PO DAILY 05/09/25 05/26/25 History (cranberry) krill oil 500 mg capsule 500 mg PO DAILY 05/09/25 05/26/25 History tirzepatide 7.5 mg/0.5 mL 7.5 mg subcut WEEKLY 05/09/25 05/26/25 History subcutaneous pen injector (Pollo) vit C 250 mg-vit E 90 mg-zinc 40 1 tablet PO ONCE 05/09/25 05/26/25 History mg-copper 1 [id number] capsule (PreserVision AREDS-2) finerenone 10 mg tablet (Kerendia) See Rx Instructions .Route 05/27/25 05/30/25 Rx .COMPLEX #30 tabs Allergies Allergy/AdvReac Type Severity Reaction Status Date / Time dapagliflozin (From [facility]) AdvReac Intermediate Rash Verified 06/03/25 11:33 Vital Signs Vital Signs - 24 hr 06/03/25 10:30 Temperature 97.1 F L Pulse Rate 79 Respiratory Rate 18 Blood Pressure 142/93 H Pulse Oximetry 100 Oxygen Delivery Room Air Exam Const: General: no acute distress and alert Orientation/consciousness: patient oriented x3 HENMT: Head: normocephalic and atraumatic Ears: hearing grossly normal bilaterally Face/Nose/Sinus: Normal nares present Mouth: Yes Normal oral and palatal mucosa present Eyes: Periorbital: periorbital findings normal Sclera: sclerae normal EOM: EOMs intact bilaterally Neck: Neck: normal visual inspection, no lymphadenopathy and trachea midline Chest: Chest palpation & inspection: normal inspection of the chest Resp: Effort & Inspection: normal respiratory effort Auscultation: clear to auscultation bilaterally Cardio: Jugular venous distension: no JVD Rate: regular rate Rhythm: regular rhythm Heart sounds: S1 normal heart sound present and S2 normal heart sound present Peripheral pulses: Peripheral pulses 2+ throughout GI: Inspection: normal to inspection GI Palp: Yes Soft to palpation, No Tenderness to palpation present (GI), No Guarding due to palpation present (GI), Yes Hernia present umbilical 3-10 cm and No Rebound tenderness present Percussion: Yes normal to percussion Auscultation: normal bowel sounds : General: Yes no CVA tenderness Back/Spine/Pelvis: Back: no CVA tenderness Neuro: General: patient oriented x3, no focal motor deficits and CN's II-XI intact bilaterally Cognition (Neuro): normal cognition Speech: normal speech Motor exam (neuro): 5/5 motor strength present throughout Extrem: General: capillary refill normal and no clubbing, cyanosis or edema Assessment and Plan Assessment and plan (1) Incarcerated umbilical hernia: Code(s): K42.0 - Umbilical hernia with obstruction, without gangrene Status: Acute Assessment and Plan: I have recommended laparoscopic incarcerated umbilical hernia repair with mesh, da Rosalie assisted. I have discussed the procedure, risks, benefits, and alternatives with the patient. All questions answered. No changes since last seen in office.
--- NOTE | 2025-06-03 13:00 | SUR.PREOP ---
1300- Patient aware procedure start time delayed. Patient denying needs at this time.
--- NOTE | 2025-06-03 14:27 | WPDANESEPPF ---
Anes - Initial Pre Proc Eval Procedure: Operation Date: 06/03/25 12:30 Proposed Procedures p Laparoscopic Incarcerated Umbilical Hernia Repair with Mesh, DaVinci Assisted - Yaya Nielsen DO Date/Time: 06/03/25 14:27 Surgeon: Yaya Nielsen DO Pre Op Diagnosis: Incarcerated Umb Hernia Patient Data Age: 75 Gender: F Height: 1.57 m Weight: 108 kg Last Vital Signs Temp 97.1 F L 06/03/25 10:30 Pulse 79 06/03/25 10:30 Resp 18 06/03/25 10:30 BP 142/93 H 06/03/25 10:30 Pulse Ox 100 06/03/25 10:30 O2 Del Method Room Air 06/03/25 10:30 Allergies Allergy/AdvReac Type Severity Reaction Status Date / Time dapagliflozin (From [facility]) AdvReac Intermediate Rash Verified 06/03/25 11:33 Home Medications ?Medication ?Instructions ?Recorded ?Confirmed ?Type atorvastatin 10 mg tablet (Lipitor) 10 mg PO DAILY 09/17/24 05/26/25 History fluticasone propionate 220 1 puff inhalation Q12H 09/17/24 05/26/25 History mcg/actuation HFA aerosol inhaler (Flovent HFA) fluticasone propionate 50 2 spray intranasal DAILY 09/17/24 05/26/25 History mcg/actuation nasal spray,suspension furosemide 20 mg tablet 20 mg PO QAM 09/17/24 05/26/25 History levothyroxine 125 mcg capsule 125 mcg PO DAILY 09/17/24 05/26/25 History losartan 100 0.25 tablet PO DAILY 09/17/24 05/26/25 History mg-hydrochlorothiazide 25 mg tablet metoprolol tartrate 50 mg tablet 25 mg PO DAILY 09/17/24 05/26/25 History pantoprazole 20 mg tablet,delayed 20 mg PO QAM 09/17/24 05/26/25 History release potassium chloride 10 mEq 10 meq PO DAILY 09/17/24 05/26/25 History tablet,extended release (Klor-Con) cholecalciferol (vitamin D3) 50 2,000 unit PO DAILY 05/09/25 05/26/25 History mcg (2,000 unit) capsule cranberry fruit 450 mg tablet 450 mg PO DAILY 05/09/25 05/26/25 History (cranberry) krill oil 500 mg capsule 500 mg PO DAILY 05/09/25 05/26/25 History tirzepatide 7.5 mg/0.5 mL 7.5 mg subcut WEEKLY 05/09/25 05/26/25 History subcutaneous pen injector (Mounjaro) vit C 250 mg-vit E 90 mg-zinc 40 1 tablet PO ONCE 05/09/25 05/26/25 History mg-copper 1 [id number] capsule (PreserVision AREDS-2) finerenone 10 mg tablet (Kerendia) See Rx Instructions .Route 05/27/25 05/30/25 Rx .COMPLEX #30 tabs Laboratory Tests 06/03/25 06/03/25 11:08 11:11 POC Capillary Glucose 96 mg/dl (65-105) Blood Type O Positive Antibody Screen Negative Patient hx anesthesia problems: none Family hx anesthesia problems: none Results Review: All pre-operative results and documents have been reviewed as part of the pre-operative evaluation. [facility] Past Medical History Medical History Thyroid disorder Arthritis Left knee DJD Right knee DJD COPD (chronic obstructive pulmonary disease) Proteinuria CKD (chronic kidney disease) Type 2 diabetes mellitus BMI greater than 40 Degenerative joint disease of knee Left knee pain Right knee pain HTN (hypertension) Family History Family History Mother Hypertension Father Hypertension Other Alcoholism Diabetes mellitus History of cancer Social History Social History Smoking packs per day: 1 Smoking cigarettes per day: 20.0 Years smoked: 20 Smoking pack-years: 20.00 Smoking status: Former smoker Tobacco type: cigarettes Smoking end date: 08/25/79 Alcohol intake: never Substance use: never Substance use type: does not use Do You Feel Safe in your Home?: Yes Lack of Transportation: No Lack of Food: Never True Current Housing: I Have Housing Concerned About Future Housing: No Difficulty Paying Gas/Electric Bills: No Difficulty Paying for Meds: No Currently Unemployed: No Education: Master's Degree or Higher Difficulty w/ Childcare or Family Care: No Living arrangements: with family Gender identity (if verbalized by the patient): Female Spiritual care concerns: No Anes - Eval Final PreProcedure Day of Procedure 06/03/25 14:27 Patient weight: morbidly obese Lungs: normal air movement Airway: Mallampati scale class II Neurological: alert and oriented Last oral intake: >/= 8 hours ASA classification: III Emergent: no Anesthetic plan: proceed Anesthesia type and monitoring: general ETT and standard monitoring Results Review: All pre-operative results and documents have been reviewed as part of the pre-operative evaluation. Hyperlipidemia, DM fsbs 96, COPD, CKD, ex smoker quit 1979. Pt had stress test 05/2025, nml LVEF, no ischemia. Informed Consent: The patient's anesthetic plan and its attendant risks and benefits were discussed with the patient/family/POA. Questions were solicited and answers provided to the satisfaction of the patient/family/POA.
[2025-06-03] MEDS: ceFAZolin 2 GM in SODIUM CHLORIDE 0.9% IV 50 ML 100 ML IVPB (14:40)
--- NOTE | 2025-06-03 16:47 | S_PTH ---
PATIENT: Kiah Del Cid LOC: [id number] U#:[id number] AGE/SX: 75/F ROOM: 256 RE06/04/[address]: Yaya Nielsen DO : 1950 BED: 01 DIS: 06/05/2025 SPEC #: [id number] RECD: 06/06/25 08:58 STATUS: GEOVANNA REAspen #: [id number] TREMAYNE: 06/03/25 16:[address]: Yaya Nielsen DEPT: [facility] Surgical RECD BY: Laury Sierra ENTERED: 06/06/25 09:03 SP TYPE: Surgical OTHR DR: Angel Escamilla MD Tissues: A - Hernia Sac Procedures: Gross and Microscopic Level 2 Hematoxylin and Eosin Stain
--- NOTE | 2025-06-03 17:12 | P.OP_ITS ---
Procedure Note - Detailed Date of Procedure 06/03/25 Pre-op Diagnosis Incarcerated Umbilical Hernia Post-op Diagnosis Same (6 cm incarcerated umbilical hernia) Procedure Performed Laparoscopic 6 cm incarcerated umbilical hernia repair with mesh, da Rosalie assisted Surgeon Yaya Nielsen, DO Anesthesia General and Local (0.5% bupivacaine with epinephrine) Indications this is a 75-year-old woman who presented with an umbilical hernia that has recently become more painful. She has had the hernia for close to 40 years but it had not bothered her much until recently. She also has recently been losing weight and prior to this she was not a good surgical candidate. With her weight loss her current body mass index is below 45. She was found to have an incarcerated umbilical hernia measuring about [address] had been performed which showed evidence of small bowel within the hernia but not causing an obstruction. The hernia was unable to be reduced on exam. Discussions were made with the patient about treatment options and decision was made to proceed with robotic assisted laparoscopic incarcerated umbilical hernia repair with mesh. Findings Robotic assisted laparoscopic 6 cm incarcerated umbilical hernia repair with mesh was performed. The patient was found to have a large amount of contents contained within the hernia. There was a large amount of omentum as well as multiple loops of small bowel. Part of the omentum was able to be reduced and then this allowed me to carefully reduce the small bowel. The small bowel all appeared healthy and viable. The omentum had to be transected using a vessel sealer to reduce most of the omentum but leave part of it with the hernia sac. I was then able to excise the hernia sac along with this remaining portion of the omentum. The hernia sac and omentum were sent to the lab for pathology. The hernia defect measured [address] 20 cm x 15 cm mesh with Echo 2 positioning device was used for repair. This was performed as an robotic intraperitoneal onlay mesh technique. The mesh was secured in place circumferentially using 2-0 Stratafix running absorbable suture. no other significant intra-abdominal abnormalities were noted. Description of Procedure Procedure as well as risks, benefits, and alternatives were discussed with the patient. Written consent was obtained and placed in chart prior to procedure. Patient was brought back to surgical suite. She was placed supine on operating table. Time-out was done to confirm patient and procedure. she was then intubated by the anesthesia department. A bump was placed under her left hip, and the bed was flexed slightly to extend the space between her costal margin and iliac crest. her abdomen was prepped and draped in sterile fashion using chlorhexidine prep. A 5 millimeter incision was made in the left upper quadrant, and a 5 millimeter Optiview trocar was advanced through the abdominal layers under direct visualization. Once inside the abdominal cavity, carbon dioxide insufflation was used to create a pneumoperitoneum. her abdomen was inspected. An 8 millimeter incision was made in the left lower quadrant, and an 8 millimeter robotic trocar was placed under direct visualization. Another 8 millimeter incision was made in the left lateral abdomen, and an 8 millimeter robotic trocar was placed under direct visualization. 0.5% bupivacaine with epinephrine was infiltrated around each port site. The 5 millimeter port was removed, and a 12 mm robotic trocar was placed under direct visualization. The robotic arms were brought up to the patient's bedside and secured to the ports. The camera and instruments were inserted, and I then moved over to the robotic console and took control of the camera and instruments. After careful thorough inspection of the abdominal cavity, I began my dissection at the hernia. 2 caudier graspers were used to gently retract on the omentum and reduce the omentum from within the hernia defect. The small bowel that was going up into the hernia was also gently retracted and reduced completely from within the hernia defect. There was still some omentum that was very tethered into the hernia sac and this was going deep within the subcutaneous tissue. I used vessel sealer to help with hemostasis as I dissected the omentum free. I then eventually ended up transecting the omentum where I could easily visualize it and left the remainder portion of the omentum with the hernia sac. The hernia sac was then carefully dissected free and excised completely along with that portion of the omentum. This was then placed in the left upper quadrant to be removed at the conclusion of the procedure. I then measured the hernia size. The hernia measured 6 cm. The fascia was closed using a 1-Stratafix running suture in a vertical fashion. A Ventralight ST 20 cm x 15 cm mesh with Echo 2 positioning device was then placed within the abdominal cavity. This was oriented vertically with the mesh centered on the hernia defect. The mesh was then secured circumferentially to the abdominal wall using 2-0 Stratafix running absorbable suture. The repair was inspected, and one final inspection was made around the abdominal cavity. The robotic instruments were then removed, and the robotic arms were disengaged from the trocars. an Endo-Catch bag was then placed through the left upper quadrant port and the hernia sac and omentum were placed within the Endo- Catch bag. The Endo-Catch bag was then removed through the 12 mm port site. The fascia of the 12 mm port site was then approximated using an 0 Vicryl suture with a Michael-Laura cone. The ports were then removed under direct visualization, the camera was removed, and the pneumoperitoneum was released. The skin of the incisions was then approximated using 4-0 Monocryl subcuticular suture. Exofin glue was then applied on top. The patient was then awakened from anesthesia, extubated, and transferred to recovery. Implants Ventralight ST 20 cm x 15 cm mesh with Echo 2 positioning device Estimated Blood Loss 20 Pathology Yes ( hernia sac and omentum) Complications No immediate complications Condition Stable Disposition Observation [facility] Billing Surgery - Charge Forward: Surgery Billing
[2025-06-03] MEDS: fentaNYL CITRATE INJ (*CRX) 100 MCG/2 ML VIAL 25 MCG IV PUSH ×3 (17:54→18:22)
--- NOTE | 2025-06-03 18:39 | ADMGEN ---
This patient, Kiah Del Cid, was admitted to -. Patient/family oriented to hospital policies and general routines including ID bracelet, bed and alarms, visiting hours, pain management, procedures, bathroom and other care routines, personal items, smoking policy, room service/diet, and visiting hours. Information on how to activate the Rapid Response Team has been discussed. Patient/Family are encouraged to report perceived risks to care and to ask questions if they do not understand what they are told or what they should do.
[2025-06-03] MEDS: HYDROmorphone HCL INJ (*CRX) 1 MG/ML SYR IV PUSH ×2 (19:50→22:36)
[2025-06-03] MEDS: IBUPROFEN 400 MG TABLET 800 MG PO (22:37)
[2025-06-04] VITALS (11 sets, daily range): BP systolic 91–138; BP diastolic 51–70; PULSE 74–105; RESP 16–18; TEMP 36.3–36.5; O2SAT 90–98
[2025-06-04] MEDS: HYDROmorphone HCL INJ (*CRX) 1 MG/ML SYR IV PUSH ×3 (01:16→13:09)
[2025-06-04 05:08] LABS: Hematocrit 42.7 % (37.0-47.0); Hemoglobin 13.9 g/dL (12.0-15.0); Mean Corpuscular HGB Conc 32.6 g/dl (32-36); Mean Corpuscular Hemoglobin 28.9 pg (26-34); Mean Corpuscular Volume 88.8 fl (80-100); Platelet Count Result 164 k/mm3 (150-375); Red Blood Count 4.81 M/mm3 (4.2-5.4); White Blood Count 9.8 K/mm3 (4.5-10.0)
[2025-06-04 05:33] LABS: Anion Gap 7 mmol/L (4-12); Blood Urea Nitrogen 23 mg/dL (7-17); Calcium 10.3 mg/dL (8.4-10.2); Carbon Dioxide 24 mmol/L (22-30); Chloride 105 mmol/L (98-107); Estimated CRCL calculation 50 ml/min; Estimated Glomerular Filt Rate 54; Glucose 120 mg/dL (65-110); Potassium 3.7 mmol/L (3.4-5.0); Sodium 136 mmol/L (137-145)
[2025-06-04] MEDS: LEVOTHYROXINE SODIUM 125 MCG TABLET PO (06:12)
[2025-06-04] MEDS: FLUTICASONE PROP 220 MCG (*SP) 12 GM INHALER 1 PUFF INHALATION ×2 (08:39→20:31)
[2025-06-04] MEDS: FLUTICASONE PROPIONATE 0.05% NA SPR 16 GM BTL (*BKC) 2 SPRAY NASAL (08:49)
[2025-06-04] MEDS: ENOXAPARIN 40 MG/0.4 ML SYRINGE SUB-Q (08:49)
[2025-06-04] MEDS: PANTOPRAZOLE SOD SESQUIHYDRATE 20 MG TAB PO (08:50)
[2025-06-04] MEDS: POTASSIUM CHLORIDE 10 MEQ ER TABLET PO (08:50)
[2025-06-04] MEDS: ATORVASTATIN 10 MG TABLET PO (08:50)
[2025-06-04] MEDS: LOSARTAN POTASSIUM 25 MG TABLET PO (08:50)
[2025-06-04] MEDS: oxyCODONE/ACETAMINOPHEN (*CRX) 10-325 MG TABLET 1 TAB PO ×2 (08:50→17:15)
[2025-06-04] MEDS: METOPROLOL TARTRATE 25 MG TABLET PO (08:57)
[2025-06-04] MEDS: IBUPROFEN 400 MG TABLET 800 MG PO ×2 (13:09→21:11)
--- NOTE | 2025-06-04 13:46 | P.PNGS_ITS ---
Progress Note: A&P Assessment and Plan (1) Encounter for follow-up examination after completed treatment for conditions other than malignant neoplasm: Code(s): Z09 - Encounter for follow-up examination after completed treatment for conditions other than malignant neoplasm Status: Acute Assessment and Plan: * Patient not eating yet. Discussed that I cannot discharge until tolerating a solid diet. Having some nausea as well. If she is able to tolerate solid food, might be able to discharge this afternoon, otherwise will have to wait until tomorrow. (2) Other specified postprocedural states: Code(s): Z98.890 - Other specified postprocedural states Status: Acute (3) HTN (hypertension): Code(s): I10 - Essential (primary) hypertension Status: Acute (4) Type 2 diabetes mellitus: Code(s): E11.9 - Type 2 diabetes mellitus without complications Status: Acute (5) JANET (obstructive sleep apnea): Code(s): G47.33 - Obstructive sleep apnea (adult) (pediatric) Status: Acute Subjective Subjective Date/Time Seen: 06/04/25 13:46 Interval history: Pain improving but still requiring IV pain meds. Hasn't tried eating anything since surgery yet. Nauseated and had slight dry heaves while being assessed. Exam GI: Inspection: non-distended, incision (intact with glue), Pannus present and obesity GI Palp: Yes Soft to palpation, Yes Tenderness to palpation present (GI) (incisional) and No Guarding due to palpation present (GI) Objective Data Vital Signs Vital Signs: Vital Signs - 24 hr 06/03/25 17:13 06/03/25 17:25 06/03/25 17:40 Temperature 97.8 F Pulse Rate 87 76 76 Respiratory Rate 14 19 20 Blood Pressure 119/87 119/87 111/69 Pulse Oximetry 100 100 100 Oxygen Delivery Simple Face Mask Simple Face Mask Room Air Oxygen Flow Rate 10 10 06/03/25 17:55 06/03/25 18:10 06/03/25 18:25 Temperature Pulse Rate 76 76 82 Respiratory Rate 19 20 20 Blood Pressure 114/82 114/67 111/73 Pulse Oximetry 99 98 93 Oxygen Delivery Room Air Room Air Room Air Oxygen Flow Rate 06/03/25 18:33 06/03/25 18:48 06/03/25 19:18 Temperature 96.8 F L 96.3 F L 96.3 F L Pulse Rate 73 76 76 Respiratory Rate 22 H 181 H 18 Blood Pressure 119/68 1134/61 H 113/61 Pulse Oximetry 94 94 94 Oxygen Delivery Oxygen Flow Rate 06/03/25 20:01 06/03/25 20:03 06/03/25 22:40 Temperature 96.3 F L 96.3 F L Pulse Rate 76 76 Respiratory Rate 18 18 Blood Pressure 113/61 113/61 Pulse Oximetry 94 94 94 Oxygen Delivery Room Air Oxygen Flow Rate 06/03/25 22:45 06/04/25 00:07 06/04/25 02:45 Temperature 97.6 F Pulse Rate 76 83 74 Respiratory Rate 20 18 18 Blood Pressure 107/51 L Pulse Oximetry 94 96 95 Oxygen Delivery Autopap Autopap Oxygen Flow Rate 06/04/25 04:18 06/04/25 04:55 06/04/25 08:18 Temperature 97.4 F L 97.4 F L 97.7 F Pulse Rate 96 96 105 H Respiratory Rate 18 18 16 Blood Pressure 138/67 138/67 91/53 L Pulse Oximetry 90 90 96 Oxygen Delivery Oxygen Flow Rate 06/04/25 08:50 06/04/25 08:57 Temperature Pulse Rate 104 H Respiratory Rate Blood Pressure Pulse Oximetry Oxygen Delivery Room Air Oxygen Flow Rate Intake/Output Intake/Output: Intake & Output 06/01/25 06/02/25 06/03/25 06/04/25 23:59 23:59 23:59 23:59 Intake Total 350 512 Balance 350 512 Meds/Results Medications: Active Medications Generic Name Dose Route Start Last Admin Trade Name Arpitq PRN Reason Stop Dose Admin Atorvastatin Calcium 10 mg 06/04/25 09:00 06/04/25 08:50 Atorvastatin 10 Mg Tablet PO 10 mg DAILY SOHA Administration Enoxaparin Sodium 40 mg 06/04/25 09:00 06/04/25 08:49 Enoxaparin 40 Mg/0.4 Ml Syringe SUB-Q 40 mg DAILY SOHA Administration Fluticasone Propionate 1 puff 06/03/25 20:00 06/04/25 08:39 Fluticasone Prop 220 Mcg (*Sp) 12 Gm Inhaler INHALATION 1 puff Q12HRT SOHA Administration Fluticasone Propionate 2 spray 06/04/25 09:00 06/04/25 08:49 Fluticasone Propionate 0.05% Na Spr 16 Gm Btl (*Bkc) NASAL 2 spray DAILY SOHA Administration Furosemide 20 mg 06/04/25 09:00 06/04/25 08:58 Furosemide 20 Mg Tablet PO Not Given QAM SOHA Hydrochlorothiazide 6.25 mg 06/04/25 09:00 06/04/25 08:58 Hydrochlorothiazide 6.25 Mg Tablet PO Not Given DAILY SOHA Hydromorphone HCl 1 mg 06/03/25 18:33 06/04/25 13:09 Hydromorphone Hcl Inj (*Crx) 1 Mg/Ml Syr IV PUSH 1 mg Q2H PRN Administration Breakthrough Pain Rated 7-10 or NPO Hydromorphone HCl 0.5 mg 06/03/25 18:33 Hydromorphone Hcl Inj (*Crx) 1 Mg/Ml Syr IV PUSH Q2H PRN Breakthrough Pain Rated 4-6 or NPO Ibuprofen 800 mg 06/03/25 19:00 06/04/25 13:09 Ibuprofen 400 Mg Tablet PO 800 mg Q8HR SOHA Administration Levothyroxine Sodium 125 mcg 06/04/25 06:30 06/04/25 06:12 Levothyroxine Sodium 125 Mcg Tablet PO 125 mcg DAILY@0630 SOHA Administration Losartan Potassium 25 mg 06/04/25 09:00 06/04/25 08:50 Losartan Potassium 25 Mg Tablet PO 25 mg DAILY SOHA Administration Metoprolol Tartrate 25 mg 06/04/25 09:00 06/04/25 08:57 Metoprolol Tartrate 25 Mg Tablet PO 25 mg DAILY SOHA Administration Naloxone HCl 0.1 mg 06/03/25 18:33 Naloxone Hcl 0.4 Mg/Ml Vial IV PUSH Q2M PRN Opiate Reversal Ondansetron HCl 4 mg 06/03/25 18:33 Ondansetron Inj 4 Mg/2 Ml Vial IV PUSH Q4H PRN Nausea And Vomiting Oxycodone/Acetaminophen 1 tablet 06/03/25 18:33 Oxycodone/Acetaminophen (*Crx) 5-325 Mg Tablet PO Q4H PRN Pain Rated 4-6 Oxycodone/Acetaminophen 1 tab 06/03/25 18:33 06/04/25 08:50 Oxycodone/Acetaminophen (*Crx) 10-325 Mg Tablet PO 1 tab Q6H PRN Administration Pain Rated 7-10 Pantoprazole Sodium 20 mg 06/04/25 09:00 06/04/25 08:50 Pantoprazole Sod Sesquihydrate 20 Mg Tab PO 20 mg QAM SOHA Administration Potassium Chloride 10 meq 06/04/25 09:00 06/04/25 08:50 Potassium Chloride 10 Meq Er Tablet PO 10 meq DAILY SOHA Administration Labs Labs: Laboratory Results - last 24 hr 06/03/25 06/04/25 16:36 04:32 WBC 9.8 RBC 4.81 Hgb 13.9 Hct 42.7 MCV 88.8 MCH 28.9 MCHC 32.6 RDW 13.3 Plt Count 164 MPV 10.3 Sodium 136 L Potassium 3.7 Chloride 105 Carbon Dioxide 24 Anion Gap 7 BUN 23 H D Creatinine 1.01 H Estim Creat Clear Calc 50 Estimated GFR 54 L Glucose 120 H POC Capillary Glucose 133 H Calcium 10.3 H
[2025-06-04] MEDS: ONDANSETRON INJ 4 MG/2 ML VIAL IV PUSH (14:32)
[2025-06-05 04:25] VITALS: BP 134/71; PULSE 98; RESP 18; TEMP 36.5; O2SAT 97
--- NOTE | 2025-06-05 05:07 | PC.NURSE ---
PCT notified RN that patient pulled out both IV sites. Patient stated they were bothering her and she asked for them to be removed. Patient then went on about how she does not like the care we are providing. Patient does not agree on bed/chair alarms, using her rollator to move around, and staff assisting her with activity. Patient educated on the importance of safety and why protocols are in place. Charge nurse at bedside, explained the reason we have safety measures for patients, patient continues to refuse care. Able to answer all questions pertaining to alert and orientation status but staff presume patient to be altered from normal baseline. Patient request for staff to leave her alone and she will sit on couch without alarms.
[2025-06-05] MEDS: IBUPROFEN 400 MG TABLET 800 MG PO (05:42)
[2025-06-05] MEDS: LEVOTHYROXINE SODIUM 125 MCG TABLET PO (05:42)
--- NOTE | 2025-06-05 10:00 | P.DS_ITS ---
DS: Admitting Diagnosis Discharge Date 06/05/25 Admitting Diagnosis Incarcerated umbilical hernia, COPD, JANET, type 2 diabetes, BMI 45 DS: Discharge Diagnosis Discharge Diagnosis (1) Incarcerated umbilical hernia: Code(s): K42.0 - Umbilical hernia with obstruction, without gangrene Status: Acute (2) BMI 45.0-49.9, adult: Code(s): Z68.42 - Body mass index [BMI] 45.0-49.9, adult Status: Acute (3) Type 2 diabetes mellitus: Code(s): E11.9 - Type 2 diabetes mellitus without complications Status: Acute (4) JANET (obstructive sleep apnea): Code(s): G47.33 - Obstructive sleep apnea (adult) (pediatric) Status: Acute (5) COPD (chronic obstructive pulmonary disease): Code(s): J44.9 - Chronic obstructive pulmonary disease, unspecified Status: Acute (6) Stage 3b chronic kidney disease: Code(s): N18.32 - Chronic kidney disease, stage 3b Status: Acute DS: Summary Hospital Course Reason for hospitalization: Postoperative pain control and postoperative nausea and vomiting Hospital Course: This is a 75-year-old woman who presented for robotic assisted laparoscopic incarcerated umbilical hernia repair on 06/03/2025. The patient was found to have an umbilical hernia incarcerated with small bowel and omentum. The hernia was also very large measuring about 6 cm in widest diameter. She was placed in outpatient extended recovery postoperatively due to the size and extensive incar cerated contents within the hernia defect. She was experiencing a moderate amount of pain postoperatively and required IV pain medications. She is also experiencing postoperative nausea and initially did not want to eat or drink anything. On postop day 1, her pain control was somewhat improved. She had not tried eating breakfast and was feeling somewhat nauseated. She attempted eating lunch but began vomiting. She was given antiemetics and IV fluids until she was better tolerating her diet. On postoperative day to her diet was tolerated and her nausea had resolved. Her pain was better controlled with oral pain medications. She was discharged home on 06/05/2025. Status at Discharge Functional status at discharge: uses cane/walker Overall status at discharge: patient is progressing back to baseline Time Spent with Patient Time attestation: Total time spent providing and/or coordinating discharge services: Time spent: Less than 30 minutes Exam Const: General: no acute distress and alert Orientation/consciousness: patient oriented x3 GI: Inspection: incision (Intact with glue) and Pannus present GI Palp: Yes Soft to palpation, Yes Tenderness to palpation present (GI) (Incisional and periumbilical) and No Guarding due to palpation present (GI) DS: Data Data Completed and Pending Completed studies during hospitalization: Pending at discharge 06/03/25 16:47 Surgical [PTH] Routine Discharge Plan Discharge Attending physician on discharge: Yaya Borja Consulting providers: Compa Benavides Discharging Clinician: Yaya Borja Patient Disposition: Home Activity: other - see discharge instructions Diet: diabetic Wound Care Instructions: other - see discharge instructions Discharge Instructions: DISCHARGE INSTRUCTION SHEET FOR HERNIA, GALLBLADDER AND APPENDIX SURGERIES DR. BORJA PATIENT TO TAKE HOME 1. May shower, no soaking in bath x 2weeks. 2. Call office for: * Wound increasingly painful or bleeding * Vomiting * Fever of greater than 101 degrees 3. If no bowel movement for three days, take 1 oz. (30 ml) Milk of Magnesia or MiraLax 17g 1 to 2 times daily. 4. No heavy lifting > 10-15 pounds x 6 weeks for hernia repairs 5. No driving for 3 days or while taking narcotic pain medications. 6. Ice to surgical site for 48 hours (30 min on, then 30 min off). 7. Up walking 10-30 minutes three times per day. 8. Resume previous home medications. 9. Follow-up 10-14 days in office for wound check or as previously scheduled. ([id number]) 10. Oral pain medications prescription to be sent to pharmacy. Take Tylenol 500mg every 6 hours and Ibuprofen 600mg every 6 hours for the first 2 days, then as needed. 11. NUTRITION: Start out by drinking fluids and increase your diet as tolerated. If you experience nausea, try dry toast, crackers, and 7-UP. If nausea or vomiting persists, contact your surgeon?s office. Revised December 2018 Patient Instructions: Antibiotic Form Patient Language: Sinhala Stand Alone Forms: General Discharge Information Follow-up/Referrals: Yaya Borja DO [Physician, General Surgery] - 06/17/25 8:15 am Discharge Medications: New oxycodone-acetaminophen [Endocet] 5-325 mg tablet 1 tablet PO Q4H PRN (Reason: pain) Qty: 10 0RF ibuprofen 800 mg tablet 800 mg PO Q8H PRN (Reason: pain) Qty: 15 0RF Continued atorvastatin [Lipitor] 10 mg tablet 10 mg PO DAILY furosemide 20 mg tablet 20 mg PO QAM potassium chloride [Klor-Con 10] 10 mEq tablet extended release 10 meq PO DAILY levothyroxine 125 mcg capsule 125 mcg PO DAILY metoprolol tartrate 50 mg tablet 25 mg PO DAILY fluticasone propionate [Flovent HFA] 220 mcg/actuation HFA aerosol inhaler 1 puff inhalation Q12H losartan-hydrochlorothiazide 100-25 mg tablet 0.25 tablet PO DAILY pantoprazole 20 mg tablet,delayed release (DR/EC) 20 mg PO QAM fluticasone propionate 50 mcg/actuation spray,suspension 2 spray intranasal DAILY Rx Instructions: administer into each nostril Mounjaro 7.5 mg/0.5 mL pen injector 7.5 mg SUBCUT WEEKLY Patient Comments: TAKES ON MONDAYS cholecalciferol (vitamin D3) 50 mcg (2,000 unit) capsule 2,000 unit PO DAILY PreserVision AREDS-2 250-90-40-1 mg capsule 1 tablet PO ONCE cranberry 450 mg tablet 450 mg PO DAILY Rx Instructions: administer with a meal krill oil 500 mg capsule 500 mg PO DAILY Kerendia 10 mg tablet See Rx Instructions .ROUTE .COMPLEX Qty: 30 12RF Dose Instruction: TAKE 1 TABLET BY MOUTH DAILY Rx Instructions: TAKE 1 TABLET BY MOUTH DAILY Date of admission: 06/04/25 14:04 Primary Care Provider: Angel Escamilla Admitting Provider: Yaya Borja Attending physician on admission: Yaya Borja Condition: Improved
== END 2025-06-05 09:55 | disposition home or self-care (01) ==
LOC: ANHSURGERY 14:52 → ANH2MED 14:52
PROVIDERS: Admitting Provider Surgery; PCP Family Medicine; Visit Provider Surgery
PROC: (CPT 49594; principal; 2025-06-03 12:30)
DX: K42.0 Umbilical hernia with obstruction, without gangrene (principal); G89.18 Other acute postprocedural pain; R11.2 Nausea with vomiting, unspecified; I12.9 Hypertensive chronic kidney disease with stage 1 through stage 4 chronic kidney disease, or unspecified chronic kidney disease; E11.22 Type 2 diabetes mellitus with diabetic chronic kidney disease; N18.32 Chronic kidney disease, stage 3b; J44.9 Chronic obstructive pulmonary disease, unspecified; G47.33 Obstructive sleep apnea (adult) (pediatric); Z87.891 Personal history of nicotine dependence; E66.01 Morbid (severe) obesity due to excess calories; Z68.41 Body mass index [BMI] 40.0-44.9, adult
CPT/HCPCS: 49594; S2900; 36415; 80048; 82948; 85027; 86850; 86900; 86901; 88302; 88307; 94640; J0690; A9270; C1781; G0378; J1171; J1650; J1885; J2003; J2405; J2704; J3010; J7120

== ENCOUNTER 2025-06-29 13:40 | Outpatient (CLI) | payer MEDICARE, OTHER, SELFPAY ==
[2025-06-29 13:54] LABS: Hematocrit 39.2 % (35.0-42.0); Hemoglobin 12.9 g/dL (11.7-13.8); Immature Granulocyte Percent A 0.3 % (0.0-0.0); Lymphocytes Absolute Auto 2.14 K/mm3 (1.10-4.50); Mean Corpuscular HGB Conc 32.9 g/dL (32-36); Mean Corpuscular Hemoglobin 28.9 pg (27.0-31.0); Mean Corpuscular Volume 87.9 fL (78.0-102.0); Nucleated Red Blood Cells Absolute Auto 0.00 K/mm3 (0.00-0.00); Nucleated Red Blood Cells Perc 0.0 % (0-0.0); Platelet Count Result 267 K/mm3 (150-420); Red Blood Count 4.46 M/mm3 (4.20-5.40); White Blood Count 7.6 K/mm3 (4.8-10.8)
[2025-06-29 14:08] LABS: Alanine Aminotransferase 19 U/L (6-35); Albumin Level 4.3 g/dL (3.5-5.1); Alkaline Phosphatase 114 U/L (38-126); Anion Gap 11 mmol/L (4-12); Aspartate Amino Transferase 29 U/L (14-36); Bilirubin,Total 1.4 mg/dL (0.2-1.3); Blood Urea Nitrogen 27 mg/dL (7-17); Calcium 10.9 mg/dL (8.4-10.2); Carbon Dioxide 25 mmol/L (22-30); Chloride 106 mmol/L (98-107); Estimated Glomerular Filt Rate 46; Glucose 106 mg/dL (65-110); Osmolality Calculated 299 mOsm/kg (285-295); Potassium 4.1 mmol/L (3.4-5.0); Sodium 142 mmol/L (137-145); Total Protein 7.1 g/dL (6.3-8.2)
[2025-06-29 14:10] LABS: Hemoglobin A1C 5.4 % (<5.7)
[2025-06-29 14:11] LABS: Total Protein Urine Random 16 mg/dL; Ur Ttl Prot Creatinine Ratio 0.10 mg/mg (0-0.20)
[2025-06-29 14:13] LABS: MALB Creatinine Ratio 56.4 mg/g (0-30)
[2025-06-29 14:38] LABS: Thyroid Stimulating Hormone 0.766 uIU/mL (0.465-4.680)
[2025-06-30 07:50] LABS: Parathyroid Intact 39.4 (7.5-53.5)
--- OUTSIDE RECORDS SUMMARY | 2025-06-30 13:02 | XMS_ITS | Clinical Summary ---
Author Organization [facility] Address [address] [place] [address] Phone Care Team Providers Care Healthcare Management Consultant Name Role Phone Yousuf Calixto MD Primary Care Provider [phone] Allergies No known active allergies Medications verapamil [...] file Legal Sex Female 3:27 AM [employer]NA[employer] Gender Identity Not on file Sexual Orientation [...] Screening 1996 Immunochemical Fecal Occult Blood 1996 Respiratory Syncytial Virus (RSV) Immunization (Adult) (1 - Risk 50-74 years 1-dose series) 2001 Diabetes: Hemoglobin A1c 01/29/2010 009, 05/08/2009, 01/27/2009, Additional history exists Pneumococcal Immunization (50+ years) (2 of 2 - PCV) 12/30/2015 12/29/2014 Zoster Immunization (2 of 3) 07/04/2016 05/09/2016 Medicare Initial AWV G0438 02/22/2017 Diabetes: Nephropathy Screening 11/17/2019 11/16/2018, 07/31/2009, 01/27/2009 Influenza Immunization (#1) 04/25/202504/25, 05/02/2016, 05/29/2015, Additional history exists SARS-COV-2 Immunization () 04/25/2025 05/29/2021, 11/03/2020, 10/13/2020 DTaP/Tdap/Td Immunization Discontinued 10/26/2014, [...] ESTIMATED GLUCOSE Routine 07/31/2009 9:00 AM MANAGER PARK from Last 3 Months or Most Recently Relevant to Health Maintenance Results * (ABNORMAL) Comprehensive Metabolic Panel (CMP) (11/16/2018 4:42 PM CDT) SODIUM 136 133 - 145 mmol/L 11/16/2018 5:56 PM [facility] POTASSIUM 3.4(L) 3.5 - 5.1 mmol/L 11/16/2018 5:56 PM [facility] CHLORIDE 99 96 - 108 mmol/L 11/16/2018 5:56 PM [facility] CO2, VENOUS 24 21 - 32 mmol/L 11/16/2018 5:56 PM [facility] ANION GAP 16.4 10.0 - 20.0 mmol/L 11/16/2018 5:56 PM [facility] GLUCOSE 288(H) 80 - 115 mg/dL 11/16/2018 5:56 PM [facility] BUN 29(H) 6 - 19 mg/dL 11/16/2018 5:56 PM [facility] CREATININE, BLOOD 1.10 0.40 - 1.10 mg/dL 11/16/2018 5:56 PM [facility] BUN/CREATININE RATIO 26(H) 12 - 20 ratio 11/16/2018 5:56 PM [facility] TOTAL PROTEIN 7.6 6.0 - 8.2 g/dL 11/16/2018 5:56 PM [facility] ALBUMIN 3.7 3.4 - 4.8 g/dL 11/16/2018 5:56 PM [facility] CALCIUM 10.0 8.8 - 10.0 mg/dL 11/16/2018 5:56 PM [facility] T BILI 0.6 0.0 - 1.0 mg/dL 11/16/2018 5:56 PM [facility] SGOT (AST) 17 0 - 37 U/L 11/16/2018 5:56 PM [facility] SGPT (ALT) 27 12 - 45 U/L 11/16/2018 5:56 PM [facility] ALKALINE PHOSPHATASE 89 39 - 117 U/L 11/16/2018 5:56 PM [facility] GFR, EST. NONAFRICAN 48 11/16/2018 5:56 PM [facility] Comment: Reference interval for MDRD GFR: GFR >=60: Satisfactory kidney function GFR <60: Chronic kidney disease GFR <15: Kidney failure Estimated GFR may be less reliable in patients >70yr, women, patients with serious comorbid conditions, or patients with extremes of body size, muscle mass, or nutritional status. Revised 11/18/07 (National Kidney Disease Education Program) GFR, EST. 57(L) >=60 019 5:56 PM [facility] Comment: Reference interval for MDRD GFR: GFR [...] 4:42 PM CDT 11/16/2018 4:51 PM CDT [facility] 11/16/2018 5:56 PM [facility][NOTE 3] Venipuncture should occur prior to sulfasalazine and/or sulfapyridine administration due to the potential for falsely depressed results for ALT and AST. Glucose can be falsely depressed after administration of sulfasalazine, and falsely elevated with administration of sulfapyridine. us Yue Campos MD CHEMISTRY ORDERABLES Final Result [facility] [address] [place] [address] * [facility] SCREENING BILATERAL DIGITAL W CAD (03/25/2017 9:51 AM CDT) Anatomical Region Laterality Modality breast Bilateral Mammography 03/25/2017 9:54 AM CDT Impressions 03/25/2017 9:54 AM CDT ASSESSMENT: BI-RADS 2; BENIGN RECOMMENDATIONS: Yearly screening mammogram in 1 year. CAD used DICTATION LOCATION: [facility] Signed By: Danielito Emanuel M.D. Narrative 03/25/2017 9:54 AM CDT PATIENT HISTORY: Patient is postmenopausal. Family history of breast cancer at age 50 in paternal aunt, breast cancer at age 90 in paternal grandmother. Patient's BMI is 54.9. Last mammogram was performed 4 years and 3 months ago. REASON FOR EXAM: screening, asymptomatic. FINDINGS: [facility] SCREENING BILATERAL DIGITAL W CAD Bilateral CC and MLO view(s) were taken. Technologist: Alanis Brambila, RT(R) Prior study comparison: January 06, 2013, bilateral NMA SCR MAMMO DDI performed at [facility]. The breast tissue is average. No significant changes when compared with prior studies. Finding: Calcifications Laterality: bilateral Description: There are typically benign punctate, rim, round calcifications. Distribution is diffuse/scattered. us Yousuf Calixto MD IMG MAMMO ORDERABLES Final Resul t * (ABNORMAL) HBA1C, EST GLUCOSE (07/31/2009 9:00 AM MANAGER PARK) HGB-A1C 6.5(H) 4.0 - 6.0 % [facility] Est Average Glucose 139.9 MG/DL [facility] 07/31/2009 9:00 AM [employer]NAGER [employer]ARK 07/31/2009 7:45 PM MANAGER [employer]ARK us Alpesh Tay DO CHEMISTRY ORDERABLES Final Res ult [facility] [address] [place] [address] from Last 3 Months or Most Recently Relevant to Health Maintenance Insurance [employer] [facility] BENEFITS MEDICARE Advance Directives * Full Code (Latest Code Status on File) Date Activated Date Inactivated Comments 11/16/2018 4:35 PM 11/17/2018 8:40 PM CPR-Full Josef atment: FULL ARREST: Attempt Resuscitation/CPR wit intubation and mechanical ventilation. PRE-ARREST: Use entire range of life support measures to stabilize the patient. Care Teams Healthcare Management Consultant Relationship Specialty Start Date End Date Yousuf Calixto MD [address] [place] [address] PCP - General Family Medicine 05/18/15
--- OUTSIDE RECORDS SUMMARY | 2025-06-30 13:02 | XMS_ITS | Clinical Summary ---
Author Organization [facility] Address [address] [place] [address] Care Team Providers Care Instrument Sterilizer Name Role Phone Angel Escamilla MD Primary Care Provider [phone] Allergies Active Allergy Reactions Criticality Noted Date [...] 05/09/2016 COVID-19 Vaccine (1 - season) 2025 Influenza Adult (#1) 2025 05/10/2017 Mammogram Screening 01/14/2026 01/15/2024, 11/19/2022, 06/07/2020, Additional history exists Colorectal Cancer Screening Colonoscopy (10 Years) 05/20/2033 05/20/2023, 05/20/2023, 06/13/2020, Additional history exists EGD-Jackson's Surveillance Discontinued 10/10/2023, Hepatitis A Vaccines Aged Out No long er eligible based on patient's age to complete this topic Meningococcal B Vaccine Aged Out No l [...] mammogram ENDOSCOPY (SCAN ORDER) 10/10/2023 6:38 AM LIPCOAT SPRAYER COLONOSCOPY 05/20/2023 6:46 AM CDT from Last [...] * ENDOSCOPY (SCAN ORDER) (10/10/2023 6:38 AM LIPCOAT SPRAYER) Simone Solomon MD SCANNING Final Result * Colonoscopy (05/20/2023 6:46 AM CDT) Simone Solomon MD GI PROCEDURE ORDERABLES Final Result from Last 3 Months or Most Recently Relevant to Health Maintenance Insurance MEDICARE [employer] Care Teams Instrument Sterilizer Relationship Specialty Start Date End Date Angel Escamilla MD [address] [place] [address] PCP - General FAMILY PRACTICE 11/05/24
== END 2025-06-29 13:41 | disposition home or self-care (01) ==
LOC: CHSLAB 13:41
PROVIDERS: PCP Family Medicine; Visit Provider Internal Medicine Nephrology
DX: E03.9 Hypothyroidism, unspecified (principal); N18.31 Chronic kidney disease, stage 3a; I12.9 Hypertensive chronic kidney disease with stage 1 through stage 4 chronic kidney disease, or unspecified chronic kidney disease; E11.22 Type 2 diabetes mellitus with diabetic chronic kidney disease; N25.81 Secondary hyperparathyroidism of renal origin; E55.9 Vitamin D deficiency, unspecified
CPT/HCPCS: 36415; 80053; 82043; 82306; 82570; 83036; 83970; 84100; 84156; 84443; 85025